=== PATIENT | male | born 1930 | race Caucasian/White ===

== ENCOUNTER 2018-03-23 20:32 | Inpatient (IN) | payer MEDICARE ==
[~2018-03-23] VITALS: Ht 172.7 cm; Wt 92.1 kg
[~2018-03-23 20:32] MED LIST: KEFLEX500 MG PO; LEVOTHYROXINE112 MCG PO; METOPROLOL SUCC50 MG PO; MINOCYCLINE HCL50 MG PO; ULTRAM50 MG PO; WARFARIN SODIUM3 MG PO
[2018-03-23] MEDS ORDERED: MORPHINE SULFATE 2 MG/ML SYR IV STA ×2 (20:38→23:00)
[2018-03-23] MEDS ORDERED: ONDANSETRON HCL INJ 2 MG/ML VIAL IV STA (20:40)
[2018-03-23 21:00] LABS: BASOPHILS # (AUTO) 0.1 (0.0-0.1); BASOPHILS % 0.4 % (0.0-1.0); EOSINOPHILS # (AUTO) 0.1 (0.0-0.4); EOSINOPHILS % 0.3 % (0.0-6.0); HEMATOCRIT 41.5 % (38.2-49.6); HEMOGLOBIN 13.8 g/dL (14.0-18.0); LYMPHOCYTES # (AUTO) 1.5 (1.0-3.2); LYMPHOCYTES % 7.3 % (18.0-39.1); MEAN CORPUSCULAR HEMOGLOBIN 31.2 pg (28-32); MEAN CORPUSCULAR HGB CONC 33.3 g/dL (31-35); MEAN CORPUSCULAR VOLUME 93.9 fL (81-99); MONOCYTES # (AUTO) 1.2 (0.2-0.8); NEUTROPHILS # (AUTO) 17.5 (2.1-6.9); NEUTROPHILS % 84.1 % (38.7-80.0); PLATELET COUNT 182 x10e3/uL (140-360); RED BLOOD COUNT 4.42 x10e6/uL (4.3-5.7); RED CELL DISTRIBUTION WIDTH 15.5 % (11.7-14.4)
[2018-03-23] MEDS ORDERED: DIATRIZOATE MEGL/DIATRIZOA SOD 30 ML BTL PO ONE (21:05)
[2018-03-23 21:13] LABS: INR 1.82; PROTHROMBIN TIME 19.8 seconds (11.9-14.5)
[2018-03-23 21:14] LABS: PARTIAL THROMBOPLASTIN TIME 29.5 seconds (23.8-35.5)
[2018-03-23] MEDS: SODIUM CHLORIDE 0.9% 1000ML 1,000 ML IV SCH (21:20)
[2018-03-23 21:21] LABS: ALBUMIN 3.3 g/dL (3.5-5.0); ALBUMIN/GLOBULIN RATIO 0.8 (0.8-2.0); ANION GAP 14.3 mmol/L (8-16); CALCIUM 9.4 mg/dL (8.4-10.2); CREATININE, SERUM 1.32 mg/dL (0.72-1.25); POTASSIUM 4.3 mmol/L (3.5-5.1)
[2018-03-23 21:27] LABS: CREATINE KINASE MB 1.3 ng/mL (0-5.0)
[2018-03-23 21:39] LABS: CLARITY,URINE CLOUDY (CLEAR); COLOR,URINE YELLOW (YELLOW)
[2018-03-23 21:40] LABS: LEUKOCYTE ESTERASE ,URINE 2+ (NEGATIVE); NITRITE,URINE POSITIVE (NEGATIVE); PROTEIN,URINE DIPSTICK 1+ (NEGATIVE)
[2018-03-23 21:41] LABS: BILIRUBIN,URINE NEGATIVE (NEGATIVE); KETONES,URINE NEGATIVE (NEGATIVE); URINE UROBILINOGEN 0.2 mg/dL (0.2 - 1)
[2018-03-23 21:43] LABS: BACTERIA,URINE MODERATE /HPF; WBC,URINE (MAN) >50 /HPF (0-5)
[2018-03-23 21:44] LABS: EPITHELIAL CELLS,URINE RARE /LPF
[2018-03-23] MEDS ORDERED: SODIUM CHLORIDE 0.9% 1000ML 1,000 ML IV ONE (21:45)
[2018-03-23] MEDS ORDERED: CEFTRIAXONE SOD 1 GM VIAL IV ONE (22:15)
[2018-03-24] VITALS (10 sets, daily range): BP systolic 135–176; BP diastolic 73–99
--- NOTE | 2018-03-24 00:10 | Diagnostic Imaging Report ---
History:Fall Comparison studies:Head CT on 01/10/2017 Technique: Axial images were obtained from the skull base to the vertex. Coronal and sagittal images reconstructed from the axial data. Intravenous contrast: None Findings: Scalp/skull: No abnormalities. Extra-axial spaces: No masses. No fluid collections. Brain sulci: Moderately prominent. Ventricles: Moderate compensatory dilatation. No hydrocephalus. Parenchyma: Scattered hypodensities in the supratentorial white matter are small vessel ischemic changes. An old lacunar insult is centered in the lateral aspect of the right thalamus. No masses, hemorrhage, acute or chronic cortical vascular insults. Sellar/suprasellar region: No abnormalities. Craniocervical junction: Patent foramen magnum. No Chiari one malformation. Incidental findings: Atherosclerotic calcifications in the carotid siphons and left vertebral artery. Artificial lenses in place. Impression: 1. No acute abnormalities. . Chronic findings: 1. Moderate generalized volume loss. 2. Moderate supratentorial white matter small vessel ischemic changes. 3. 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 Signed by: DR Isauro Lang M.D. on 03/24/2018 12:07 AM
--- NOTE | 2018-03-24 00:34 | Diagnostic Imaging Report ---
EXAM: CT ABDOMEN AND PELVIS with IV CONTRAST DATE: 03/23/2018 8:37 PM Time stamp on Exam: 2343 hours INDICATION: Abdominal pain, fall, right flank pain COMPARISON: None TECHNIQUE: The abdomen and pelvis were scanned using a multidetector helical scanner. Coronal and sagittal reformations were obtained. Routine protocol performed. IV Contrast: None Oral Contrast: Gastrografin CTDIvol has been reviewed. It is below the limits set by the Radiation Protocol Committee (RPC). FINDINGS: LOWER THORAX: Mild bibasilar atelectasis. Partially visualized cardiomegaly. LIVER: No masses BILIARY: The gallbladder is unremarkable. No ductal dilation. SPLEEN: No masses PANCREAS: No masses ADRENALS: No nodules KIDNEYS: Edematous appearance of the right kidney in comparison to the left with moderate hydroureteronephrosis, perinephric fat stranding and uroepithelial enhancement. Normal perfusion of the left kidney. No hydroureteronephrosis. Simple cyst of the right kidney measuring 1.8 cm. Simple cortical cyst of the left kidney measuring 1.2 cm. Adjacent subcentimeter hypodensity that is too small to characterize. Diverting ureterostomy with ileoconduit to the right lower quadrant. GI TRACT: No distention, wall thickening or evidence of obstruction. Normal appendix. VESSELS: Advanced atherosclerotic changes of the abdominal aorta and branches. PERITONEUM/RETROPERITONEUM: No free air or fluid LYMPH NODES: No lymphadenopathy REPRODUCTIVE ORGANS: Total prostatectomy. BLADDER: Total cystectomy. SOFT TISSUES: Diverticula in ureterostomy in the right lower pelvis. Large parastomal hernia containing bowel. No evidence of obstruction. BONES: No suspicious bone lesions. Severe degenerative changes of the bilateral hips, right greater than left. IMPRESSION: 1. Total cystoprostatectomy with diverting ureterostomy. Delayed right nephrogram and moderate right hydroureteronephrosis with the level of the obstruction at the ileal conduit junction. No obstruction of the left ureter. Uroepithelial enhancement and right perinephric fat stranding suggest superimposed infection. 2. No evidence of acute injury to the abdomen or pelvis. Signed by: Dr. Patti Posey M.D. on 03/24/2018 12:31 AM
--- NOTE | 2018-03-24 00:35 | Diagnostic Imaging Report ---
EXAM: CHEST SINGLE (PORTABLE), AP 1 view INDICATION: Abdominal pain COMPARISON: None FINDINGS: LINES/TUBES: Left approach single lead cardiac device. LUNGS: Mild bibasilar atelectasis. PLEURA: No effusions or pneumothorax. HEART AND MEDIASTINUM: Mild enlargement of the cardiomediastinal silhouette. BONES AND SOFT TISSUES: No acute findings. IMPRESSION: No acute thoracic abnormality. Signed by: Dr. Patti Posey M.D. on 03/24/2018 12:32 AM
[2018-03-24] MEDS ORDERED: METOPROLOL TARTRATE INJ 1 MG/ML VIAL IV ONE (01:00)
[2018-03-24] MEDS: CEFEPIME HCL 1 GM VIAL IV SCH ×2 (01:19→14:23)
[2018-03-24] MEDS: SODIUM CHLORIDE 0.9% 1000ML 1,000 ML IV SCH ×2 (02:09→16:39)
[2018-03-24] MEDS ORDERED: SODIUM CHLORIDE 0.9% 50ML 50 ML ONE (02:47)
[2018-03-24] MEDS ORDERED: IOPAMIDOL 370 MG/ML 200 ML INFUS..BTL INJ ONE (02:47)
[2018-03-24] MEDS: MORPHINE SULFATE 2 MG/ML SYR IV PRN ×3 (03:00→14:23)
[2018-03-24] MEDS: ONDANSETRON HCL INJ 2 MG/ML VIAL IV PRN ×2 (03:00→06:30)
[2018-03-24] MEDS ORDERED: TRAZODONE HCL50 MG PO (04:42)
[2018-03-24] MEDS ORDERED: WARFARIN SODIUM2 MG PO (04:42)
[2018-03-24] MEDS ORDERED: METOPROLOL TART50 MG PO (05:52)
[2018-03-24] MEDS: LEVOTHYROXINE SODIUM 112 MCG TAB PO SCH (07:53)
[2018-03-24] MEDS ORDERED: METOPROLOL SUCCINATE 50 MG TAB XL PO SCH (09:00)
[2018-03-24] MEDS: TRAMADOL HCL 50 MG TAB PO SCH ×2 (09:16→16:40)
[2018-03-24] MEDS: METOPROLOL TARTRATE 50 MG TAB PO SCH ×2 (09:16→16:40)
[2018-03-24] MEDS ORDERED: PHYTONADIONE 10 MG/ML AMP SC NR (10:00)
--- NOTE | 2018-03-24 11:20 | Consultation ---
DATE OF CONSULTATION: March 24, 2018 UROLOGY CONSULTATION REASON FOR CONSULTATION: Hydronephrosis. HISTORY OF PRESENT ILLNESS: Giovany Orona is an 87-year-old man who was previously evaluated and followed by Dr. Oneil. The patient was diagnosed as having bladder cancer that was invasive, and Dr. Oneil referred the patient to a urologist [place] for performance of a cystectomy. Dr. Mclaughlin performed the patient's radical cystoprostatectomy and has been following him ever since. The patient has been treated by Dr. Mclaughlin for recurrent urinary tract infections. The patient reports not having had a CT. The patient had a fall and reported to the emergency room. He was complaining of abdominal pain and was evaluated and found to have hydronephrosis, and urological consultation was sought. The patient has a history of urinary tract infections and hematuria as well as his bladder cancer. He has not had hematuria since his radical cystectomy. PAST MEDICAL AND SURGICAL HISTORY 1. Status post hernia repair. 2. Status post radical cystoprostatectomy. 3. History of TURBT. 4. Hypertension. 5. Atrial fibrillation. 6. Coronary artery disease. 7. Status post pacemaker/AICD implantation. ALLERGIES: NONE KNOWN. CURRENT MEDICATIONS: Please refer to the MAR. REVIEW OF SYSTEMS: As discussed above in the history of present illness and past medical history, otherwise negative for all systems. FAMILY HISTORY: Noncontributory to the active urological problems. SOCIAL HISTORY: The patient quit smoking in his 30s. 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 Denies smoking, ethanol and drug use. PHYSICAL EXAMINATION GENERAL: Very pleasant, 87-year-old male lying in bed in no apparent distress. VITAL SIGNS: He is currently afebrile, and the vital signs are currently stable. ABDOMEN: Soft, nondistended, nontender without costovertebral angle tenderness. Liver and kidneys are not palpable without hepatosplenomegaly. There is an umbilical hernia in place that is small. GENITOURINARY: The patient has an ileal conduit in the right lower quadrant, seems to be functioning well. The urine output seems to be yellow without any blood. The patient has a normal uncircumcised male phallus with phimosis. I cannot see the meatus. Testes are descended bilaterally and are nontender. For the remaining physical examination systems, please refer to the admission history and physical on the chart. LABORATORY STUDIES: The patient has bilateral renal cysts. He has right-sided hydroureteronephrosis that was listed as moderate with perinephric stranding and uroepithelial enhancement. This CT was done with contrast. There was delayed right nephrogram noted on the CT as well. Urine culture is pending, but it will be a stoma culture. White blood cell count is elevated at 20,810. Hemoglobin is slightly low at 13.8. Platelets are normal at 182,000. The patient's creatinine is elevated at 1.32. Urinalysis is significant for nitrite-positive urine with 6-10 RBCs and greater than 50 WBCs. Urine culture is pending. ASSESSMENT 1. Bladder cancer, status post radical cystoprostatectomy. 2. Ileal conduit. 3. Right hydroureteronephrosis. 4. Phimosis. 5. Urinary tract infection. 6. Pyelonephritis. 7. Hematuria. 8. Umbilical hernia. 9. Renal cysts. 10. Leukocytosis. 11. Chronic renal insufficiency. 12. Anemia. PLAN 1. Defer to hematology and the electrolyte abnormalities to the primary physician. 2. I will have the radiologist place a right percutaneous nephrostomy. 3. I agree with current broad-spectrum antibiotics and will follow the patient's clinical status. Thank you very much for involving us in the care of your patient. We will be happy to follow him along with you, as well as an outpatient. GUI MELGOZA MD Job#: [id number] cc:KATHY IBARRA MD
[2018-03-24] MEDS ORDERED: WARFARIN SOD 2 MG TAB PO SCH (17:00)
[2018-03-24] MEDS: TRAZODONE HCL 50 MG TAB PO SCH (20:06)
[2018-03-25] VITALS (25 sets, daily range): BP systolic 67–170; BP diastolic 51–111
[2018-03-25] MEDS: CEFEPIME HCL 1 GM VIAL IV SCH ×2 (01:11→12:57)
[2018-03-25] MEDS: SODIUM CHLORIDE 0.9% 1000ML 1,000 ML IV SCH ×2 (01:14→13:00)
[2018-03-25] MEDS: MORPHINE SULFATE 2 MG/ML SYR IV PRN ×2 (04:00→08:15)
[2018-03-25 04:45] LABS: BASOPHILS # (AUTO) 0.1 (0.0-0.1); BASOPHILS % 0.4 % (0.0-1.0); EOSINOPHILS # (AUTO) 0.2 (0.0-0.4); EOSINOPHILS % 0.8 % (0.0-6.0); HEMATOCRIT 38.2 % (38.2-49.6); HEMOGLOBIN 12.4 g/dL (14.0-18.0); LYMPHOCYTES # (AUTO) 1.4 (1.0-3.2); LYMPHOCYTES % 6.7 % (18.0-39.1); MEAN CORPUSCULAR HEMOGLOBIN 31.1 pg (28-32); MEAN CORPUSCULAR HGB CONC 32.5 g/dL (31-35); MEAN CORPUSCULAR VOLUME 95.7 fL (81-99); MONOCYTES # (AUTO) 1.2 (0.2-0.8); MONOCYTES % 5.9 % (4.4-11.3); NEUTROPHILS # (AUTO) 17.5 (2.1-6.9); PLATELET COUNT 177 x10e3/uL (140-360); RED BLOOD COUNT 3.99 x10e6/uL (4.3-5.7); RED CELL DISTRIBUTION WIDTH 15.8 % (11.7-14.4)
[2018-03-25 05:09] LABS: ALANINE AMINOTRANSFERASE 16 IU/L (0-55); ALBUMIN/GLOBULIN RATIO 0.9 (0.8-2.0); ALKALINE PHOSPHATASE 64 IU/L (40-150); ANION GAP 13.5 mmol/L (8-16); BLOOD UREA NITROGEN 22 mg/dL (7-26); BUN/CREATININE RATIO 20 (6-25); CARBON DIOXIDE 20 mmol/L (22-29); CHLORIDE 107 mmol/L (98-107); CREATININE, SERUM 1.11 mg/dL (0.72-1.25); EST GLOMERULAR FILTRATION RATE > 60 ML/MIN (60-); GLUCOSE 113 mg/dL (74-118); POTASSIUM 4.5 mmol/L (3.5-5.1); SODIUM 136 mmol/L (136-145)
[2018-03-25 06:09] LABS: INR 1.54; PROTHROMBIN TIME 17.4 seconds (11.9-14.5)
[2018-03-25] MEDS: LEVOTHYROXINE SODIUM 112 MCG TAB PO SCH (07:30)
[2018-03-25] MEDS ORDERED: NITROGLYCERIN 0.4 MG SUBL SL PRN (08:15)
[2018-03-25] MEDS: TRAMADOL HCL 50 MG TAB PO SCH ×2 (09:00→18:01)
[2018-03-25] MEDS ORDERED: HYDRALAZINE HCL 20 MG/ML VIAL IV PRN (09:00)
[2018-03-25] MEDS ORDERED: ASPIRIN 81 MG CHEW TAB PO ONE ×3 (09:00→09:30)
[2018-03-25] MEDS: METOPROLOL TARTRATE 50 MG TAB PO SCH ×2 (09:00→18:02)
[2018-03-25] MEDS ORDERED: LABETALOL HCL 5 MG/ML 20ML VIAL IV PRN (09:15)
[2018-03-25 09:38] LABS: CREATINE KINASE MB 3.2 ng/mL (0-5.0)
[2018-03-25] MEDS ORDERED: MIDAZOLAM HCL 2 MG/2 ML VIAL ONE (13:30)
[2018-03-25] MEDS ORDERED: FENTANYL CITRATE/PF 100MCG/2 ML INJ ONE (13:31)
[2018-03-25] MEDS ORDERED: SODIUM CHLORIDE 0.9% 500ML 500 ML ONE (13:31)
[2018-03-25] MEDS ORDERED: LIDOCAINE HCL 2% LOCAL 20 ML VIAL ONE (13:31)
--- NOTE | 2018-03-25 15:28 | Consultation ---
DATE OF CONSULTATION: March 25, 2018 REASON FOR CONSULTATION: Atrial fibrillation. HISTORY OF PRESENT ILLNESS: Mr. Orona is an 87-year-old gentleman with a past medical history as listed below. Reportedly, he fell on Saturday. Patient states that he was in his recliner and his walker was close by. He stood up to get hold of his walker, slipped and fell down on his back and hurt his head, but did not lose consciousness. Since then, he has been having pain from his abdomen to his chest and back. It waxes and wanes. This morning he had some chest pain, which has subsided now. His pain is mostly in his bladder region and lower abdomen. He is scheduled to undergo nephrostomy. He has a history of atrial fibrillation and has been taking warfarin, which has been held. He has acute pyelonephritis. The patient has a history of invasive bladder cancer, and has undergone radical cystoprostatectomy. REVIEW OF SYSTEMS CONSTITUTIONAL: Has some fatigue and weakness. HEENT: No headache, blurring of vision, seizures, or syncope. CARDIOVASCULAR: Had chest pain. Some dyspnea, orthopnea, and PND. RESPIRATORY: No cough, fever or expectoration. GI: Has abdominal pain. No vomiting or diarrhea. : Had dysuria and frequency. ALLERGIES: NO KNOWN DRUG ALLERGIES. MEDICATIONS: See list. PAST MEDICAL HISTORY: History of hypertension, history of atrial fibrillation, history of permanent pacemaker insertion about 2 years back at [place], history of invasive bladder cancer, history of hypothyroidism. SOCIAL HISTORY: Does not smoke or drink. He quit smoking in his 30s. FAMILY HISTORY: Noncontributory. PAST SURGICAL HISTORY: History of hernia repair, history of right prostatectomy, history of TURBT. PHYSICAL EXAMINATION GENERAL: Moderately built and nourished gentleman. He is awake, alert and not in any obvious distress. VITALS: Heart rate is 80, blood pressure 143/88, respiratory rate 18, temperature 96.8. HEENT: Atraumatic. NECK: No JVD, bruit, thyromegaly, or lymphadenopathy. CARDIOVASCULAR: First and 2nd heart sounds heard. No murmurs, rubs or gallops appreciated. CHEST: Decreased air entry at the bases. No adventitious sounds appreciated. ABDOMEN: Soft. Mild suprapubic tenderness. EXTREMITIES: No edema. LABS: Sodium 136, potassium 4.5, chloride 107, bicarb 20, BUN is 22, creatinine 1.1, glucose 113. Hemoglobin is 12.4, hematocrit 38.2 and platelets 177,000. White count is 20.5. EKG shows atrial fibrillation at 113 beats per minute. Normal axis. Normal intervals. Nonspecific ST-T changes. Troponin 0.021 and 0.118. IMPRESSION 1. Status post fall. 2. Acute pyelonephritis. 3. Chest pain and abdominal pain. 4. History of bladder cancer: Status post radical cystoprostatectomy and ileal conduit. 5. Atrial fibrillation. 6. Hypertension. 7. History of permanent pacemaker insertion. PLAN 1. The patients' heart rate is on the higher side. 2. Will place him on IV metoprolol and p.o. metoprolol. 3. Get echocardiogram to assess LV function and valvular function. 4. The patient is chest pain free. His troponins are normal. His pain is mostly confined to his abdominal region. 5. Continue with antibiotics. 6. The patient is scheduled to undergo nephrostomy. His heart rate is on the higher side. He can go ahead and proceed with a nephrostomy. He may need metoprolol perioperatively. The patient is at moderate risk. He has been explained about the risks and benefits. The patient's warfarin has been held. Further cardiac workup depending on clinical course. As always, I appreciate and thank you very much for the referral. Job#: [id number] JULIA SEPULVEDA
[2018-03-25] MEDS ORDERED: DILTIAZEM HCL IV SOLN 125 MG in SODIUM CHLORIDE 0.9% 100 ML 100 ML IV STA (15:32)
[2018-03-25] MEDS ORDERED: DILTIAZEM HCL 5 MG/ML 5 ML VIAL IV ONE (15:35)
[2018-03-25 15:55] LABS: CREATINE KINASE MB 4.1 ng/mL (0-5.0)
[2018-03-25] MEDS: DILTIAZEM HCL IV SOLN 125 MG in SODIUM CHLORIDE 0.9% 100 ML 100 ML IV SCH (20:00)
[2018-03-25] MEDS: TRAZODONE HCL 50 MG TAB PO SCH (20:38)
[2018-03-25] MEDS: BISACODYL 5 MG TAB EC PO SCH (20:39)
[2018-03-25 23:52] LABS: CREATINE KINASE MB 4.1 ng/mL (0-5.0)
[2018-03-26] VITALS (11 sets, daily range): BP systolic 102–174; BP diastolic 64–121
[2018-03-26] MEDS: CEFEPIME HCL 1 GM VIAL IV SCH (01:02)
[2018-03-26 04:50] LABS: BASOPHILS % 0.3 % (0.0-1.0); EOSINOPHILS # (AUTO) 0.1 (0.0-0.4); EOSINOPHILS % 0.6 % (0.0-6.0); HEMATOCRIT 34.2 % (38.2-49.6); HEMOGLOBIN 10.9 g/dL (14.0-18.0); LYMPHOCYTES # (AUTO) 0.9 (1.0-3.2); LYMPHOCYTES % 5.8 % (18.0-39.1); MEAN CORPUSCULAR HEMOGLOBIN 31.4 pg (28-32); MEAN CORPUSCULAR HGB CONC 31.9 g/dL (31-35); MEAN CORPUSCULAR VOLUME 98.6 fL (81-99); MONOCYTES # (AUTO) 1.2 (0.2-0.8); MONOCYTES % 7.9 % (4.4-11.3); NEUTROPHILS # (AUTO) 13.3 (2.1-6.9); NEUTROPHILS % 84.3 % (38.7-80.0); PLATELET COUNT 140 x10e3/uL (140-360); RED BLOOD COUNT 3.47 x10e6/uL (4.3-5.7); RED CELL DISTRIBUTION WIDTH 15.8 % (11.7-14.4)
[2018-03-26 05:21] LABS: ALANINE AMINOTRANSFERASE 13 IU/L (0-55); ALBUMIN 2.7 g/dL (3.5-5.0); ALBUMIN/GLOBULIN RATIO 0.8 (0.8-2.0); ALKALINE PHOSPHATASE 60 IU/L (40-150); ANION GAP 10.4 mmol/L (8-16); BLOOD UREA NITROGEN 22 mg/dL (7-26); BUN/CREATININE RATIO 21 (6-25); CALCIUM 8.8 mg/dL (8.4-10.2); CARBON DIOXIDE 23 mmol/L (22-29); CHLORIDE 107 mmol/L (98-107); CREATININE, SERUM 1.03 mg/dL (0.72-1.25); EST GLOMERULAR FILTRATION RATE > 60 ML/MIN (60-); GLUCOSE 111 mg/dL (74-118); POTASSIUM 4.4 mmol/L (3.5-5.1); SODIUM 136 mmol/L (136-145)
[2018-03-26] MEDS: BISACODYL 5 MG TAB EC PO SCH ×4 (06:10→23:35)
[2018-03-26] MEDS: LEVOTHYROXINE SODIUM 112 MCG TAB PO SCH (08:30)
[2018-03-26] MEDS: TRAMADOL HCL 50 MG TAB PO SCH ×2 (09:47→17:00)
[2018-03-26] MEDS: METOPROLOL TARTRATE 50 MG TAB PO SCH ×2 (09:48→17:00)
--- NOTE | 2018-03-26 15:10 | Diagnostic Imaging Report ---
Date and Time: 03/25/2018 Procedure: Right percutaneous nephrostomy placement pairing machine operator: Dr. Bermeo Pre-operative diagnosis: Right hydronephrosis, status post cystoprostatectomy and ileal conduit Post-operative diagnosis: Right hydronephrosis Conscious Sedation: Fentanyl 25 mcg intravenous. The patient's heart rate and pulse oximetry were continuously monitored by the interventional radiology nurse. Blood pressure was monitored at 5 minute intervals. Additional Medications: Lidocaine 1% for local anesthesia Fluoroscopy time: 1.2 minutes Dose-area Product: 110 cGycm2. Contrast used: 20 cc Isovue-300 Estimated blood loss: Minimal Specimens: 20 cc purulent urine from the right upper collecting system Implants: 10 Romanian locking loop drainage catheter DISCUSSION: Informed consent for the procedure was obtained from the patient and documented in the medical record after discussion of risks and benefits. The patient was placed in the prone position on the angiographic table. The right flank was prepped and draped in the standard sterile fashion. Preliminary sonographic evaluation confirmed a suitable percutaneous approach to the moderately dilated right renal collecting system. 1% lidocaine was infiltrated into the skin and subcutaneous tissues for local anesthesia. Then under continuous sonographic guidance, a 22-gauge, 15 cm needle was used to access a dilated posterior lower pole calyx. A permanent sonographic image was stored. A small amount of dilute contrast material was injected through the needle after return of cloudy urine, documenting appropriate position within the collecting system. A 0.0 1 8-in. wire was advanced centrally and down the right ureter under fluoroscopic guidance. The needle was removed and a 6 Romanian coaxial sheath was advanced over the wire and positioned in the proximal right ureter. The wire and cannula of the sheath were then removed and a 0.0 3 5-in. Amplatz Super Stiff wire was advanced through the sheath and into the proximal ureter. The sheath was removed and the tract was dilated. Then, a 10 Romanian locking loop nephrostomy catheter was advanced over the wire, which was then removed. The locking loop was positioned within the renal pelvis, confirmed by injection of dilute contrast material. Approximately 20 cc of pus were obtained from the right collecting system. A specimen was submitted for Gram stain, aerobic and anaerobic culture. The catheter was flushed with sterile saline and connected to gravity drainage. The catheter was secured to the skin with monofilament nylon suture and a sterile dressing was applied. The patient tolerated the procedure well without immediate complication. FINDINGS: Right pyonephrosis. IMPRESSION: Successful placement of a right percutaneous nephrostomy drainage catheter (10 Romanian locking loop) under sonographic and fluoroscopic guidance. The catheter should remain to gravity drainage. Recommend sterile saline flush 10 cc every shift until urine clears. The patient should return to interventional radiology for routine catheter exchange in 3 months if the catheter is still needed at that time. Signed by: Dr. Hawk Bermeo M.D. on 03/26/2018 2:08 PM
[2018-03-26] MEDS: CIPROFLOXACIN 400 MG/D5W 200ML 200 ML IV SCH (17:00)
[2018-03-26] MEDS: DILTIAZEM HCL IV SOLN 125 MG in SODIUM CHLORIDE 0.9% 100 ML 100 ML IV SCH (20:00)
[2018-03-26] MEDS: TRAZODONE HCL 50 MG TAB PO SCH (21:30)
[2018-03-27] VITALS (7 sets, daily range): BP systolic 91–192; BP diastolic 54–101
[2018-03-27] MEDS: CIPROFLOXACIN 400 MG/D5W 200ML 200 ML IV SCH ×2 (02:51→15:00)
[2018-03-27] MEDS ORDERED: LIDOCAINE HCL (LTA) 4 ML SOLN ONE (07:21)
[2018-03-27] MEDS ORDERED: ACETAMINOPHEN 1000 MG/100 ML 100 ML IV ONE (07:21)
[2018-03-27] MEDS: METOPROLOL TARTRATE 50 MG TAB PO SCH ×2 (08:30→17:00)
[2018-03-27] MEDS: LEVOTHYROXINE SODIUM 112 MCG TAB PO SCH (08:30)
[2018-03-27] MEDS: TRAMADOL HCL 50 MG TAB PO SCH ×2 (08:30→17:00)
[2018-03-27] MEDS: BISACODYL 5 MG TAB EC PO SCH ×4 (08:30→23:56)
[2018-03-27] MEDS: METOPROLOL TARTRATE INJ 1 MG/ML VIAL IV PRN ×2 (09:00→20:57)
[2018-03-27] MEDS: BALSAM PERU/CASTOR OIL 60 GM OINT...G. TP SCH ×2 (10:30→17:00)
[2018-03-27] MEDS: TRAZODONE HCL 50 MG TAB PO SCH (20:57)
[2018-03-28] VITALS (8 sets, daily range): BP systolic 132–190; BP diastolic 75–97
[2018-03-28] MEDS: CIPROFLOXACIN 400 MG/D5W 200ML 200 ML IV SCH ×2 (03:00→16:00)
[2018-03-28 04:41] LABS: BASOPHILS # (AUTO) 0.1 (0.0-0.1); BASOPHILS % 0.5 % (0.0-1.0); EOSINOPHILS # (AUTO) 0.2 (0.0-0.4); EOSINOPHILS % 1.3 % (0.0-6.0); HEMATOCRIT 36.3 % (38.2-49.6); LYMPHOCYTES # (AUTO) 1.2 (1.0-3.2); LYMPHOCYTES % 7.7 % (18.0-39.1); MEAN CORPUSCULAR HEMOGLOBIN 31.4 pg (28-32); MEAN CORPUSCULAR HGB CONC 33.1 g/dL (31-35); MONOCYTES % 6.6 % (4.4-11.3); NEUTROPHILS # (AUTO) 12.4 (2.1-6.9); NEUTROPHILS % 82.4 % (38.7-80.0); PLATELET COUNT 155 x10e3/uL (140-360); RED BLOOD COUNT 3.82 x10e6/uL (4.3-5.7); RED CELL DISTRIBUTION WIDTH 15.6 % (11.7-14.4)
[2018-03-28 04:58] LABS: BLOOD UREA NITROGEN 25 mg/dL (7-26); BUN/CREATININE RATIO 25 (6-25); CALCIUM 9.1 mg/dL (8.4-10.2); CARBON DIOXIDE 23 mmol/L (22-29); CHLORIDE 102 mmol/L (98-107); EST GLOMERULAR FILTRATION RATE > 60 ML/MIN (60-); GLUCOSE 143 mg/dL (74-118); SODIUM 134 mmol/L (136-145)
[2018-03-28] MEDS: BISACODYL 5 MG TAB EC PO SCH ×4 (06:00→20:13)
[2018-03-28] MEDS: TRAMADOL HCL 50 MG TAB PO SCH ×2 (08:12→17:19)
[2018-03-28] MEDS: METOPROLOL TARTRATE 50 MG TAB PO SCH ×2 (08:12→17:20)
[2018-03-28] MEDS: LEVOTHYROXINE SODIUM 112 MCG TAB PO SCH (08:12)
[2018-03-28] MEDS: BALSAM PERU/CASTOR OIL 60 GM OINT...G. TP SCH ×2 (08:30→17:19)
[2018-03-28] MEDS: TRAZODONE HCL 50 MG TAB PO SCH (20:11)
[2018-03-28] MEDS: METOPROLOL TARTRATE INJ 1 MG/ML VIAL IV PRN (20:11)
[2018-03-29] VITALS: BP 155/79
[2018-03-29] MEDS: CIPROFLOXACIN 400 MG/D5W 200ML 200 ML IV SCH (03:30)
[2018-03-29 04:00] VITALS: BP 183/106
[2018-03-29] MEDS: BISACODYL 5 MG TAB EC PO SCH (04:37)
[2018-03-29 07:25] VITALS: BP 189/81
[2018-03-29 07:36] VITALS: BP 136/63
[2018-03-29] MEDS: BALSAM PERU/CASTOR OIL 60 GM OINT...G. TP SCH (08:49)
[2018-03-29] MEDS: METOPROLOL TARTRATE 50 MG TAB PO SCH (08:49)
[2018-03-29] MEDS: TRAMADOL HCL 50 MG TAB PO SCH (08:49)
[2018-03-29] MEDS: LEVOTHYROXINE SODIUM 112 MCG TAB PO SCH (08:49)
[2018-03-29 11:19] VITALS: BP 174/80
[2018-03-29 11:22] VITALS: BP 164/84
== END 2018-03-29 11:27 | disposition home or self-care (01) | DRG 872 ==
LOC: ER 20:32 → MED/SURG2 03-24 00:48 → ICU 03-25 16:46 → MED/SURG3 03-26 11:46
PROVIDERS: ADMIT Internal Medicine; ATTEND Internal Medicine
PROC: 0T9030Z Drainage of Right Kidney with Drainage Device, Percutaneous Approach (ICD-10-PCS; principal; 2018-03-26)
DX: A41.9 Sepsis, unspecified organism (principal); N13.6 Pyonephrosis; N18.3 Chronic kidney disease, stage 3 (moderate); S23.3XXA Sprain of ligaments of thoracic spine, initial encounter; W01.0XXA Fall on same level from slipping, tripping and stumbling without subsequent striking against object, initial encounter; Y93.01 Activity, walking, marching and hiking; Y92.019 Unspecified place in single-family (private) house as the place of occurrence of the external cause; I25.10 Atherosclerotic heart disease of native coronary artery without angina pectoris; I12.9 Hypertensive chronic kidney disease with stage 1 through stage 4 chronic kidney disease, or unspecified chronic kidney disease; Z95.810 Presence of automatic (implantable) cardiac defibrillator; Z85.51 Personal history of malignant neoplasm of bladder; Z96.0 Presence of urogenital implants; N47.1 Phimosis; R31.9 Hematuria, unspecified; K42.9 Umbilical hernia without obstruction or gangrene; N28.1 Cyst of kidney, acquired; D64.9 Anemia, unspecified; D72.829 Elevated white blood cell count, unspecified
CPT/HCPCS: 36415; 50432; 70450; 71045; 74177; 74425; 74470; 76942; 80048; 80053; 81001; 82550; 82553; 83605; 83735; 84443; 84484; 85025; 85610; 85730; 87086; 87186; 93005; 93306; 97139; 99284; J0692; J0696; J2001; J2250; J2270; J2405; J3430; J7030; J7040; Q9967

== ENCOUNTER 2018-04-18 12:22 | Inpatient (IN) | payer MEDICARE ==
[~2018-04-18] VITALS: Ht 170.2 cm; Wt 84.8 kg
[~2018-04-18 12:22] MED LIST changes: +METOPROLOL TART50 MG PO; +TRAZODONE HCL50 MG PO; +WARFARIN SODIUM2 MG PO
[2018-04-18 13:33] LABS: BASOPHILS # (AUTO) 0.1 (0.0-0.1); BASOPHILS % 0.4 % (0.0-1.0); EOSINOPHILS # (AUTO) 0.2 (0.0-0.4); EOSINOPHILS % 1.5 % (0.0-6.0); HEMATOCRIT 41.3 % (38.2-49.6); HEMOGLOBIN 13.6 g/dL (14.0-18.0); LYMPHOCYTES # (AUTO) 1.1 (1.0-3.2); MEAN CORPUSCULAR HEMOGLOBIN 31.8 pg (28-32); MEAN CORPUSCULAR HGB CONC 32.9 g/dL (31-35); MEAN CORPUSCULAR VOLUME 96.5 fL (81-99); MONOCYTES % 6.5 % (4.4-11.3); NEUTROPHILS # (AUTO) 13.2 (2.1-6.9); NEUTROPHILS % 83.4 % (38.7-80.0); PLATELET COUNT 141 x10e3/uL (140-360); RED BLOOD COUNT 4.28 x10e6/uL (4.3-5.7); RED CELL DISTRIBUTION WIDTH 15.7 % (11.7-14.4)
[2018-04-18 15:00] LABS: ANION GAP 14.4 mmol/L (8-16); CALCIUM 9.1 mg/dL (8.4-10.2); CREATININE, SERUM 1.21 mg/dL (0.72-1.25); POTASSIUM 4.4 mmol/L (3.5-5.1)
[2018-04-18 15:22] LABS: BILIRUBIN,URINE NEGATIVE (NEGATIVE); CLARITY,URINE SL CLOUDY (CLEAR); COLOR,URINE YELLOW (YELLOW); KETONES,URINE NEGATIVE (NEGATIVE); LEUKOCYTE ESTERASE ,URINE 1+ (NEGATIVE); NITRITE,URINE POSITIVE (NEGATIVE); PROTEIN,URINE DIPSTICK TRACE (NEGATIVE); URINE UROBILINOGEN 0.2 mg/dL (0.2 - 1)
[2018-04-18 15:38] LABS: BACTERIA,URINE MANY /HPF; WBC,URINE (MAN) 21-50 /HPF (0-5)
[2018-04-18] MEDS ORDERED: MEROPENEM 1GM 100 ML IV STA (16:08)
[2018-04-18] MEDS ORDERED: MORPHINE SULFATE 2 MG/ML SYR IV PRN (16:45)
[2018-04-18] MEDS ORDERED: ONDANSETRON HCL INJ 2 MG/ML VIAL IV PRN (16:45)
[2018-04-18] MEDS ORDERED: MORPHINE SULFATE INJ 4 MG/ML INJ IV PRN (17:00)
[2018-04-18 17:22] LABS: INR 1.34; PARTIAL THROMBOPLASTIN TIME 25.4 seconds (23.8-35.5); PROTHROMBIN TIME 15.6 seconds (11.9-14.5)
[2018-04-18] MEDS: SODIUM CHLORIDE 0.9% 1000ML 1,000 ML IV SCH (17:54)
[2018-04-18 20:00] VITALS: BP 189/95
[2018-04-18] MEDS: METOPROLOL TARTRATE 50 MG TAB PO SCH (20:59)
[2018-04-18] MEDS: MEROPENEM 500 MG VIAL IV SCH (21:00)
[2018-04-18] MEDS: TRAZODONE HCL 50 MG TAB PO SCH (21:00)
[2018-04-18] MEDS ORDERED: MIDAZOLAM HCL 2 MG/2 ML VIAL ONE (21:54)
[2018-04-18] MEDS ORDERED: SODIUM CHLORIDE 0.9% 1000ML 1,000 ML ONE ×2 (21:54→22:04)
[2018-04-18] MEDS ORDERED: FENTANYL CITRATE/PF 100MCG/2 ML INJ ONE (21:54)
[2018-04-18] MEDS ORDERED: MEROPENEM 500MG 500 MG in SODIUM CHLORIDE 0.9% 50ML 50 ML IV SCH (22:00)
[2018-04-18] MEDS ORDERED: LIDOCAINE HCL 2% LOCAL 20 ML VIAL ONE (22:04)
[2018-04-18] MEDS ORDERED: IOPAMIDOL 370 MG/ML 200 ML INFUS..BTL INJ ONE (22:04)
[2018-04-18] MEDS ORDERED: LEVOFLOXACIN 500MG/D5W 100ML 100 ML IV ONE (22:45)
[2018-04-19] VITALS (9 sets, daily range): BP systolic 122–160; BP diastolic 66–93
[2018-04-19] MEDS: SODIUM CHLORIDE 0.9% 1000ML 1,000 ML IV SCH ×3 (00:44→17:49)
[2018-04-19] MEDS: TRAMADOL HCL 50 MG TAB PO SCH ×3 (03:19→17:51)
[2018-04-19 05:14] LABS: BASOPHILS # (AUTO) 0.1 (0.0-0.1); BASOPHILS % 0.3 % (0.0-1.0); EOSINOPHILS # (AUTO) 0.1 (0.0-0.4); EOSINOPHILS % 0.4 % (0.0-6.0); HEMATOCRIT 38.8 % (38.2-49.6); HEMOGLOBIN 12.7 g/dL (14.0-18.0); LYMPHOCYTES # (AUTO) 0.8 (1.0-3.2); LYMPHOCYTES % 4.6 % (18.0-39.1); MEAN CORPUSCULAR HEMOGLOBIN 31.4 pg (28-32); MEAN CORPUSCULAR HGB CONC 32.7 g/dL (31-35); MONOCYTES # (AUTO) 1.4 (0.2-0.8); MONOCYTES % 7.5 % (4.4-11.3); NEUTROPHILS # (AUTO) 15.5 (2.1-6.9); NEUTROPHILS % 86.3 % (38.7-80.0); PLATELET COUNT 141 x10e3/uL (140-360); RED BLOOD COUNT 4.04 x10e6/uL (4.3-5.7); RED CELL DISTRIBUTION WIDTH 15.6 % (11.7-14.4)
[2018-04-19 05:21] LABS: INR 1.49; PROTHROMBIN TIME 16.9 seconds (11.9-14.5)
[2018-04-19 05:33] LABS: ANION GAP 12.8 mmol/L (8-16); BLOOD UREA NITROGEN 29 mg/dL (7-26); BUN/CREATININE RATIO 29 (6-25); CALCIUM 8.6 mg/dL (8.4-10.2); CARBON DIOXIDE 22 mmol/L (22-29); CHLORIDE 104 mmol/L (98-107); CREATININE, SERUM 1.01 mg/dL (0.72-1.25); EST GLOMERULAR FILTRATION RATE > 60 ML/MIN (60-); GLUCOSE 133 mg/dL (74-118); POTASSIUM 3.8 mmol/L (3.5-5.1); SODIUM 135 mmol/L (136-145)
[2018-04-19] MEDS: LEVOTHYROXINE SODIUM 112 MCG TAB PO SCH (06:38)
[2018-04-19] MEDS: MEROPENEM 500 MG VIAL IV SCH ×3 (06:39→21:43)
[2018-04-19] MEDS: METOPROLOL TARTRATE 50 MG TAB PO SCH ×2 (08:02→17:51)
[2018-04-19] MEDS: BALSAM PERU/CASTOR OIL 60 GM OINT...G. TP SCH ×2 (12:20→21:43)
[2018-04-19] MEDS ORDERED: WARFARIN SOD 2 MG TAB PO SCH (17:00)
--- NOTE | 2018-04-19 17:17 | Consultation ---
DATE OF CONSULTATION: April 19, 2018 INFECTIOUS DISEASE CONSULTATION REASON FOR CONSULTATION: Concerned about UTI. HISTORY OF PRESENT ILLNESS: This is a patient who is an 88-year-old white male who has history of nephrostomy. Apparently he was going to see Dr. Camacho's office when he fell outside and he could not stand up. They had to call help to get him in a chair. Apparently while they were trying to get him in the chair, they pulled out the nephrostomy tube and the patient was transferred here to replace it. The patient is complaining of some pain, no fever or chills. This patient has history of bladder cancer, status post colectomy, status post ileal conduit with surgery and nephrostomy. PAST MEDICAL HISTORY: Hypertension, atrial fibrillation, hypothyroidism. ALLERGIES: NKA. SOCIAL HISTORY: There is no smoking, drug abuse, alcohol abuse. FAMILY HISTORY: Otherwise is unremarkable. REVIEW OF SYSTEMS: At the present time, HEENT: Negative. PULMONARY: Negative. CARDIAC: Negative. : Negative. SKIN: There is no other rash. His laboratory data reviewed. His urine culture is still pending. His white count on admission was 15.8, went up to 17.9, hemoglobin 12. His sodium 135, potassium 3.8, creatinine 1.10. MEDICATION LIST: He is currently on meropenem and Coumadin. PHYSICAL EXAMINATION: GENERAL: He is currently alert, oriented, does not seem to be in acute distress. VITALS: Stable, currently afebrile. HEENT: He does not appear icteric. Normocephalic. NECK: Supple. No JVD. No lymphadenopathy, no thyromegaly. CHEST: Clear bilaterally. HEART: S1 and S2. No S3, no S4, no murmur. ABDOMEN: Soft. Bowel sounds present. Nephrosis tube shows bloody fluid. IMPRESSION: 1. Leukocytosis. Concerned about leaking off of the nephrostomy, maybe early prostatitis, especially where there is some pain around the area. Agree with meropenem for the time-being. Recheck CBC, recheck chem panel. 2. History of cancer as above. 3. Debility. Will consider PT/OT. Will follow with you. SALOMÓN MACK MD Job#: [id number] EV
[2018-04-19 18:23] LABS: BILIRUBIN,URINE NEGATIVE (NEGATIVE); CLARITY,URINE CLOUDY (CLEAR); COLOR,URINE YELLOW (YELLOW); KETONES,URINE NEGATIVE (NEGATIVE); LEUKOCYTE ESTERASE ,URINE 2+ (NEGATIVE); NITRITE,URINE NEGATIVE (NEGATIVE); PROTEIN,URINE DIPSTICK 2+ (NEGATIVE); URINE UROBILINOGEN 0.2 mg/dL (0.2 - 1)
[2018-04-19 18:47] LABS: RBC,URINE 21-50 /HPF (0-5); WBC,URINE (MAN) >50 /HPF (0-5)
[2018-04-19 18:50] LABS: BACTERIA,URINE MANY /HPF
[2018-04-19 18:53] LABS: EPITHELIAL CELLS,URINE FEW /LPF
[2018-04-19] MEDS: TRAZODONE HCL 50 MG TAB PO SCH (21:43)
[2018-04-20] VITALS (7 sets, daily range): BP systolic 123–182; BP diastolic 74–107
[2018-04-20] MEDS: SODIUM CHLORIDE 0.9% 1000ML 1,000 ML IV SCH ×3 (02:15→16:44)
[2018-04-20] MEDS: LEVOTHYROXINE SODIUM 112 MCG TAB PO SCH (05:47)
[2018-04-20] MEDS: MEROPENEM 500 MG VIAL IV SCH ×3 (05:47→20:59)
[2018-04-20 05:54] LABS: BASOPHILS % 0.2 % (0.0-1.0); EOSINOPHILS # (AUTO) 0.1 (0.0-0.4); EOSINOPHILS % 0.9 % (0.0-6.0); HEMATOCRIT 34.7 % (38.2-49.6); HEMOGLOBIN 11.4 g/dL (14.0-18.0); LYMPHOCYTES # (AUTO) 0.8 (1.0-3.2); MEAN CORPUSCULAR HEMOGLOBIN 32.2 pg (28-32); MEAN CORPUSCULAR HGB CONC 32.9 g/dL (31-35); MONOCYTES # (AUTO) 0.8 (0.2-0.8); MONOCYTES % 6.2 % (4.4-11.3); NEUTROPHILS # (AUTO) 11.2 (2.1-6.9); NEUTROPHILS % 85.8 % (38.7-80.0); PLATELET COUNT 110 x10e3/uL (140-360); RED BLOOD COUNT 3.54 x10e6/uL (4.3-5.7); RED CELL DISTRIBUTION WIDTH 15.6 % (11.7-14.4)
[2018-04-20 06:06] LABS: INR 1.42; PROTHROMBIN TIME 16.3 seconds (11.9-14.5)
[2018-04-20 06:17] LABS: ANION GAP 11.1 mmol/L (8-16); BLOOD UREA NITROGEN 23 mg/dL (7-26); BUN/CREATININE RATIO 26 (6-25); CALCIUM 8.5 mg/dL (8.4-10.2); CARBON DIOXIDE 23 mmol/L (22-29); CHLORIDE 108 mmol/L (98-107); CREATININE, SERUM 0.87 mg/dL (0.72-1.25); EST GLOMERULAR FILTRATION RATE > 60 ML/MIN (60-); GLUCOSE 107 mg/dL (74-118); POTASSIUM 4.1 mmol/L (3.5-5.1); SODIUM 138 mmol/L (136-145)
[2018-04-20] MEDS: TRAMADOL HCL 50 MG TAB PO SCH ×2 (08:50→17:48)
[2018-04-20] MEDS: BALSAM PERU/CASTOR OIL 60 GM OINT...G. TP SCH ×2 (08:50→20:59)
[2018-04-20] MEDS: METOPROLOL TARTRATE 50 MG TAB PO SCH ×2 (08:50→17:48)
[2018-04-20] MEDS ORDERED: WARFARIN SOD 2 MG TAB PO SCH (17:00)
[2018-04-20] MEDS: TRAZODONE HCL 50 MG TAB PO SCH (20:59)
[2018-04-21] VITALS (11 sets, daily range): BP systolic 140–186; BP diastolic 76–117
[2018-04-21] MEDS: SODIUM CHLORIDE 0.9% 1000ML 1,000 ML IV SCH ×3 (00:09→16:46)
[2018-04-21 04:43] LABS: INR 1.29; PROTHROMBIN TIME 15.1 seconds (11.9-14.5)
[2018-04-21] MEDS: LEVOTHYROXINE SODIUM 112 MCG TAB PO SCH (05:58)
[2018-04-21] MEDS: MEROPENEM 500 MG VIAL IV SCH ×3 (05:58→21:23)
[2018-04-21] MEDS: BALSAM PERU/CASTOR OIL 60 GM OINT...G. TP SCH ×2 (09:11→21:23)
[2018-04-21] MEDS: METOPROLOL TARTRATE 50 MG TAB PO SCH ×2 (09:11→16:45)
[2018-04-21] MEDS: TRAMADOL HCL 50 MG TAB PO SCH ×2 (09:11→16:45)
--- NOTE | 2018-04-21 14:14 | Diagnostic Imaging Report ---
Procedure: Right percutaneous nephrostomy placement with fluoroscopic guidance; attempted right percutaneous nephrostomy rescue. tractor operator: Dr. Deborah Page Pre-operative diagnosis: Right hydronephrosis, status post cystoprostatectomy and ileal conduit Post-operative diagnosis: Right hydronephrosis status post right PCN placement Conscious Sedation: Please see nursing administration records for details of Fentanyl and Versed conscious sedation administered. The patient's heart rate and pulse oximetry were continuously monitored by the interventional radiology nurse. Blood pressure was monitored at 5 minute intervals. Additional Medications: Lidocaine 1% for local anesthesia Fluoroscopy time: 1.6 minutes Dose-area Product: 146.1 cGycm2. Estimated blood loss: Minimal Specimens: None. Implants: 8 Fr Larson King nephrostomy catheter TECHNIQUE/FINDINGS: Informed consent for the procedure was obtained from the patient and documented in the medical record after discussion of risks and benefits. The patient was placed in the prone position on the angiographic table. The right flank was prepped and draped in the standard sterile fashion. Initial examination demonstrated that the there was a small hole in the skin at the prior nephrostomy tube site. We attempted to place a Kumpe catheter through the hole gently and inject contrast with fluoroscopic guidance. A small tract was seen, however it terminated in the subcutaneous tissues and did not extend to the kidney. We were not able to navigate the Kumpe and an .035'' glidewire deeper into the tract. The catheter and wire were removed. Subsequently, preliminary sonographic evaluation confirmed a suitable percutaneous approach to the moderately dilated right renal collecting system as well as the presence of the prior tract visible by ultrasound. 1% lidocaine was infiltrated into the skin and subcutaneous tissues for local anesthesia. Then with fluoroscopic guidance, an 18-gauge, 15 cm Chiba needle was used to access a dilated posterior mid pole calyx. A small amount of dilute contrast material was injected through the needle after return of cloudy urine, documenting appropriate position within the collecting system. An .035 inch Amplatz wire was placed to secure access. The tract was serially dilated. Subsequently an 8 Fr Larson King nephrostomy catheter was advanced over the wire, which was then removed. The pigtail was formed. Contrast injection with fluoroscopy confirmed positioning. The catheter was flushed with sterile saline and connected to gravity drainage. The catheter was secured to the skin with monofilament nylon suture and a sterile dressing was applied. The patient tolerated the procedure well without immediate complication. IMPRESSION: Unable to rescue the prior right nephrostomy tube tract. Subsequent fluoroscopically guided placement of right sided percutaneous nephrostomy catheter (8 Fr DM). The patient should return to interventional radiology for routine catheter exchange in 3 months if the catheter is still needed at that time. The catheter should remain to gravity drainage. Recommend sterile saline flush 10 cc every shift until urine clears. Signed by: Dr. Deborah Page MD on 04/21/2018 2:11 PM
[2018-04-21] MEDS: TRAZODONE HCL 50 MG TAB PO SCH (21:23)
[2018-04-22] VITALS (7 sets, daily range): BP systolic 166–183; BP diastolic 78–95
[2018-04-22 05:22] LABS: INR 1.27; PROTHROMBIN TIME 14.9 seconds (11.9-14.5)
[2018-04-22] MEDS: MEROPENEM 500 MG VIAL IV SCH (05:27)
[2018-04-22] MEDS: LEVOTHYROXINE SODIUM 112 MCG TAB PO SCH (05:27)
[2018-04-22] MEDS: HYDRALAZINE HCL 20 MG/ML VIAL IV PRN (05:34)
[2018-04-22] MEDS: TRAMADOL HCL 50 MG TAB PO SCH ×2 (09:05→16:26)
[2018-04-22] MEDS: BALSAM PERU/CASTOR OIL 60 GM OINT...G. TP SCH ×2 (09:05→23:06)
[2018-04-22] MEDS: METOPROLOL TARTRATE 50 MG TAB PO SCH ×2 (09:05→16:27)
[2018-04-22] MEDS ORDERED: LIDOCAINE HCL 2% LOCAL 20 ML VIAL ONE (12:35)
[2018-04-22] MEDS ORDERED: HEPARIN SOD/SOD CHLORIDE 0 ML ONE (12:35)
[2018-04-22] MEDS ORDERED: SODIUM CHLORIDE 0.9% 1000ML 1,000 ML ONE (12:35)
[2018-04-22] MEDS ORDERED: MIDAZOLAM HCL 2 MG/2 ML VIAL ONE (12:35)
[2018-04-22] MEDS ORDERED: FENTANYL CITRATE/PF 100MCG/2 ML INJ ONE (12:35)
[2018-04-22] MEDS ORDERED: SODIUM CHLORIDE 0.9% 500ML 500 ML ONE (12:39)
[2018-04-22] MEDS: SODIUM CHLORIDE 0.9% 1000ML 1,000 ML IV SCH (14:55)
[2018-04-22] MEDS: AMPICILLIN SOD 1 GM/NS 50ML 50 ML IV SCH ×2 (14:55→22:01)
[2018-04-22] MEDS: TRAZODONE HCL 50 MG TAB PO SCH (21:00)
[2018-04-23] VITALS (8 sets, daily range): BP systolic 121–197; BP diastolic 65–99
[2018-04-23] MEDS: LEVOTHYROXINE SODIUM 112 MCG TAB PO SCH (05:24)
[2018-04-23] MEDS: AMPICILLIN SOD 1 GM/NS 50ML 50 ML IV SCH ×3 (05:24→21:59)
[2018-04-23 06:17] LABS: BASOPHILS # (AUTO) 0.1 (0.0-0.1); BASOPHILS % 0.5 % (0.0-1.0); EOSINOPHILS # (AUTO) 0.2 (0.0-0.4); EOSINOPHILS % 1.5 % (0.0-6.0); HEMATOCRIT 35.3 % (38.2-49.6); HEMOGLOBIN 11.9 g/dL (14.0-18.0); LYMPHOCYTES # (AUTO) 0.7 (1.0-3.2); LYMPHOCYTES % 5.1 % (18.0-39.1); MEAN CORPUSCULAR HGB CONC 33.7 g/dL (31-35); MEAN CORPUSCULAR VOLUME 94.9 fL (81-99); MONOCYTES # (AUTO) 0.8 (0.2-0.8); MONOCYTES % 6.1 % (4.4-11.3); NEUTROPHILS # (AUTO) 11.1 (2.1-6.9); NEUTROPHILS % 85.6 % (38.7-80.0); PLATELET COUNT 135 x10e3/uL (140-360); RED BLOOD COUNT 3.72 x10e6/uL (4.3-5.7); RED CELL DISTRIBUTION WIDTH 15.5 % (11.7-14.4)
[2018-04-23 06:30] LABS: INR 1.28
[2018-04-23 06:37] LABS: ALANINE AMINOTRANSFERASE 14 IU/L (0-55); ALBUMIN 2.7 g/dL (3.5-5.0); ALKALINE PHOSPHATASE 60 IU/L (40-150); ANION GAP 13.9 mmol/L (8-16); BLOOD UREA NITROGEN 19 mg/dL (7-26); BUN/CREATININE RATIO 23 (6-25); CALCIUM 8.5 mg/dL (8.4-10.2); CARBON DIOXIDE 23 mmol/L (22-29); CHLORIDE 107 mmol/L (98-107); CREATININE, SERUM 0.84 mg/dL (0.72-1.25); EST GLOMERULAR FILTRATION RATE > 60 ML/MIN (60-); GLUCOSE 117 mg/dL (74-118); POTASSIUM 3.9 mmol/L (3.5-5.1); SODIUM 140 mmol/L (136-145)
[2018-04-23] MEDS: METOPROLOL TARTRATE 50 MG TAB PO SCH ×2 (08:42→16:50)
[2018-04-23] MEDS: TRAMADOL HCL 50 MG TAB PO SCH ×2 (08:42→17:05)
[2018-04-23] MEDS: BALSAM PERU/CASTOR OIL 60 GM OINT...G. TP SCH ×2 (09:02→21:58)
[2018-04-23] MEDS: SODIUM CHLORIDE 0.9% 1000ML 1,000 ML IV SCH (14:30)
--- NOTE | 2018-04-23 14:41 | Diagnostic Imaging Report ---
Date and Time: 04/22/2018 Procedure: Right antegrade nephrostogram, balloon dilatation of distal right ureteral stricture, retrograde right nephroureteral drainage catheter placement, right percutaneous nephrostomy removal tightening machine operator: Dr. 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 The patient's heart rate and pulse oximetry were continuously monitored by the interventional radiology nurse. Blood pressure was monitored at 5 minute intervals. Additional Medications: Lidocaine 1% for local anesthesia. Fluoroscopy time: 8.5 minutes Dose-area Product: 26346.6 cGycm2. Contrast used: 30 cc Isovue-300 Estimated blood loss: Minimal Specimens: Percutaneous nephrostomy, discarded Implants: 10.2 Algerian, 45 cm locking loop drainage catheter spanning the right lower quadrant urostomy and terminating within the right renal pelvis DISCUSSION: Informed consent for the procedure was obtained from the patient and documented in the medical record after discussion of risks and benefits. The patient was placed in the left lateral decubitus position on the angiographic table. The right flank and existing percutaneous nephrostomy catheter, as well as the right lower quadrant urostomy were prepped and draped in the standard sterile fashion. 1% lidocaine was infiltrated into the skin and subcutaneous tissues along the right percutaneous nephrostomy for local anesthesia. Initially, antegrade nephrostogram was performed through the percutaneous nephrostomy catheter with multiple fluoroscopic images stored. The nephrostomy catheter was cut and a 0.0 3 5-in. Amplatz wire was advanced through the nephrostomy catheter ankle old within the renal pelvis. The catheter was removed and a 6 Algerian sheath was advanced over the wire and positioned within the renal pelvis. The obturator of the sheath was removed. A 0.0 3 5-in. Glidewire was advanced through the sheath alongside the Amplatz wire, and advanced across the distal ureter and ureteral-ileal conduit anastomosis. The Amplatz wire was removed and a 5 Algerian angled catheter was advanced over the Glidewire and positioned within the ileal conduit. Dilute contrast material was injected through the catheter outlining the conduit and pathway to the urostomy. The Glidewire was reintroduced through the catheter and advanced through the ileal conduit and out the urostomy, external to the patient's right lower quadrant abdominal wall. The catheter was advanced over the wire and out the urostomy. The Glidewire was then removed and a 0.0 3 5-in. Amplatz Super Stiff wire was advanced through the Kumpe catheter and externalized at the urostomy. The catheter was removed over the wire. A 5 mm x 40 mm angioplasty balloon was then advanced over the Amplatz wire. Overlapping balloon dilatations of the distal ureter and ureteral-ileal anastomosis were then performed with multiple fluoroscopic images stored. The balloon was deflated and removed over the wire. The angled catheter was then advanced over the wire and externalized out the urostomy. The wire was then removed and reintroduced through the distal aspect of the angled catheter external to the urostomy, terminating outside the proximal margin of the catheter at the right flank. The catheter was removed over the wire. A 10.2 Algerian 45 cm locking loop drainage catheter was advanced over the wire in a retrograde fashion from the urostomy. The catheter tip was positioned at the ureteropelvic junction. The wire was then slowly retracted through the catheter and coiled within the renal pelvis. The catheter was further advanced over the wire and coiled within the renal pelvis. The wire was removed. The locking loop of the catheter was then formed and secured. Injection of dilute contrast material confirmed appropriate positioning of the locking loop within the renal pelvis. The catheter hub protrudes external to the urostomy by approximately 7-8 cm. The catheter was then flushed with sterile saline. The 6 Algerian sheath was then removed from the right flank. A final fluoroscopic image was obtained. The urostomy bag was replaced over the catheter hub and stoma. The patient tolerated the procedure well without immediate complication. FINDINGS: Intermediate segment (approximately 5 cm) severe stricture of the distal [place] right ureter and uretero-ileal anastomosis Contrast injection after ureteroplasty described above shows slight improvement in stricture, with evidence of passage of contrast into the ileal conduit. Otherwise widely patent ileal conduit terminating in a right lower quadrant urostomy. IMPRESSION: Successful right antegrade nephrostogram, balloon angioplasty of the distal right ureteral and anastomotic stricture, followed by conversion of a percutaneous nephrostomy to a retrograde nephrostomy drainage catheter, with the locking loop secured within the renal pelvis and the catheter hub protruding from the urostomy as described above. Signed by: Dr. Hawk Bermeo M.D. on 04/23/2018 2:37 PM
[2018-04-23] MEDS: HYDRALAZINE HCL 20 MG/ML VIAL IV PRN (16:48)
[2018-04-23] MEDS: TRAZODONE HCL 50 MG TAB PO SCH (21:58)
[2018-04-24] VITALS (9 sets, daily range): BP systolic 121–190; BP diastolic 66–100
[2018-04-24 06:15] LABS: INR 1.28
[2018-04-24] MEDS: AMPICILLIN SOD 1 GM/NS 50ML 50 ML IV SCH ×2 (06:16→14:30)
[2018-04-24] MEDS: LEVOTHYROXINE SODIUM 112 MCG TAB PO SCH (06:16)
[2018-04-24] MEDS: TRAMADOL HCL 50 MG TAB PO SCH ×2 (08:03→17:15)
[2018-04-24] MEDS: METOPROLOL TARTRATE 50 MG TAB PO SCH ×2 (08:03→17:15)
[2018-04-24] MEDS: SODIUM CHLORIDE 0.9% 1000ML 1,000 ML IV SCH ×2 (11:06→21:47)
[2018-04-24] MEDS: BALSAM PERU/CASTOR OIL 60 GM OINT...G. TP SCH ×2 (11:07→21:46)
[2018-04-24] MEDS ORDERED: LIDOCAINE HCL 2% LOCAL 20 ML VIAL ONE (11:30)
[2018-04-24] MEDS ORDERED: SODIUM CHLORIDE 0.9% 500ML 500 ML ONE (11:31)
[2018-04-24] MEDS ORDERED: IOPAMIDOL 300MG/ML 50ML INFUS..BTL IV ONE (11:31)
[2018-04-24] MEDS ORDERED: FENTANYL CITRATE/PF 100MCG/2 ML INJ ONE (11:56)
[2018-04-24] MEDS ORDERED: MIDAZOLAM HCL 2 MG/2 ML VIAL ONE (11:56)
[2018-04-24] MEDS: HYDRALAZINE HCL 20 MG/ML VIAL IV PRN (13:10)
[2018-04-24] MEDS ORDERED: CLONIDINE HCL 0.1 MG TAB PO PRN (21:00)
[2018-04-24] MEDS: AMOXICILLIN 250 MG CAP PO SCH (21:46)
[2018-04-24] MEDS: TRAZODONE HCL 50 MG TAB PO SCH (22:12)
[2018-04-25] VITALS: BP 121/66
[2018-04-25 04:00] VITALS: BP 152/96
[2018-04-25] MEDS: AMOXICILLIN 250 MG CAP PO SCH (06:02)
[2018-04-25] MEDS: LEVOTHYROXINE SODIUM 112 MCG TAB PO SCH (06:02)
[2018-04-25 06:08] LABS: INR 1.28
[2018-04-25 07:25] VITALS: BP 169/77
[2018-04-25 07:42] VITALS: BP 169/77
[2018-04-25] MEDS: BALSAM PERU/CASTOR OIL 60 GM OINT...G. TP SCH (09:35)
[2018-04-25] MEDS: METOPROLOL TARTRATE 50 MG TAB PO SCH (09:35)
[2018-04-25] MEDS: TRAMADOL HCL 50 MG TAB PO SCH (09:35)
[2018-04-25] MEDS ORDERED: AMOXICILLIN250 MG PO (11:25)
[2018-04-25 11:30] VITALS: BP 182/86
== END 2018-04-25 11:43 | disposition home or self-care (01) | DRG 659 ==
LOC: ER 12:22 → ERHOLD 17:42 → MED/SURG3 19:00 → OBSVTOIN 04-21 10:49
PROVIDERS: ADMIT Internal Medicine; ATTEND Internal Medicine
PROC: 0T133JD Bypass Right Kidney Pelvis to Cutaneous with Synthetic Substitute, Percutaneous Approach (ICD-10-PCS; principal; 2018-04-21)
PROC: BT111ZZ Fluoroscopy of Right Kidney using Low Osmolar Contrast (ICD-10-PCS; 2018-04-21)
PROC: 0T763ZZ Dilation of Right Ureter, Percutaneous Approach (ICD-10-PCS; 2018-04-22)
PROC: BT111ZZ Fluoroscopy of Right Kidney using Low Osmolar Contrast (ICD-10-PCS; 2018-04-22)
PROC: 0TP5X0Z Removal of Drainage Device from Kidney, External Approach (ICD-10-PCS; 2018-04-22)
PROC: 0T9630Z Drainage of Right Ureter with Drainage Device, Percutaneous Approach (ICD-10-PCS; 2018-04-22)
DX: T83.512A Infection and inflammatory reaction due to nephrostomy catheter, initial encounter (principal); A41.51 Sepsis due to Escherichia coli [E. coli]; A40.8 Other streptococcal sepsis; N39.0 Urinary tract infection, site not specified; N12 Tubulo-interstitial nephritis, not specified as acute or chronic; N13.6 Pyonephrosis; E87.1 Hypo-osmolality and hyponatremia; L89.621 Pressure ulcer of left heel, stage 1; L89.611 Pressure ulcer of right heel, stage 1; I48.91 Unspecified atrial fibrillation; I25.10 Atherosclerotic heart disease of native coronary artery without angina pectoris; I10 Essential (primary) hypertension; Z85.51 Personal history of malignant neoplasm of bladder; E03.9 Hypothyroidism, unspecified; R53.81 Other malaise; D64.9 Anemia, unspecified; R31.9 Hematuria, unspecified; F03.90 Unspecified dementia, unspecified severity, without behavioral disturbance, psychotic disturbance, mood disturbance, and anxiety; Z96.0 Presence of urogenital implants
CPT/HCPCS: 36415; 50432; 50435; 50693; 74425; 74470; 76937; 80048; 80053; 81001; 83735; 85025; 85610; 85730; 87086; 87186; 93005; 96361; 97139; 99284; C1766; G0378; J0290; J0360; J1956; J2001; J2185; J2250; J2270; J2405; J7030; J7040; Q9967

== ENCOUNTER 2018-05-13 19:48 | Inpatient (IN) | payer MEDICARE ==
[~2018-05-13] VITALS: Ht 170.2 cm; Wt 86.0 kg
[~2018-05-13 19:48] MED LIST changes: +AMOXICILLIN250 MG PO
[2018-05-13] MEDS ORDERED: SODIUM CHLORIDE 0.9% 500ML 500 ML IV ONE (20:15)
[2018-05-13 21:08] LABS: BASOPHILS # (AUTO) 0.1 (0.0-0.1); BASOPHILS % 0.5 % (0.0-1.0); EOSINOPHILS # (AUTO) 0.2 (0.0-0.4); EOSINOPHILS % 0.8 % (0.0-6.0); HEMATOCRIT 43.7 % (38.2-49.6); HEMOGLOBIN 14.2 g/dL (14.0-18.0); LYMPHOCYTES # (AUTO) 1.1 (1.0-3.2); LYMPHOCYTES % 5.9 % (18.0-39.1); MEAN CORPUSCULAR HEMOGLOBIN 32.3 pg (28-32); MEAN CORPUSCULAR HGB CONC 32.5 g/dL (31-35); MEAN CORPUSCULAR VOLUME 99.5 fL (81-99); MONOCYTES # (AUTO) 1.2 (0.2-0.8); MONOCYTES % 6.6 % (4.4-11.3); NEUTROPHILS % 84.6 % (38.7-80.0); PLATELET COUNT 135 x10e3/uL (140-360); RED BLOOD COUNT 4.39 x10e6/uL (4.3-5.7); RED CELL DISTRIBUTION WIDTH 15.4 % (11.7-14.4)
[2018-05-13 21:10] LABS: BILIRUBIN,URINE NEGATIVE (NEGATIVE); CLARITY,URINE CLOUDY (CLEAR); COLOR,URINE YELLOW (YELLOW); KETONES,URINE NEGATIVE (NEGATIVE); LEUKOCYTE ESTERASE ,URINE 2+ (NEGATIVE); NITRITE,URINE NEGATIVE (NEGATIVE); PROTEIN,URINE DIPSTICK TRACE (NEGATIVE); URINE UROBILINOGEN 0.2 mg/dL (0.2 - 1)
[2018-05-13 21:11] LABS: AMORPHOUS SEDIMENT,URINE MANY (FEW); BACTERIA,URINE MODERATE /HPF
[2018-05-13 21:14] LABS: CLARITY,URINE CLOUDY (CLEAR); COLOR,URINE YELLOW (YELLOW); LEUKOCYTE ESTERASE ,URINE 2+ (NEGATIVE)
[2018-05-13 21:15] LABS: BILIRUBIN,URINE NEGATIVE (NEGATIVE); KETONES,URINE NEGATIVE (NEGATIVE); NITRITE,URINE POSITIVE (NEGATIVE); PROTEIN,URINE DIPSTICK 1+ (NEGATIVE); URINE UROBILINOGEN 0.2 mg/dL (0.2 - 1)
[2018-05-13 21:17] LABS: AMORPHOUS SEDIMENT,URINE MODERATE (FEW); BACTERIA,URINE MODERATE /HPF; RBC,URINE 0-5 /HPF (0-5); WBC,URINE (MAN) 0-5 /HPF (0-5); YEAST,URINE MODERATE
[2018-05-13 21:19] LABS: INR 1.41; PROTHROMBIN TIME 16.2 seconds (11.9-14.5)
[2018-05-13 21:20] LABS: PARTIAL THROMBOPLASTIN TIME 29.2 seconds (23.8-35.5)
[2018-05-13 21:27] LABS: ALBUMIN 3.3 g/dL (3.5-5.0); ALBUMIN/GLOBULIN RATIO 0.9 (0.8-2.0); ANION GAP 16.4 mmol/L (8-16); CALCIUM 9.6 mg/dL (8.4-10.2); CREATININE, SERUM 1.48 mg/dL (0.72-1.25); MAGNESIUM 1.7 MG/DL (1.3-2.1); POTASSIUM 4.4 mmol/L (3.5-5.1)
[2018-05-13 21:33] LABS: CREATINE KINASE MB 1.6 ng/mL (0-5.0)
--- NOTE | 2018-05-13 22:40 | Diagnostic Imaging Report ---
EXAM: CT ABDOMEN AND PELVIS without IV CONTRAST INDICATION: Kidney breaks not draining, right side COMPARISON: Nephrostomy tube placement fluoroscopic images April 24, [address] of the abdomen and pelvis March 23, 2018 TECHNIQUE: The abdomen and pelvis were scanned using a multidetector helical scanner. Coronal and sagittal reformations were obtained. Dose modulation, iterative reconstruction, and/or weight based adjustment of the mA/kV was utilized to reduce the radiation dose to as low as reasonably achievable. Renal stone protocol performed. IV Contrast: None Oral Contrast: None CTDIvol has been reviewed. It is below the limits set by the Radiation Protocol Committee (RPC). FINDINGS: LOWER THORAX: Bibasilar atelectasis. LIVER: No masses BILIARY: Normal gallbladder. No ductal dilation. SPLEEN: No masses PANCREAS: No masses ADRENALS: No nodules RIGHT KIDNEY: Interval placement of right percutaneous nephrostomy tube which coils in an inferior pole calyx. Minimal residual hydronephrosis and hydroureter. Diverting ureterostomy with ileal conduit to the right lower quadrant. Stable simple renal cysts. LEFT KIDNEY: No hydronephrosis or hydroureter. GI TRACT: No wall thickening or obstruction. 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 PERITONEUM/RETROPERITONEUM: No free air or fluid LYMPH NODES: No lymphadenopathy REPRODUCTIVE ORGANS: Surgical changes of prostatectomy BLADDER: Surgical changes of cystectomy SOFT TISSUES: Right lower quadrant urostomy with associated parastomal bowel-containing hernia. No bowel obstruction. Tiny fat-containing umbilical hernia. BONES: No suspicious bone lesions. IMPRESSION: Minimal residual hydroureteronephrosis status post placement of right percutaneous nephrostomy tube. Surgical changes of cystoprostatectomy with right lower quadrant diverting ureterostomy. Signed by: Dr. Patti Posey M.D. on 05/13/2018 10:03 PM
[2018-05-13] MEDS ORDERED: VANCOMYCIN 1GM/NS 250 ML 250 ML IV ONE (23:00)
[2018-05-13] MEDS ORDERED: VANCOMYCIN 1GM/NS 250 ML 250 ML ONE (23:29)
[2018-05-13] MEDS ORDERED: MEROPENEM 1 GM VIAL ONE (23:29)
[2018-05-13] MEDS: FAMOTIDINE 20 MG/2 ML VIAL IV SCH (23:30)
[2018-05-13] MEDS ORDERED: ONDANSETRON HCL INJ 2 MG/ML VIAL IV PRN (23:30)
[2018-05-13] MEDS ORDERED: SODIUM CHLORIDE 0.45% 100 ML 100 ML IV ONE (23:33)
[2018-05-13] MEDS: MEROPENEM 1GRAM 1 GM in SODIUM CHLORIDE 0.9% 100 ML 100 ML IV SCH (23:41)
[2018-05-14] VITALS (9 sets, daily range): BP systolic 145–174; BP diastolic 74–105
[2018-05-14] MEDS: MEROPENEM 1GRAM 1 GM in SODIUM CHLORIDE 0.9% 100 ML 100 ML IV SCH ×2 (00:20→11:29)
[2018-05-14] MEDS: SODIUM CHLORIDE 0.9% 1000ML 1,000 ML IV SCH ×3 (01:34→22:14)
--- NOTE | 2018-05-14 01:46 | Diagnostic Imaging Report ---
KAYLYN MEMBR[facility] [id number] EXAM: Chest x-ray, AP 1 view INDICATION: Kidney bags not draining COMPARISON: March 23, 2018 FINDINGS: LINES/TUBES: Left approach single lead cardiac device. LUNGS: No consolidations or edema. Mild bibasilar atelectasis. PLEURA: No effusions or pneumothorax. HEART AND MEDIASTINUM: Normal for technique. BONES AND SOFT TISSUES: No acute findings. IMPRESSION: No acute thoracic abnormality. Due to PACS disruption, a preliminary report was provided by Dr. Posey May 14, 2018 at 0132 hours. Signed by: Dr. Patti Posey M.D. on 05/14/2018 1:41 AM
[2018-05-14] MEDS ORDERED: TRAMADOL HCL 50 MG TAB PO PRN (05:45)
[2018-05-14] MEDS ORDERED: METOPROLOL TARTRATE 50 MG TAB PO ONE (05:45)
[2018-05-14 05:54] LABS: BASOPHILS # (AUTO) 0.1 (0.0-0.1); BASOPHILS % 0.4 % (0.0-1.0); EOSINOPHILS # (AUTO) 0.1 (0.0-0.4); EOSINOPHILS % 0.8 % (0.0-6.0); HEMATOCRIT 38.4 % (38.2-49.6); HEMOGLOBIN 12.5 g/dL (14.0-18.0); LYMPHOCYTES # (AUTO) 0.9 (1.0-3.2); LYMPHOCYTES % 5.7 % (18.0-39.1); MEAN CORPUSCULAR HEMOGLOBIN 32.1 pg (28-32); MEAN CORPUSCULAR HGB CONC 32.6 g/dL (31-35); MEAN CORPUSCULAR VOLUME 98.5 fL (81-99); MONOCYTES # (AUTO) 1.1 (0.2-0.8); MONOCYTES % 7.3 % (4.4-11.3); NEUTROPHILS # (AUTO) 12.9 (2.1-6.9); PLATELET COUNT 120 x10e3/uL (140-360); RED CELL DISTRIBUTION WIDTH 15.2 % (11.7-14.4)
[2018-05-14 06:17] LABS: ALANINE AMINOTRANSFERASE 14 IU/L (0-55); ALBUMIN 2.8 g/dL (3.5-5.0); ALBUMIN/GLOBULIN RATIO 0.9 (0.8-2.0); ALKALINE PHOSPHATASE 63 IU/L (40-150); ANION GAP 12.1 mmol/L (8-16); BLOOD UREA NITROGEN 28 mg/dL (7-26); BUN/CREATININE RATIO 25 (6-25); CARBON DIOXIDE 24 mmol/L (22-29); CHLORIDE 106 mmol/L (98-107); CHOL/HDL RATIO 4.3 (3.9-4.7); CHOLESTEROL 169 MD/DL (0-199); CREATINE KINASE 14 IU/L (30-200); CREATININE, SERUM 1.11 mg/dL (0.72-1.25); EST GLOMERULAR FILTRATION RATE > 60 ML/MIN (60-); GLUCOSE 128 mg/dL (74-118); HDL CHOLESTEROL 39 MG/DL (40-60); LDL CHOLESTEROL 117 MG/DL (60-130); POTASSIUM 4.1 mmol/L (3.5-5.1); SODIUM 138 mmol/L (136-145); TRIGLYCERIDES 66 MG/DL (0-149)
[2018-05-14] MEDS: LEVOTHYROXINE SODIUM 112 MCG TAB PO SCH (06:48)
[2018-05-14] MEDS ORDERED: MEROPENEM 1 GM VIAL ONE (08:10)
[2018-05-14] MEDS ORDERED: WARFARIN SOD 2 MG TAB PO SCH (09:00)
[2018-05-14] MEDS: FAMOTIDINE 20 MG/2 ML VIAL IV SCH ×2 (09:56→22:14)
[2018-05-14] MEDS: BALSAM PERU/CASTOR OIL 60 GM OINT...G. TP SCH (09:56)
[2018-05-14 14:44] LABS: CREATINE KINASE MB 1.7 ng/mL (0-5.0)
[2018-05-14] MEDS: METOPROLOL TARTRATE 50 MG TAB PO SCH (22:14)
[2018-05-14] MEDS: TRAZODONE HCL 50 MG TAB PO SCH (22:14)
[2018-05-15] VITALS (9 sets, daily range): BP systolic 139–197; BP diastolic 68–93
[2018-05-15 05:57] LABS: BASOPHILS # (AUTO) 0.1 (0.0-0.1); BASOPHILS % 0.7 % (0.0-1.0); EOSINOPHILS # (AUTO) 0.2 (0.0-0.4); EOSINOPHILS % 1.1 % (0.0-6.0); HEMATOCRIT 37.8 % (38.2-49.6); HEMOGLOBIN 12.2 g/dL (14.0-18.0); LYMPHOCYTES # (AUTO) 0.9 (1.0-3.2); MEAN CORPUSCULAR HEMOGLOBIN 31.9 pg (28-32); MEAN CORPUSCULAR HGB CONC 32.3 g/dL (31-35); MONOCYTES # (AUTO) 1.1 (0.2-0.8); MONOCYTES % 6.9 % (4.4-11.3); NEUTROPHILS # (AUTO) 12.7 (2.1-6.9); PLATELET COUNT 118 x10e3/uL (140-360); RED BLOOD COUNT 3.82 x10e6/uL (4.3-5.7); RED CELL DISTRIBUTION WIDTH 15.3 % (11.7-14.4)
[2018-05-15 06:11] LABS: ANION GAP 12.5 mmol/L (8-16); BLOOD UREA NITROGEN 19 mg/dL (7-26); BUN/CREATININE RATIO 20 (6-25); CARBON DIOXIDE 23 mmol/L (22-29); CHLORIDE 109 mmol/L (98-107); CREATININE, SERUM 0.94 mg/dL (0.72-1.25); EST GLOMERULAR FILTRATION RATE > 60 ML/MIN (60-); GLUCOSE 134 mg/dL (74-118); POTASSIUM 4.5 mmol/L (3.5-5.1); SODIUM 140 mmol/L (136-145)
[2018-05-15] MEDS: LEVOTHYROXINE SODIUM 112 MCG TAB PO SCH (06:24)
[2018-05-15] MEDS: SODIUM CHLORIDE 0.9% 1000ML 1,000 ML IV SCH ×2 (06:32→16:08)
[2018-05-15] MEDS: MEROPENEM 1GRAM 1 GM in SODIUM CHLORIDE 0.9% 100 ML 100 ML IV SCH ×2 (08:14→22:49)
[2018-05-15] MEDS: FAMOTIDINE 20 MG/2 ML VIAL IV SCH ×2 (08:14→22:48)
[2018-05-15] MEDS: BALSAM PERU/CASTOR OIL 60 GM OINT...G. TP SCH (08:14)
[2018-05-15] MEDS: METOPROLOL TARTRATE 50 MG TAB PO SCH ×2 (08:14→21:05)
[2018-05-15] MEDS ORDERED: LIDOCAINE HCL 2% LOCAL 20 ML VIAL ONE (10:27)
[2018-05-15] MEDS ORDERED: SODIUM CHLORIDE 0.9% 500ML 500 ML ONE ×2 (10:28→12:04)
[2018-05-15] MEDS ORDERED: FENTANYL CITRATE/PF 100MCG/2 ML INJ ONE (12:05)
[2018-05-15] MEDS ORDERED: MIDAZOLAM HCL 2 MG/2 ML VIAL ONE (12:05)
[2018-05-15] MEDS ORDERED: FLUMAZENIL 0.5MG/ 5ML VIAL ONE (12:51)
[2018-05-15] MEDS: CLONIDINE HCL 0.1 MG TAB PO PRN (15:40)
[2018-05-15] MEDS: TRAZODONE HCL 50 MG TAB PO SCH (21:05)
[2018-05-15] MEDS ORDERED: MEROPENEM 1 GM VIAL ONE (21:10)
[2018-05-16] VITALS (7 sets, daily range): BP systolic 108–193; BP diastolic 57–86
[2018-05-16] MEDS: SODIUM CHLORIDE 0.9% 1000ML 1,000 ML IV SCH ×2 (01:00→16:30)
[2018-05-16] MEDS: LEVOTHYROXINE SODIUM 112 MCG TAB PO SCH (05:46)
[2018-05-16] MEDS: METOPROLOL TARTRATE 50 MG TAB PO SCH ×2 (09:00→21:29)
[2018-05-16] MEDS: BALSAM PERU/CASTOR OIL 60 GM OINT...G. TP SCH (09:00)
[2018-05-16] MEDS: FAMOTIDINE 20 MG/2 ML VIAL IV SCH ×2 (09:00→21:28)
[2018-05-16] MEDS: MEROPENEM 1GRAM 1 GM in SODIUM CHLORIDE 0.9% 100 ML 100 ML IV SCH ×2 (09:00→21:28)
[2018-05-16] MEDS ORDERED: BISACODYL 5 MG TAB EC PO ONE (13:15)
[2018-05-16] MEDS ORDERED: MEROPENEM 1 GM VIAL ONE (20:52)
[2018-05-16] MEDS: TRAZODONE HCL 50 MG TAB PO SCH (21:28)
[2018-05-17] VITALS (7 sets, daily range): BP systolic 151–189; BP diastolic 68–98
[2018-05-17] MEDS: SODIUM CHLORIDE 0.9% 1000ML 1,000 ML IV SCH ×3 (04:00→23:35)
[2018-05-17] MEDS: CLONIDINE HCL 0.1 MG TAB PO PRN (04:50)
[2018-05-17] MEDS: LEVOTHYROXINE SODIUM 112 MCG TAB PO SCH (06:20)
[2018-05-17] MEDS ORDERED: MEROPENEM 1 GM VIAL ONE (07:34)
[2018-05-17] MEDS: MEROPENEM 1GRAM 1 GM in SODIUM CHLORIDE 0.9% 100 ML 100 ML IV SCH (08:53)
[2018-05-17] MEDS: METOPROLOL TARTRATE 50 MG TAB PO SCH ×2 (08:53→21:28)
[2018-05-17] MEDS: FAMOTIDINE 20 MG/2 ML VIAL IV SCH ×2 (08:53→21:27)
[2018-05-17] MEDS: BALSAM PERU/CASTOR OIL 60 GM OINT...G. TP SCH (08:54)
[2018-05-17] MEDS: CEFTRIAXONE SOD 1 GM VIAL IV SCH (17:19)
--- NOTE | 2018-05-17 17:30 | Progress Note ---
DATE: INFECTIOUS DISEASE PROGRESS NOTE SUBJECTIVE: Mr. Orona is lying in bed comfortably. Has no complaints. He is weak, however. PHYSICAL EXAMINATION GENERAL: He is currently alert, oriented, weak, does not seem to be in acute distress. VITAL SIGNS: Stable. Currently afebrile. HEENT: He does not appear icteric. NECK: Supple. CHEST: Clear. HEART: S1 and S2. No S3 or S4, no murmur. ABDOMEN: Soft. IMPRESSION: Bacteriuria with Escherichia coli and yeast. Clinically seems to be stable. Will discontinue meropenem. Will change him to Rocephin and Diflucan. Debility will need PT/OT. Can switch to oral antibiotic. Continue with PT/OT. Will follow. Job#: [id number] EV
[2018-05-17] MEDS: TRAZODONE HCL 50 MG TAB PO SCH (21:27)
[2018-05-18] VITALS: BP 196/98
[2018-05-18] MEDS: CLONIDINE HCL 0.1 MG TAB PO PRN ×2 (00:59→12:16)
[2018-05-18 04:00] VITALS: BP 195/98
[2018-05-18] MEDS: LEVOTHYROXINE SODIUM 112 MCG TAB PO SCH (06:21)
[2018-05-18 08:00] VITALS: BP 147/112
[2018-05-18] MEDS: FLUCONAZOLE 100 MG TAB PO SCH (08:37)
[2018-05-18] MEDS: METOPROLOL TARTRATE 50 MG TAB PO SCH ×2 (08:38→21:25)
[2018-05-18] MEDS: AMLODIPINE BESYLATE 5 MG TAB PO SCH (08:38)
[2018-05-18] MEDS: BALSAM PERU/CASTOR OIL 60 GM OINT...G. TP SCH (08:38)
[2018-05-18] MEDS: FAMOTIDINE 20 MG/2 ML VIAL IV SCH ×2 (09:00→21:24)
[2018-05-18] MEDS: SODIUM CHLORIDE 0.9% 1000ML 1,000 ML IV SCH ×2 (11:51→16:31)
[2018-05-18 12:00] VITALS: BP 177/100
--- NOTE | 2018-05-18 14:06 | Progress Note ---
DATE: Mr. Orona is doing well. There is no new complaints. Comfortable. REVIEW OF SYSTEMS: Unremarkable. PHYSICAL EXAMINATION GENERAL: He is currently alert and oriented. Does not seem in acute distress. VITAL SIGNS: Stable. Afebrile. HEENT: He is not icteric. NECK: Supple. CHEST: Clear. HEART: S1 and S2. No murmur. ABDOMEN: Soft. Bowel sounds present. EXTREMITIES: No edema. SKIN: No rashes. LABS: His white count last time was 15.12. His sodium is 140, potassium 4.5 and creatinine 0.94. IMPRESSION: Bacteruria with urinary tract infection. Continue with fluconazole. Continue with Rocephin. Continue with therapy. Will follow. Job#: [id number] JULIA
[2018-05-18 16:00] VITALS: BP 145/86
--- NOTE | 2018-05-18 16:46 | Consultation ---
DATE OF CONSULTATION: INFECTIOUS DISEASE CONSULTATION REASON FOR CONSULTATION: UTI. HISTORY OF PRESENT ILLNESS: Thank you so much for asking me to see this patient. This patient, who is an 88-year-old, comes in with problem with is catheter. The patient had the radical cystectomy. The patient had PCN exchange, nephrostomy, is have a urethral stricture. The patient comes into the hospital because of having problem with the catheter. Patient was seen by Urology. He had an episode of chills and leukocytosis, was started on IV antibiotic. Infectious Disease was consulted. The patient is currently lying in bed comfortably, his at the bedside. Patient was seen on May 16. This was dictated later because I could not find the original consult I dictated. Patient has no other complaints at the present time. There is no fever, no chills. PHYSICAL EXAMINATION GENERAL: He is currently alert, oriented, does not seem to be in acute distress. VITAL SIGNS: Stable. Currently afebrile. HEENT: He is normocephalic, does not appear icteric. NECK: Supple. No JVD, no lymphadenopathy, no thyromegaly. CHEST: Clear bilaterally. HEART: S1 and S2. No S3 or S4, no murmur. ABDOMEN: Soft. Bowel sounds present. No tenderness. No hepatosplenomegaly. He did have right nephrostomy tube. IMPRESSION: Chills, leukocytosis in a patient who is having a problem with the nephrostomy tube status post exchange. I agree with blood cultures, urine culture. Will put him on meropenem. I agree with supportive care. Will follow with you. Recheck CBC, recheck chem panel. Further recommendations to follow depending on the cultures. Job#: [id number] EV
[2018-05-18] MEDS: CEFTRIAXONE SOD 1 GM VIAL IV SCH (17:04)
[2018-05-18 20:00] VITALS: BP 179/77
[2018-05-18] MEDS: TRAZODONE HCL 50 MG TAB PO SCH (21:25)
[2018-05-19] VITALS (9 sets, daily range): BP systolic 149–169; BP diastolic 68–97
[2018-05-19] MEDS: LEVOTHYROXINE SODIUM 112 MCG TAB PO SCH (06:09)
[2018-05-19] MEDS: METOPROLOL TARTRATE 50 MG TAB PO SCH ×2 (09:28→21:00)
[2018-05-19] MEDS: FAMOTIDINE 20 MG/2 ML VIAL IV SCH ×2 (09:28→22:00)
[2018-05-19] MEDS: SODIUM CHLORIDE 0.9% 1000ML 1,000 ML IV SCH (09:28)
[2018-05-19] MEDS: AMLODIPINE BESYLATE 5 MG TAB PO SCH (09:28)
[2018-05-19] MEDS: BALSAM PERU/CASTOR OIL 60 GM OINT...G. TP SCH (09:28)
[2018-05-19] MEDS: FLUCONAZOLE 100 MG TAB PO SCH (09:28)
[2018-05-19] MEDS: CEFTRIAXONE SOD 1 GM VIAL IV SCH (16:06)
[2018-05-19] MEDS: TRAZODONE HCL 50 MG TAB PO SCH (22:00)
[2018-05-20] VITALS: BP 174/89
[2018-05-20 04:20] VITALS: BP 185/108
[2018-05-20] MEDS: LEVOTHYROXINE SODIUM 112 MCG TAB PO SCH (05:06)
[2018-05-20] MEDS: CLONIDINE HCL 0.1 MG TAB PO PRN (05:10)
[2018-05-20 07:30] VITALS: BP 151/82
[2018-05-20 07:36] VITALS: BP 151/82
[2018-05-20] MEDS: BALSAM PERU/CASTOR OIL 60 GM OINT...G. TP SCH (09:41)
[2018-05-20] MEDS: METOPROLOL TARTRATE 50 MG TAB PO SCH (09:41)
[2018-05-20] MEDS: AMLODIPINE BESYLATE 5 MG TAB PO SCH (09:41)
[2018-05-20] MEDS: FAMOTIDINE 20 MG/2 ML VIAL IV SCH (09:41)
[2018-05-20] MEDS: FLUCONAZOLE 100 MG TAB PO SCH (09:41)
[2018-05-20 11:42] VITALS: BP 145/84
--- NOTE | 2018-05-20 11:44 | Diagnostic Imaging Report ---
Exam: Right percutaneous nephrostomy catheter injection, ureteral angioplasty and nephroureteral stent placement 05/15/2018. Indication: Hydronephrosis; status post bladder and prostate removal with an ileal conduit. Patient has an indwelling nephrostomy catheter. He was recently admitted with urosepsis. Medication: Patient received a total of 2 mg of Versed and 50 mcg of Fentanyl during the procedure. He was continuously monitored during and following the procedure. Description: The previously placed nephrostomy catheter was injected with contrast material. Urine is noted to be purulent. Contrast outlines the renal pelvis and proximal ureter. There is complete obstruction of the mid to distal ureter. Local anesthesia with 1% Xylocaine was administered. The ureteral obstruction was able to be traversed with a combination of several hydrophilic guidewires and a 5 Faroese Kumpe catheter. The Kumpe catheter was then placed into the ileal loop. Contrast was injected. A 0.035 " Amplatz superstiff wire was then placed into the ileal conduit through the Kumpe catheter. A 5 mm x 100 mm angioplasty balloon was then placed over the stiff wire. Angioplasty was accomplished with 2 separate dilatations to 14 betty. Vascular sheath was then placed over the wire after removal of the balloon catheter. Contrast was injected showing very poor result of the angioplasty. An 8.5 Faroese 22 cm long nephroureteral stent was then placed over the wire. Patient tolerated the procedure well. Fluoroscopy time: 7.5 minutes Dose area product: 4682.8 cGycm2 Impression: 1. Grossly purulent urine from the right nephrostomy catheter. 2. Mid-distal ureteral obstruction. 3. Ureteroplasty accomplished with a 5 mm balloon. 4. 8.5 Faroese nephroureteral stent placed and opened to external drainage. Signed by: Dr. Harris An DO on 05/15/2018 2:53 PM
[2018-05-20] MEDS: SODIUM CHLORIDE 0.9% 1000ML 1,000 ML IV SCH (13:00)
[2018-05-20 16:09] VITALS: BP 109/66
== END 2018-05-20 17:35 | DRG 698 ==
LOC: ER 19:48 → ERHOLD 05-14 00:32 → MED/SURG3 05-14 01:16
PROVIDERS: ADMIT Internal Medicine; ATTEND Internal Medicine
PROC: 0TP5X0Z Removal of Drainage Device from Kidney, External Approach (ICD-10-PCS; principal; 2018-05-15)
PROC: 0T9030Z Drainage of Right Kidney with Drainage Device, Percutaneous Approach (ICD-10-PCS; 2018-05-15)
PROC: BT161ZZ Fluoroscopy of Right Ureter using Low Osmolar Contrast (ICD-10-PCS; 2018-05-15)
PROC: 0T764DZ Dilation of Right Ureter with Intraluminal Device, Percutaneous Endoscopic Approach (ICD-10-PCS; 2018-05-15)
DX: T83.512A Infection and inflammatory reaction due to nephrostomy catheter, initial encounter (principal); A41.9 Sepsis, unspecified organism; R65.20 Severe sepsis without septic shock; N17.9 Acute kidney failure, unspecified; N13.4 Hydroureter; B37.49 Other urogenital candidiasis; N99.522 Malfunction of incontinent external stoma of urinary tract; I12.9 Hypertensive chronic kidney disease with stage 1 through stage 4 chronic kidney disease, or unspecified chronic kidney disease; E11.22 Type 2 diabetes mellitus with diabetic chronic kidney disease; N18.3 Chronic kidney disease, stage 3 (moderate); Z79.4 Long term (current) use of insulin; I48.2 Chronic atrial fibrillation; Z79.01 Long term (current) use of anticoagulants; Z87.440 Personal history of urinary (tract) infections; D64.9 Anemia, unspecified; B96.20 Unspecified Escherichia coli [E. coli] as the cause of diseases classified elsewhere; B95.2 Enterococcus as the cause of diseases classified elsewhere; Z96.0 Presence of urogenital implants; Z85.51 Personal history of malignant neoplasm of bladder; E03.9 Hypothyroidism, unspecified
CPT/HCPCS: 36415; 50435; 50693; 71045; 74176; 74425; 74470; 77001; 80048; 80053; 80061; 81001; 82550; 82553; 82948; 83605; 83735; 84484; 85025; 85610; 85730; 87086; 87186; 93005; 93971; 96361; 97139; 99284; C1725; C1766; J0696; J2001; J2185; J2250; J3370; J7030; J7040

== ENCOUNTER 2018-10-07 09:00 | Inpatient (IN) | payer MEDICARE ==
[~2018-10-07] VITALS: Ht 170.2 cm; Wt 94.2 kg
[2018-10-07 11:03] LABS: BASOPHILS # (AUTO) 0.1 (0.0-0.1); BASOPHILS % 0.5 % (0.0-1.0); EOSINOPHILS # (AUTO) 0.3 (0.0-0.4); HEMATOCRIT 44.7 % (38.2-49.6); HEMOGLOBIN 14.3 g/dL (14.0-18.0); LYMPHOCYTES # (AUTO) 1.5 (1.0-3.2); LYMPHOCYTES % 8.8 % (18.0-39.1); MEAN CORPUSCULAR HEMOGLOBIN 31.2 pg (28-32); MEAN CORPUSCULAR VOLUME 97.4 fL (81-99); NEUTROPHILS # (AUTO) 13.8 (2.1-6.9); NEUTROPHILS % 80.9 % (38.7-80.0); PLATELET COUNT 198 x10e3/uL (140-360); RED BLOOD COUNT 4.59 x10e6/uL (4.3-5.7); RED CELL DISTRIBUTION WIDTH 14.4 % (11.7-14.4)
[2018-10-07 11:12] LABS: INR 1.07; PARTIAL THROMBOPLASTIN TIME 26.4 seconds (23.8-35.5); PROTHROMBIN TIME 14.9 seconds (11.9-14.5)
[2018-10-07 11:19] LABS: CALCIUM 9.1 mg/dL (8.4-10.2); CREATININE, SERUM 1.34 mg/dL (0.72-1.25)
[2018-10-07] MEDS ORDERED: MEROPENEM 1GRAM 1 GM in SODIUM CHLORIDE 0.9% 100 ML 100 ML IV STA (12:05)
--- NOTE | 2018-10-07 13:18 | NUR ---
undressed nephrostomy tube site, tubing is dislocated and coiled on exterior skin with urine leaking onto skin. cleaned site, notified ER MD and after ER MD observed site, redressed with 4x4's and tape. unable to collect urine sample at this time to due dislodged/malfunctioning nephrostomy tube.
--- NOTE | 2018-10-07 14:43 | NUR ---
entered room and began discussing with patient Dr. Maciel's request to replaced urostomy bag with new one to collect a urine sample. patient declined to have urostomy bag replaced. advised patient that Dr. Maciel was the MD ordering the nursing staff to change it and the reason but patient maintained that he knew Dr. maciel was ordering it but was still declining to have urostomy bag and wafer replaced. notified er MD of patient's stance. urine collected from current urostomy bag and sent to lab.
[2018-10-07] MEDS ORDERED: ONDANSETRON HCL INJ 2MG/ML 2ML 2 MG/ML VIAL IV PRN (14:45)
[2018-10-07] MEDS: SODIUM CHLORIDE 0.9% 1000ML 1,000 ML IV SCH ×2 (15:07→20:29)
[2018-10-07 15:24] LABS: CLARITY,URINE HAZY (CLEAR); COLOR,URINE YELLOW (YELLOW); LEUKOCYTE ESTERASE ,URINE 2+ (NEGATIVE); NITRITE,URINE POSITIVE (NEGATIVE); PROTEIN,URINE DIPSTICK 1+ (NEGATIVE)
[2018-10-07 15:25] LABS: BILIRUBIN,URINE NEGATIVE (NEGATIVE); KETONES,URINE NEGATIVE (NEGATIVE); URINE UROBILINOGEN 0.2 mg/dL (0.2 - 1)
[2018-10-07 15:31] LABS: WBC,URINE (MAN) >50 /HPF (0-5)
[2018-10-07 15:32] LABS: AMORPHOUS SEDIMENT,URINE FEW (FEW); BACTERIA,URINE MANY /HPF; EPITHELIAL CELLS,URINE MODERATE /LPF
--- NOTE | 2018-10-07 16:05 | Diagnostic Imaging Report ---
ADDENDUM #1 ADDENDUM: After notification by Urology team, note is made that the right percutaneous nephroureteral catheter has partially retracted compared to the prior study on 05/15/18. The proximal pigtail is external to the skin, while the distal tip continues to be in the ileal conduit. Plan for subsequent IR guided fluoroscopic exchange. Signed by: Dr. Deborah Page MD on 10/08/2018 6:53 PM ORIGINAL REPORT EXAM: CT ABDOMEN AND PELVIS without IV CONTRAST INDICATION: Rule out hydronephrosis right kidney. COMPARISON: CT Abdomen/Pelvis 05/13/18. TECHNIQUE: The abdomen and pelvis were scanned using a multidetector helical scanner. Coronal and sagittal reformations were obtained. Dose modulation, iterative reconstruction, and/or weight based adjustment of the mA/kV was utilized to reduce the radiation dose to as low as reasonably achievable. Renal stone protocol performed. RADIATION DOSE: Total DLP: 820.3 mGy*cm CTDIvol has been reviewed. It is below the limits set by the Radiation Protocol Committee (RPC). FINDINGS: LOWER THORAX: Extensive coronary atherosclerosis. Partially seen pacemaker leads. Mitral annular and aortic valve calcifications. Trace right pleural effusion. Patchy opacities in the lower lobes, likely atelectasis. LIVER: No evidence of mass lesion or biliary ductal dilatation. The gallbladder appears unremarkable. Unchanged hepatic morphology. SPLEEN: No evidence of splenomegaly. Calcified splenic granuloma. PANCREAS: No masses ADRENALS: No nodules RIGHT KIDNEY: Right-sided percutaneous nephroureteral catheter is noted. No evidence of residual hydronephrosis or hydroureter. Stable bilateral simple renal cysts. The left kidney is otherwise unremarkable. GI TRACT: No wall thickening or obstruction. Mild fatty infiltration within the [place] of small bowel loops within a right-sided ventral hernia, which could represent sequela of prior inflammatory changes. VESSELS: Extensive atherosclerotic changes of the abdominal aorta and branch vessels. Ectatic infrarenal abdominal aorta just proximal to the bifurcation measuring up to 2.7 cm. PERITONEUM/RETROPERITONEUM: No free air or fluid LYMPH NODES: No lymphadenopathy PELVIS: Status post prostatectomy. Status post cystectomy with ileal conduit and diverting ureterostomy. SOFT TISSUES: Right lower quadrant urostomy with associated parastomal bowel-containing hernia without bowel obstruction. Tiny fat-containing umbilical hernia. BONES: No acute osseous abnormality or suspicious lytic or blastic lesions. IMPRESSION: Right percutaneous nephroureteral catheter in place without evidence of hydronephrosis. Unchanged surgical findings status post cystoprostatectomy with right lower quadrant diverting ureterostomy. Signed by: Dr. Deborah Page MD on 10/07/2018 4:01 PM
--- NOTE | 2018-10-07 17:03 | NUR ---
Patient arrived from ER via stretcher. He is awake and alert was transferred to bed with moderate assistance. is at the bedside. Right urostomy bag intact and right nephrostomy tube with gauze over insertion site. Patient instructed to call for assistance as needed and verbalized understanding. Call austin within reach
[2018-10-07 17:15] VITALS: BP 176/98
[2018-10-07 17:20] VITALS: BP 176/98
[2018-10-07 20:00] VITALS: BP 160/70
[2018-10-07] MEDS: MEROPENEM 1GM 100 ML IV SCH (20:29)
--- NOTE | 2018-10-07 22:20 | NUR ---
Patient unable to safely ambulate to restroom with assistance. Bedside commode used. Patient states trouble passing stools. Will notify attending...
--- NOTE | 2018-10-07 23:59 | NUR ---
Patient noted to have stage 2 pressure ulcer to right gluteus.. rinsed with NS, air dried, and sacral Allevyn applied. Changed to moderate PUP with air mattress and heel protectors in place.
[2018-10-08] VITALS (7 sets, daily range): BP systolic 134–217; BP diastolic 70–96
[2018-10-08] MEDS: SODIUM CHLORIDE 0.9% 1000ML 1,000 ML IV SCH ×3 (02:44→21:40)
[2018-10-08 05:35] LABS: BASOPHILS # (AUTO) 0.1 (0.0-0.1); BASOPHILS % 0.5 % (0.0-1.0); EOSINOPHILS # (AUTO) 0.3 (0.0-0.4); EOSINOPHILS % 2.5 % (0.0-6.0); HEMATOCRIT 37.5 % (38.2-49.6); HEMOGLOBIN 12.2 g/dL (14.0-18.0); LYMPHOCYTES % 8.2 % (18.0-39.1); MEAN CORPUSCULAR HEMOGLOBIN 31.6 pg (28-32); MEAN CORPUSCULAR HGB CONC 32.5 g/dL (31-35); MEAN CORPUSCULAR VOLUME 97.2 fL (81-99); MONOCYTES % 7.7 % (4.4-11.3); NEUTROPHILS # (AUTO) 10.1 (2.1-6.9); NEUTROPHILS % 79.8 % (38.7-80.0); PLATELET COUNT 154 x10e3/uL (140-360); RED BLOOD COUNT 3.86 x10e6/uL (4.3-5.7); RED CELL DISTRIBUTION WIDTH 14.2 % (11.7-14.4)
[2018-10-08 06:01] LABS: ANION GAP 12.1 mmol/L (8-16); CALCIUM 8.1 mg/dL (8.4-10.2); CREATININE, SERUM 1.21 mg/dL (0.72-1.25); POTASSIUM 4.1 mmol/L (3.5-5.1)
--- NOTE | 2018-10-08 07:05 | NUR ---
rounded with hourly shift nurse, patient aware of change. Patient resting in bed with call austin in reach, and bed in lowest position.
[2018-10-08] MEDS: MEROPENEM 1GM 100 ML IV SCH ×2 (08:48→21:40)
[2018-10-08] MEDS: METOPROLOL TARTRATE 50 MG TAB PO SCH ×2 (08:48→17:00)
[2018-10-08] MEDS ORDERED: LEVOTHYROXINE SODIUM 112 MCG TAB PO SCH (09:00)
[2018-10-08] MEDS ORDERED: WARFARIN SOD 2 MG TAB PO SCH (09:00)
--- NOTE | 2018-10-08 09:27 | NUR ---
SOCIAL WORK INITIAL ASSESSMENT Demolitionist to bedside to discuss plan of care with patient/family. CM/SW role and care transitions discussed. Anticipated discharge plan discussed along with duration of care. CM/SW discussed patients right to make decisions in care. CM/SW work hours given. Patient lives: IN OWN HOUSE WITH AND SON Admit/Transfer: VIA ED FROM HOME POA/Emergency contact: SATYA [phone] Current/Previous Home Health: NONE PCP/Follow-up Care: STACEY Current/Previous DME: HAS NURIA Other Services: NONE Employment Status: DISABLED Areas of Concerns: NONE Referral Needs: NONE Education Needs: NONE IMM/HOLLEY given and signed (if applicable): HOLLEY Goal for discharge: RETURN HOME INDEPENDENTLY CM/SW left business card at the bedside with contact information. Name and number was also written on the patients whiteboard. Patient verbalized understanding of discussion. CM will follow-up with ongoing discharge and transition of care needs.
--- NOTE | 2018-10-08 15:29 | NUR ---
WC Screening - Pressure Ulcer Prevention - Documented Stage II PU - BS 17 - Alternating Air Mattress in Place - Moderate PUP Protocol in place. - Patient transferring [place] [facility] [place] at time of visit - Spouse at bedside states patient has had recurrent open sores to his buttocks from transfers to commode. - Sacro-gluteal area present & removed for inspection. Noted 100% epithelialization. - No open/ draining wounds noted to sacrogluteal area. - Noted Left Elbow Skin tear (1x1x<0.1 cm)- appears to be dry and stable. RECOMMENDATION: 1. Continue Moderate PUP Protocol 2. Left Elbow- Skin Tear - Apply single layer Xeroform gauze and Cover with 4x4 gauze Every Other Day. 3. Right Gluteal - Healed Stage II P.U. - Continue Allevyn Foam Sacrum Dressing Daily. Addendum: 10/08/18 at 1538 by Adalid Hull RN Amended: Links added.
[2018-10-08] MEDS: WARFARIN SOD 2 MG TAB PO SCH (17:00)
[2018-10-08] MEDS: HYDRALAZINE HCL 20 MG/ML VIAL IV PRN (17:45)
--- NOTE | 2018-10-08 18:30 | NUR ---
patient leaving floor for procedure on stretcher, alert and oriented.
[2018-10-08] MEDS ORDERED: MIDAZOLAM HCL 2 MG/2 ML VIAL ONE (18:49)
[2018-10-08] MEDS ORDERED: LIDOCAINE HCL 1% LOCAL INJ 20 ML VIAL ONE (18:50)
[2018-10-08] MEDS ORDERED: FENTANYL CITRATE/PF 100MCG/2 ML INJ ONE (18:50)
[2018-10-08] MEDS ORDERED: IOPAMIDOL 300MG/ML 50ML INFUS..BTL IV ONE (18:50)
[2018-10-08] MEDS ORDERED: SODIUM CHLORIDE 0.9% 500ML 500 ML ONE (18:51)
--- NOTE | 2018-10-08 19:00 | NUR ---
report given to awake overnight monitor nurse, patient remain in procedure
[2018-10-08] MEDS: TRAZODONE HCL 50 MG TAB PO SCH (21:40)
[2018-10-09] VITALS (8 sets, daily range): BP systolic 120–173; BP diastolic 67–88
[2018-10-09] MEDS: HYDRALAZINE HCL 20 MG/ML VIAL IV PRN (04:40)
[2018-10-09] MEDS: LEVOTHYROXINE SODIUM 112 MCG TAB PO SCH (05:05)
[2018-10-09] MEDS: TRAMADOL HCL 50 MG TAB PO PRN (05:05)
--- NOTE | 2018-10-09 05:18 | NUR ---
The Patients BP was 173/88 with HR of 112. 10mg of PRN Hydralazine IV were administered. A few minutes later the patient complained of chest pain 8/10 described it as pressure on his chest. Senior Quantity Surveyor had him laying flat to get labs. I gave the patient his Ultram 50mg, and elevated the HOB at 0505. 0515, I re-took his blood pressure and it was 135/94 with HR of 107 and sO2 of 98% at room air. I advice the patient to use the call light to call me if symptoms get worse or do not improve.
[2018-10-09 05:29] LABS: BASOPHILS # (AUTO) 0.1 (0.0-0.1); BASOPHILS % 0.4 % (0.0-1.0); EOSINOPHILS # (AUTO) 0.3 (0.0-0.4); EOSINOPHILS % 2.2 % (0.0-6.0); HEMATOCRIT 40.7 % (38.2-49.6); HEMOGLOBIN 13.3 g/dL (14.0-18.0); LYMPHOCYTES # (AUTO) 1.5 (1.0-3.2); LYMPHOCYTES % 10.9 % (18.0-39.1); MEAN CORPUSCULAR HEMOGLOBIN 31.4 pg (28-32); MEAN CORPUSCULAR HGB CONC 32.7 g/dL (31-35); MEAN CORPUSCULAR VOLUME 96.2 fL (81-99); MONOCYTES % 7.7 % (4.4-11.3); NEUTROPHILS # (AUTO) 10.4 (2.1-6.9); NEUTROPHILS % 77.6 % (38.7-80.0); PLATELET COUNT 166 x10e3/uL (140-360); RED BLOOD COUNT 4.23 x10e6/uL (4.3-5.7); RED CELL DISTRIBUTION WIDTH 14.4 % (11.7-14.4)
--- NOTE | 2018-10-09 05:33 | NUR ---
The patient called again at 0528 stating he still continuous to feel pressure on his chest and it's starting to worry. I called Respiratory at 0330 and requested a STAT ECG.
[2018-10-09 05:51] LABS: BLOOD UREA NITROGEN 15 mg/dL (7-26); BUN/CREATININE RATIO 15 (6-25); CALCIUM 8.7 mg/dL (8.4-10.2); CARBON DIOXIDE 22 mmol/L (22-29); CHLORIDE 108 mmol/L (98-107); CREATININE, SERUM 1.02 mg/dL (0.72-1.25); EST GLOMERULAR FILTRATION RATE > 60 ML/MIN (60-); GLUCOSE 98 mg/dL (74-118); SODIUM 140 mmol/L (136-145)
--- NOTE | 2018-10-09 05:52 | NUR ---
Teja Guevara was notified that the patient had a STAT ECG do to unresolved chest pain after administering hydralazine 10mg IV and Ultram 50mg PO. The ECG revealed that the patient had Atrial fibrillation with rapid ventricular response and ST and T wave abnormality. HE order cardiac biomarkers x3 , tele monitoring, metoprolol 25mg x1. and also a consult with DR Long as soon as possible.
[2018-10-09] MEDS ORDERED: ASPIRIN 81 MG CHEW TAB PO ONE (06:00)
[2018-10-09] MEDS ORDERED: METOPROLOL TARTRATE 25 MG TAB PO ONE (06:00)
--- NOTE | 2018-10-09 06:02 | NUR ---
spoke to dr martinez in regards to new consult. stated would be in to see pt. primary nurse made aware.
[2018-10-09] MEDS ORDERED: NITROGLYCERIN 0.4 MG SUBL SL ONE (06:15)
--- NOTE | 2018-10-09 06:40 | NUR ---
rounded with overnight houseperson nurse, patient resting in bed. call austin within reach and bed in lowest position
[2018-10-09] MEDS: SODIUM CHLORIDE 0.9% 1000ML 1,000 ML IV SCH ×3 (06:50→23:00)
--- NOTE | 2018-10-09 06:58 | Progress Note ---
DATE: Patient is here for a nephrostomy tube and also for a urinary tract infection. Patient this morning at 4 o'clock had some chest pain described as 8/10 radiating to the back. The patient did get diaphoretic. Cardiac enzymes have been ordered. Aspirin has been given. The patient also has pain and now started on O2 protocol. The patient has a history of IN and history of pacemaker. Currently, chest pain is continuous. No nausea, vomiting or diarrhea. Positive for some diaphoresis. No other symptoms noted by the patient. The patient's blood pressure was in the high range, and was given IV hydralazine and also started on metoprolol 25 mg. EKG shows AFib with RVR. Cardiology consult has been done. PHYSICAL EXAMINATION VITAL SIGNS: Temperature is 96.5, pulse of 107, respirations of 20, blood pressure is 173/88, and was given hydralazine. Currently, it is 135/94. Pulse oximetry 99% on room air. HEENT: Normocephalic and atraumatic. Pupils reactive to light and accommodation. CV: Irregularly irregular. Tachycardic. ABDOMEN: Nontender and nondistended. EXTREMITIES: No clubbing. No cyanosis. Positive for trace edema. LABORATORY VALUES: Today, white count is 13,000, hemoglobin of 13.3, hematocrit of 40.7, and platelet count is 166,000. Chemistry: Troponins are pending. Otherwise, sodium of 140, potassium of 4, BUN of 15, creatinine of 1.02. Coags are normal at 1.7 INR. MICROBIOLOGY: No growth on blood cultures. Urine cultures show enterococcus. Identification to follow and susceptibilities to follow. IMAGING STUDIES: None today. ASSESSMENT 1. The patient with a urinary tract infection: Status post nephrostomy, growth of enterococcus. 2. History of coronary artery disease. 3. Atrial fibrillation with rapid ventricular response, new onset. 4. Hypothyroidism. 5. History of pacemaker. PLAN 1. Give the patient oxygen, aspirin, metoprolol for his atrial fibrillation. Continue with anticoagulation with warfarin. INRs to be done daily. The patient will get cardiac enzymes done today. 2. Nephrostomy with urinary tract infection. Continue the patient on meropenem. Sensitivity pending. 3. Hypothyroidism. Will go ahead and check his TSH. 4. Hypertension. Continue with CV medications. Further recommendations per clinical course. Will wait for troponins to be back. Continue with oxygen and aspirin therapy. If needed, nitroglycerin will be added. Job#: [id number] RI
[2018-10-09 07:03] LABS: CREATINE KINASE MB 3.6 ng/mL (0-5.0)
[2018-10-09] MEDS: METOPROLOL TARTRATE 50 MG TAB PO SCH ×2 (09:35→17:15)
[2018-10-09] MEDS: MEROPENEM 1GM 100 ML IV SCH ×2 (09:35→20:13)
--- NOTE | 2018-10-09 10:36 | NUR ---
EDUCATED ABOUT IMM, SIGNED, FILED IN CHART, WITH COPY LEFT WITH FAMILY AT BEDSIDE.
--- NOTE | 2018-10-09 13:53 | Consultation ---
DATE OF CONSULTATION: October 09, 2018 CARDIOLOGY CONSULTATION REASON FOR CONSULTATION: Chest pain. CHIEF COMPLAINT: Chest pain. HISTORY OF PRESENT ILLNESS: Patient is an 88-year-old man, history of PR in 2008 status post pacemaker placement, denies any previous history of coronary angiography, stents or bypass surgery. He was here for a nephrostomy tube exchange, which was performed by Interventional radiology yesterday. At night he complained about pressure in his chest that lasted several hours, associated with diaphoresis and shortness of breath. He reports having had this pressure sensation previously, but it does not happen too frequently, he says maybe once a month. Although patient is 88 years old, he lives at home with his and he is able to do his ADLs, walks with a walker and has a reasonable quality of life. Denies any obvious bleeding issues. REVIEW OF SYSTEMS: As above, otherwise negative. PAST MEDICAL HISTORY 1. Status post pacemaker placement. 2. Myocardial infarction in 2008 per patient. 3. Hypertension. 4. Hyperlipidemia. SOCIAL HISTORY: Patient does not smoke, drink or abuse drugs. FAMILY HISTORY: Noncontributory. OUTPATIENT MEDICATIONS: Reviewed. VITAL SIGNS: Temperature 98.3, pulse 88, respiratory rate 21, blood pressure 135/70, satting 97% on room air. LABORATORY DATA: Reviewed. Notable for elevated white blood cell count of 13.5 which is improved from 17 previously. Creatinine is normal at 1.0. Urinalysis is positive for a UTI with the urine culture showing enterococcus. IMAGING DATA: Reviewed. CT of abdomen and pelvis shows a right percutaneous nephroureteral catheter in place without evidence of hydronephrosis, unchanged surgical findings status post cystoprostatectomy of right lower quadrant with diverting urostomy. ECG reviewed, shows episode of atrial fibrillation with RVR. ASSESSMENT 1. Atrial fibrillation with rapid ventricular response. 2. Chest pain. 3. History of coronary artery disease status post myocardial infarction in 2008. 4. History of pacemaker placement. PLAN: Will interrogate the pacemaker to evaluate burden of AFib at home, currently rate-controlled on metoprolol 50 mg b.i.d. Will up-titrate as necessary. Resume warfarin and acceptable from Interventional Radiology standpoint. Cardiac enzymes negative x1 so far. Please complete a second set. Thank you for this consult. Will continue to follow. Job#: [id number] EV
--- NOTE | 2018-10-09 14:41 | NUR ---
reported gram positive rods in blood to Dr. Lezama, per MD patient is on Merrem and will remain on it until further notice.
[2018-10-09] MEDS: WARFARIN SOD 2 MG TAB PO SCH (17:15)
--- NOTE | 2018-10-09 19:00 | NUR ---
rounded with pre fabricator nurse, patient aware of change. Patient in no distress and call [place] within reach.
--- NOTE | 2018-10-09 19:05 | NUR ---
REPORT RECEIVED FROM OFF GOING NURSE, PT RESTING IN BED ALERT AND ORIENTED, NO DISTRESS NOTED, DENIES NEEDS, IV INFUSING PER ORDER, TELEMETRY NOTED, BED LOCKED AND LOW, CALL LIGHT IN REACH, INSTRUCTED TO CALL WITH NEEDS
[2018-10-09] MEDS: TRAZODONE HCL 50 MG TAB PO SCH (20:13)
--- NOTE | 2018-10-09 21:12 | NUR ---
PT ALERT AND ORIENTED, TRANSFERRED IN BED TO ROOM 285, REPORT GIVEN TO ON COMING NURSE, PT STATES THAT HE WILL INFORM OF ROOM CHANGE, UROSTOMY IN PLACE AND PATENT, NEPHROSTOMY IN PLACE AND PATENT, DENIES NEEDS, CALL LIGHT IN REACH, IN NEW ROOM , INSTRUCTED TO CALL WITH NEEDS
--- NOTE | 2018-10-09 21:15 | NUR ---
patient recieved to room 285 via bed from obs. vss. no c/o pain noted. ivf continue to infuse without to right ac. patient instructed to call for assistance when needed.
[2018-10-10] VITALS (9 sets, daily range): BP systolic 119–195; BP diastolic 60–99
--- NOTE | 2018-10-10 01:10 | NUR ---
iv to right ac leaking. iv d/c'd and clean, dry dressing applied to site. new iv #22 placrd to the left wrist x 1 stick.
[2018-10-10] MEDS: LEVOTHYROXINE SODIUM 112 MCG TAB PO SCH (05:12)
--- NOTE | 2018-10-10 07:22 | Progress Note ---
DATE: Patient is here for a nephrostomy tube, status post nephrostomy insertion, history of bladder cancer. The patient has the urostomy tube draining well. Nephrostomy is draining well. The patient did complain of chest pain. Troponins have been trended to be negative. The patient has a history of atrial fibrillation and also coronary artery disease. Doing well at this time. No complaints. OBJECTIVE VITAL SIGNS: Temperature is 97.6, pulse of 94, respirations of 20, blood pressure is 161/90. HEENT: Normocephalic and atraumatic. Pupils are reactive to light and accommodation. CV: S1 and S2 are regular. ABDOMEN: Nontender and nondistended. Urostomy and nephrostomy tube in place. EXTREMITIES: No clubbing. No cyanosis. Positive for edema especially in the right upper extremity. LABORATORY VALUES: Today's white count is 13,000. Chemistry: CK, CK-MB and troponins have been trended to be negative. GFR is about 60%. MICROBIOLOGY: Cultures show Enterococcus faecalis sensitive to ampicillin and vancomycin. Sensitive to penicillin too. The patient currently is on Merrem at this time. Will change the patient to Levaquin 500 mg daily and discontinue the Merrem at this time. Continue monitoring the patient. The patient needs anticoagulation for AFib. Will continue warfarin. Continue monitoring the PT and INR on a daily basis. For his other comorbidities including hypothyroidism and hypertension, continue on CV and thyroid medications. Further recommendations per clinical course. Will continue monitoring the patient along with the consultants. Job#: [id number] JULIA
[2018-10-10] MEDS: TRAMADOL HCL 50 MG TAB PO PRN (07:40)
--- NOTE | 2018-10-10 07:40 | NUR ---
PATIENT IN BED RESTING WITH HEAD OF BED ELEVATED, NO RESPIRATORY DISTRESS OBSERVED. C/O GENERALIZED PAIN, PAIN MEDICATION ADMINISTERED ORDERED. RIGHT UROSTOMY AND NEPHROSTOMY IN PLACE. REDNESS TO BOTH GREAT TOES. BED IN LOWER POSITION, CALL LIGHT AT REACH. FAMILY AT BED SIDE. WILL CLOSELY MONITOR.
--- NOTE | 2018-10-10 07:44 | Diagnostic Imaging Report ---
Exam: Right ureteral angioplasty, nephroureteral stent exchange with fluoroscopic guidance Indication: Hydronephrosis; status post bladder and prostate removal with an ileal conduit. Patient has an indwelling PCNU catheter which has partially retracted with the proximal pigtail outside the skin. He was admitted with pyelonephritis. Medication: IV Fentanyl and Versed per nursing administration records. He was continuously monitored during and following the procedure. RADIATION DOSE: Fluoroscopy time: 3.4 minutes Dose area product: 791.5 cGycm2 TECHNIQUE/FINDINGS: The previously placed right percutaneous nephroureteral stent was noted to be partially retracted. Local anesthesia with 1% Xylocaine was administered. An .035'' Amplatz wire was inserted into the catheter and advanced into the ileal conduit. The existing catheter was removed. Subsequently, a 8 Fr x 20 cm vascular sheath was placed into the renal pelvis. Fluoroscopic contrast injection demonstrating mid and distal ureteral obstruction. A 5 mm x 100 mm angioplasty balloon was placed over the stiff wire. Angioplasty was performed. The catheter was removed and repeat contrast injection demonstrated patency of the ureter in the mid portion but persistent obstructed distal portion. The sheath was removed. Subsequently, an 8.5 [place] 22 cm long nephroureteral stent was then placed over the wire and the wire was removed. Contrast injection demonstrated satisfactory position. The catheter was secured with Ethilon sutures and sterile bandage was placed. Patient tolerated the procedure well. Impression: Mid-distal ureteral obstruction. Ureteroplasty accomplished with a 5 mm balloon with improved patency in the mid portion but persistent obstruction in the distal portion. Partially retracted existing nephroureteral stent. Successful fluoroscopic guided exchange of 8.5 [place] nephroureteral stent. Signed by: Dr. Deborah Page MD on 10/10/2018 7:40 AM
[2018-10-10] MEDS: METOPROLOL TARTRATE 50 MG TAB PO SCH ×2 (09:05→17:43)
[2018-10-10] MEDS: MEROPENEM 1GM 100 ML IV SCH ×2 (09:05→21:59)
[2018-10-10] MEDS: SODIUM CHLORIDE 0.9% 1000ML 1,000 ML IV SCH (10:39)
--- NOTE | 2018-10-10 11:07 | NUR ---
PATIENT REFUSED TO BE TURNED STATING "IF I TURN, MY UROSTOMY WILL BE DISPLACED". PATIENT'S AT BED SIDE. BED IN LOWER POSITION, CALL LIGHT AT REACH.
--- NOTE | 2018-10-10 15:29 | NUR ---
PATIENT AMBULATED IN ROOM WITH PHYSICAL THERAPY. SITTING ON RECLINING CHAIR AT THIS TIME. CALL LIGHT AT REACH, AT BED SIDE.
--- NOTE | 2018-10-10 16:15 | Progress Note ---
DATE: October 10, 2018 CARDIOLOGY PROGRESS NOTE SUBJECTIVE: No major events overnight. Feels better today. No more chest pain. OBJECTIVE VITALS: Temperature 96.1, pulse 87, respiratory rate 18, blood pressure 128/83, satting 95% on room air. GENERAL: Elderly man in no acute distress. CARDIOVASCULAR: Irregular rate and rhythm. No murmurs, rubs or gallops. LUNGS: Clear to auscultation. ABDOMEN: Soft, nontender and nondistended. NEURO AND PSYCH: Alert and oriented to person, place and time. Normal affect. INPATIENT MEDICATIONS: Reviewed. LABORATORY DATA: Reviewed. Troponins negative. IMAGING DATA: Reviewed. TELEMETRY DATA: Reviewed. Had some AFib with RVR episodes, much improved after rate controlled atrial fibrillation after receiving his metoprolol. ASSESSMENT AND PLAN 1. Atrial fibrillation with rapid ventricular response. 2. Chest pain. 3. History of coronary disease: Status post myocardial infarction in 2007. 4. History of pacemaker placement. PLAN: AFib is rate controlled with home metoprolol dose of 50 mg b.i.d. Resume warfarin. Follow PT and INR. Cardiac enzymes negative. Chest pain has not recurred. I recommend controlling blood pressure and heart rate. Will improve any episodes of chest pain. Thank you for this consult. Will continue to follow. Job#: [id number] JULIA
[2018-10-10] MEDS ORDERED: PENICILLIN V P500 MG PO (16:31)
[2018-10-10 16:33] LABS: INR 1.13; PROTHROMBIN TIME 15.5 seconds (11.9-14.5)
--- NOTE | 2018-10-10 17:00 | NUR ---
PATIENT HAD A DISCHARGE ORDER. AFTER PREPARING DISCHARGE PAPERS, PATIENT AND REFUSED THE DISCHARGE STATING THAT PATIENT IS STILL SWELLING TO LOWER EXTREMITIES. MD NOTIFIED, ORDER RECEIVED TO CANCEL THE DISCHARGE ORDER. CALL PLACED TO [employer]AW [employer]AT MACHINE OPERATOR FOR DIURETIC ORDER, MESSAGE LEFT. AWAITING CALL BACK.
[2018-10-10] MEDS: WARFARIN SOD 2 MG TAB PO SCH (17:42)
--- NOTE | 2018-10-10 18:54 | NUR ---
CALL BACK RECEIVED FROM DR MARI, NOTIFIED OF PATIENT SWELLING, NEW ORDERS RECEIVED.
[2018-10-10] MEDS ORDERED: FUROSEMIDE INJ 10 MG/ML 4 ML VIAL IV ONE (19:15)
--- NOTE | 2018-10-10 19:55 | NUR ---
PATIENT ALERT, ORIENTED TO SELF AND BIRTHDAY, SOME CONFUSION NOTED WHILE SPEAKING WITH THE PATIENT. UROSTOMY AND NEPHROSTOMY INTACT, DRAINING CLEAR YELLOW COLOR URINE. 2+ PITTING EDEMA TO THE LEGS, GENERALIZED EDEMA TO THE RIGHT ARM. WITH GENERALIZED BRUISES TO THE ARMS. PATIENT DENIES PAIN, BED ALARM ON, CALL LIGHT WITHIN EASY REACH.
--- NOTE | 2018-10-10 21:51 | NUR ---
PATIENT RESTING COMFORTABLY IN BED WITHOUT DISTRESS, HE DENIES PAIN. BLOOD PRESSURE REASSESSED WITH READING OF 119/60, HEART RATE 113.
[2018-10-10] MEDS: TRAZODONE HCL 50 MG TAB PO SCH (21:59)
[2018-10-11] VITALS (8 sets, daily range): BP systolic 100–170; BP diastolic 53–88
--- NOTE | 2018-10-11 00:32 | NUR ---
ASSISTED PATIENT TO REPOSITION IN BED, HE DENIES PAIN. CLEAR YELLOW COLOR URINE EMPTY FROM NEPHROSTOMY, LOTS OF SEDIMENTS OBSERVED IN THE URINE.
--- NOTE | 2018-10-11 04:14 | NUR ---
PATIENT IS ASLEEP, HE'S EASY TO AROUSE. NO RESPIRATORY DISTRESS OBSERVED, HE DENIES PAIN. UROSTOMY EMPTIED, BED ALARM ON AND CALL LIGHT WITHIN EASY REACH.
[2018-10-11 05:38] LABS: BASOPHILS # (AUTO) 0.1 (0.0-0.1); BASOPHILS % 0.5 % (0.0-1.0); EOSINOPHILS # (AUTO) 0.5 (0.0-0.4); EOSINOPHILS % 4.3 % (0.0-6.0); HEMATOCRIT 37.5 % (38.2-49.6); HEMOGLOBIN 12.4 g/dL (14.0-18.0); LYMPHOCYTES % 9.3 % (18.0-39.1); MEAN CORPUSCULAR HEMOGLOBIN 31.5 pg (28-32); MEAN CORPUSCULAR HGB CONC 33.1 g/dL (31-35); MEAN CORPUSCULAR VOLUME 95.2 fL (81-99); MONOCYTES # (AUTO) 0.9 (0.2-0.8); MONOCYTES % 7.9 % (4.4-11.3); NEUTROPHILS # (AUTO) 8.5 (2.1-6.9); NEUTROPHILS % 76.8 % (38.7-80.0); PLATELET COUNT 144 x10e3/uL (140-360); RED BLOOD COUNT 3.94 x10e6/uL (4.3-5.7); RED CELL DISTRIBUTION WIDTH 14.4 % (11.7-14.4)
[2018-10-11 06:01] LABS: ANION GAP 12.7 mmol/L (8-16); BLOOD UREA NITROGEN 16 mg/dL (7-26); BUN/CREATININE RATIO 14 (6-25); CALCIUM 8.5 mg/dL (8.4-10.2); CARBON DIOXIDE 24 mmol/L (22-29); CHLORIDE 107 mmol/L (98-107); CREATININE, SERUM 1.13 mg/dL (0.72-1.25); EST GLOMERULAR FILTRATION RATE > 60 ML/MIN (60-); GLUCOSE 94 mg/dL (74-118); POTASSIUM 3.7 mmol/L (3.5-5.1); SODIUM 140 mmol/L (136-145)
[2018-10-11] MEDS: LEVOTHYROXINE SODIUM 112 MCG TAB PO SCH (06:21)
--- NOTE | 2018-10-11 07:15 | NUR ---
PATIENT IN BED RESTING WITH NO RESPIRATORY DISTRESS. DRESSING INTACT TO RIGHT NEPHROSTOMY AND UROSTOMY SITE, BOTH DRAINING CLEAR YELLOW URINE. BED IN LOWER POSITION, CALL LIGHT AT REACH.
--- NOTE | 2018-10-11 08:39 | Progress Note ---
DATE : SUBJECTIVE: This patient is an 88-year-old gentleman status post nephrostomy tube placement by IR. Patient also has an urostomy. Yesterday, the patient was swollen quite a bit, discharge was held in lieu of that. Today, patient is doing better. Swelling is down. OBJECTIVE VITAL SIGNS: Temperature is 98.3 afebrile from the last 48 hours, pulse of 94, blood pressure is 170/86, pulse oximetry is 98%. HEENT: Normocephalic, atraumatic. Pupils react to light and accommodation. CVS: Irregularly irregular. ABDOMEN: Nontender. Urostomy and nephrostomy in place. EXTREMITIES: No clubbing. Positive for edema in the lower extremities. LABS: Sodium is 140, potassium is 3.7, chloride of 107, BUN of 16, creatinine of 1.13, better than when he came in. Patient's hematology; white count is 11,000, hemoglobin of 12.4, hematocrit of 37.5. MICROBIOLOGY: Patient has grown Enterococcus, which is sensitive to Levaquin. ASSESSMENT 1. Status post nephrostomy placement. 2. Urinary tract infection. 3. Chest pain. 4. Atrial fibrillation with rapid ventricular response, now rate controlled. 5. History of pacemaker placement. 6. History of urinary tract infection. PLAN: Continue with antibiotic. The patient is on 50 mg of metoprolol twice a day. Warfarin has been resumed for his AFib. Patient can be discharged on Levaquin at this point of time. Patient's blood pressure is high, we will add Lasix to his regimen on a daily basis. Further recommendations per clinical course. We will continue monitoring the patient along with the consultants. Job#: [id number] MARLEEN
[2018-10-11] MEDS: POTASSIUM CHLORIDE 20 MEQ TAB CR PO SCH (09:17)
[2018-10-11] MEDS: MEROPENEM 1GM 100 ML IV SCH ×2 (09:17→21:22)
[2018-10-11] MEDS: LISINOPRIL 10 MG TAB PO SCH (09:18)
[2018-10-11] MEDS: FUROSEMIDE 20 MG TAB PO SCH (09:18)
[2018-10-11] MEDS: METOPROLOL TARTRATE 50 MG TAB PO SCH ×2 (09:18→17:00)
--- NOTE | 2018-10-11 11:39 | NUR ---
PATIENT AMBULATING IN ROOM WITH PHYSICAL THERAPY, NO RESPIRATORY DISTRESS OBSERVED. WILL CONTINUE TO MONITOR.
--- NOTE | 2018-10-11 16:28 | NUR ---
PATIENT ASSISTED TO THE BED SIDE COMMODE AND BACK TO BED. BED IN LOWER POSITION, CALL LIGHT AT REACH.
--- NOTE | 2018-10-11 16:38 | Progress Note ---
DATE: CARDIOLOGY PROGRESS NOTE SUBJECTIVE: Patient is sleeping well, denies any cardiac symptoms. OBJECTIVE VITAL SIGNS: Temperature is 96, heart rate is 94, respirations are 20, and blood pressure is 135/83. GENERAL: This is a well-appearing elderly man, in no apparent stress. CARDIOVASCULAR: Regular rhythm. Normal rate. No murmurs. ABDOMEN: Soft and nontender. EXTREMITIES: No edema. LUNGS: Clear to auscultation. CARDIOVASCULAR MEDICATIONS: Reviewed. LABORATORY DATA: Reviewed. TELEMETRY MONITORING: Showed atrial fibrillation. IMPRESSION 1. Paroxysmal atrial fibrillation. 2. Chest pain. 3. History coronary artery disease. 4. Pacemaker placement. RECOMMENDATIONS: Patient is rate control with current dose of metoprolol. Continue warfarin for therapeutic INR. He is currently asymptomatic. Lasix has been started by primary team. We will continue to monitor urinary outputs. Increase lisinopril if needed for better blood pressure control. Job#: [id number] DELMA
[2018-10-11] MEDS: WARFARIN SOD 2 MG TAB PO SCH (17:12)
--- NOTE | 2018-10-11 20:02 | NUR ---
ASSISTED PATIENT WITH ADLS, NO RESPIRATORY DISTRESS OBSERVED AND HE DENIES PAIN. WARM PRUNE JUICE GIVEN REQUESTED BY THE PATIENT, HE'S REPOSITION IN BED FOR COMFORT. LEGS ELEVATED ON PILLOW DUE TO NON PITTING EDEMA TO THE LEGS. BED ALARM ON, CALL LIGHT WITHIN EASY REACH.
[2018-10-11] MEDS: TRAZODONE HCL 50 MG TAB PO SCH (21:22)
[2018-10-12] VITALS (7 sets, daily range): BP systolic 114–148; BP diastolic 56–76
--- NOTE | 2018-10-12 00:08 | NUR ---
PATIENT REPOSITION ON HIS SIDE FOR COMFORT, HE DENIES PAIN. UROSTOMY AND NEPHROSTOMY INTACT. BED ALARM ON, CALL LIGHT WITHIN EASY REACH.
--- NOTE | 2018-10-12 04:19 | NUR ---
WALKING ROUNDS MADE, PATIENT OBSERVED SOUNDLY ASLEEP WITHOUT RESPIRATORY DISTRESS. BED ALARM ON, CALL LIGHT WITHIN EASY REACH, NO SIGN OF PAIN OBSERVED.
[2018-10-12 05:12] LABS: BASOPHILS # (AUTO) 0.1 (0.0-0.1); BASOPHILS % 0.6 % (0.0-1.0); EOSINOPHILS # (AUTO) 0.5 (0.0-0.4); EOSINOPHILS % 4.2 % (0.0-6.0); HEMATOCRIT 32.6 % (38.2-49.6); HEMOGLOBIN 11.9 g/dL (14.0-18.0); LYMPHOCYTES # (AUTO) 1.2 (1.0-3.2); LYMPHOCYTES % 10.1 % (18.0-39.1); MEAN CORPUSCULAR HEMOGLOBIN 33.5 pg (28-32); MEAN CORPUSCULAR HGB CONC 36.5 g/dL (31-35); MEAN CORPUSCULAR VOLUME 91.8 fL (81-99); MONOCYTES # (AUTO) 1.1 (0.2-0.8); MONOCYTES % 9.4 % (4.4-11.3); NEUTROPHILS # (AUTO) 8.6 (2.1-6.9); NEUTROPHILS % 74.6 % (38.7-80.0); PLATELET COUNT 150 x10e3/uL (140-360); RED BLOOD COUNT 3.55 x10e6/uL (4.3-5.7); RED CELL DISTRIBUTION WIDTH 14.6 % (11.7-14.4)
[2018-10-12 05:23] LABS: INR 1.2; PROTHROMBIN TIME 16.3 seconds (11.9-14.5)
[2018-10-12 05:29] LABS: ANION GAP 13.6 mmol/L (8-16); BLOOD UREA NITROGEN 18 mg/dL (7-26); BUN/CREATININE RATIO 16 (6-25); CALCIUM 8.3 mg/dL (8.4-10.2); CARBON DIOXIDE 26 mmol/L (22-29); CHLORIDE 105 mmol/L (98-107); CREATININE, SERUM 1.11 mg/dL (0.72-1.25); EST GLOMERULAR FILTRATION RATE > 60 ML/MIN (60-); GLUCOSE 99 mg/dL (74-118); POTASSIUM 3.6 mmol/L (3.5-5.1); SODIUM 141 mmol/L (136-145)
[2018-10-12] MEDS: LEVOTHYROXINE SODIUM 112 MCG TAB PO SCH (05:55)
--- NOTE | 2018-10-12 07:05 | NUR ---
PATIENT IN BED RESTING WITH EYES CLOSED, NO RESPIRATORY DISTRESS OBSERVED. NEPHROSTOMY AND UROSTOMY TUBES DRAINING CLEAR YELLOW URINE. BED IN LOWER POSITION, CALL LIGHT AT REACH.
--- NOTE | 2018-10-12 07:25 | NUR ---
DR BAUTISTA ON THE UNIT, NOTIFIED OF PATIENT'S CHANGE OF CONDITION, NEW ORDER RECEIVED. V/S 97.3-487-95-138/70 AND 96% ON RA.
[2018-10-12] MEDS ORDERED: BISACODYL 5 MG TAB EC PO PRN (08:00)
--- NOTE | 2018-10-12 08:15 | NUR ---
CALLED IN THE ROOM BY PATIENT'S STATING: " I WAS FEEDING HIM AND HE IS NOT RESPONDING NOW". UPON ARRIVAL, PATIENT SITTING UP IN BED WITH BREAKFAST TRAY IN FRONT OF HIM. PATIENT APPEARS TO BE ASLEEP, CALL BY HIS NAME, BUT DID NOT RESPOND. MOUTH APPEARED EMPTIED. STERNUM RUB PERFORMED, STILL NOT RESPONDING. RAPID RESPONSE CALLED, BLOOD SUGAR CHECKED WITH THE READING OF 90. V/S 97.4-072-20-126/76 AND 97% ON RA. AFTER FEW MINUTES PATIENT STATED RESPONDING. STAT EKG DONE, PATIENT RUNNING A FIB. PATIENT BECAME VERBALLY RESPONSIVE. REPOSITIONED IN BED WITH HEAD OF BED ELEVATED, CALL LIGHT AT REACH, AT BED SIDE. WILL CLOSELY MONITOR.
[2018-10-12] MEDS: VANCOMYCIN 1GM/NS 250 ML 250 ML IV SCH ×2 (08:36→21:20)
[2018-10-12] MEDS: POTASSIUM CHLORIDE 20 MEQ TAB CR PO SCH (08:37)
[2018-10-12] MEDS: LISINOPRIL 10 MG TAB PO SCH (08:37)
[2018-10-12] MEDS: FUROSEMIDE 20 MG TAB PO SCH (08:37)
[2018-10-12] MEDS: METOPROLOL TARTRATE 50 MG TAB PO SCH ×2 (08:37→17:19)
--- NOTE | 2018-10-12 08:45 | NUR ---
ALL MORNING MEDICATIONS GIVEN ORDERED, PATIENT SWALLOWED WITHOUT ANY DIFFICULTY. SITTING UP IN BED TALKING TO FAMILY MEMBERS VISITING, NO COMPLAIN VOICED. WILL CLOSELY MONITOR.
[2018-10-12 09:38] LABS: CREATINE KINASE MB 1.5 ng/mL (0-5.0)
[2018-10-12] MEDS ORDERED: CEFTRIAXONE SOD 1 GM VIAL IV SCH (10:00)
--- NOTE | 2018-10-12 11:00 | NUR ---
PATIENT IV LEAKING, REMOVED WITH TIP INTACT. NEW IV 20 GAUGE INSERTED TO RIGHT FOREARM. PATIENT TOLERATED PROCEDURE WELL. IV ANTIBIOTIC INFUSING ORDERED. DENIED PAIN AT THIS TIME. IN BED TALKING TO FAMILY, CALL LIGHT AT REACH.
[2018-10-12] MEDS: CEFTRIAXONE SOD 1 GM/NS 50 ML 50 ML IV SCH ×2 (11:10→23:28)
--- NOTE | 2018-10-12 15:11 | NUR ---
PATIENT NOTED WITH BLISTER TO RIGHT LOWER BACK, MD NOTIFIED, NEW ORDER RECEIVED. PATIENT STILL REFUSED TO BE TURNED. AT BED SIDE, CALL LIGHT AT REACH.
[2018-10-12] MEDS: WARFARIN SOD 2 MG TAB PO SCH (17:19)
[2018-10-12] MEDS: MUPIROCIN 2% OINT 22 GM TUBE TOP SCH (17:19)
--- NOTE | 2018-10-12 17:50 | Progress Note ---
DATE: CARDIOLOGY PROGRESS NOTE SUBJECTIVE: Patient lying comfortably in bed. No apparent distress. No chest pain or shortness of breath. Evidently, patient had a syncopal or unresponsive event this morning. Electrocardiogram taken showed atrial fibrillation with a heart rate of 111. Currently, the patient is asymptomatic. OBJECTIVE VITAL SIGNS: Currently, temperature is 97.5, heart rate is 80, respirations are 18, blood pressure is 114/56, oxygen saturation is 95% on room air. GENERAL: He is an elderly man, lying in bed, no apparent distress. CARDIOVASCULAR: Irregular rhythm. Normal rate. No murmurs. ABDOMEN: Soft, nontender. EXTREMITIES: No edema. LUNGS: Diminished breath sounds at bilateral bases. CARDIOVASCULAR MEDICATIONS: Reviewed. LABORATORY DATA: Reviewed. Hemoglobin 11.9. Troponins negative. TELEMETRY: Monitoring revealed atrial fibrillation. Twelve-lead electrocardiogram showed atrial fibrillation with rapid ventricular response with a heart rate of 111. IMPRESSION 1. Paroxysmal atrial fibrillation. 2. Chest pain. 3. History of coronary artery disease. 4. Pacemaker placement. 5. Possible syncopal episode. RECOMMENDATIONS: Patient is currently rate controlled with metoprolol. Continue warfarin for therapeutic INR. He is currently asymptomatic. Unclear etiology for unresponsive event earlier. There is no evidence of acute coronary syndrome. A 12-lead electrocardiogram showed atrial fibrillation with mildly elevated heart rates. Continue Lasix for mild diuresis. If needed for better blood pressure control, can increase his lisinopril. Job#: [id number] TAE
--- NOTE | 2018-10-12 19:54 | NUR ---
RECEIVED PT SITTING ON THE BEDSIDE COMMODE . PT HAD BM HELPED THE PT . NO ACUTE DISTRESS NOTED. PT HAS UROSTOMY AN NEPHROSTOMY TUBE DRAINING CLEAR URINE DENIES PAIN CALL LIGHT WITH IN REACH .CONTINUE TO MONITOR
[2018-10-12] MEDS: TRAZODONE HCL 50 MG TAB PO SCH (21:20)
[2018-10-13] VITALS (8 sets, daily range): BP systolic 139–159; BP diastolic 65–79
--- NOTE | 2018-10-13 01:01 | Progress Note ---
DATE: SUBJECTIVE: Patient is admitted for nephrostomy tube, history of urostomy, history of altered mental status, history of pyelonephritis, history of atrial fibrillation, and renal insufficiency. Patient currently is asymptomatic. Edema is down. Patient is sleepy, but arousable. OBJECTIVE VITAL SIGNS: Temperature is 95.7, respirations of 18, blood pressure is 148/68, pulse oximetry 94% on room air. HEENT: Normocephalic, atraumatic. Pupils are reactive to light and accommodation. CVS: S1, S2 normal. Irregular rhythm. ABDOMEN: Nontender, nondistended. Positive for urostomy and nephrostomy. EXTREMITIES: No clubbing, no cyanosis. Positive for edema. MICROBIOLOGY VALUES: Blood culture from October 07, 2018 grew out some gram-positive rods resembling diphtheroids. We will await for susceptibility and urine culture from October 07, 2018 grew out Enterococcus faecalis sensitive to Levaquin. LABORATORY VALUES: Today's white count is still remaining elevated at 11.3 with left shift. Chemistries: Sodium 141, potassium of 3.6, BUN of 18, creatinine of 1.11. Coags: Today's PT was 16.3, INR is 1.20. ASSESSMENT 1. An 88-year-old gentleman status post nephrostomy tube. 2. Urostomy. 3. Possible sepsis, awaiting blood cultures. 4. Urinary tract infection. Continue with antibiotics. 5. History of coronary artery disease. Continue with anticoagulation. 6. Paroxysmal atrial fibrillation. Continue with anticoagulation and we have increased his warfarin to 3 mg. We will continue monitoring it. 7. Pacemaker placement. Continue monitoring patient. DISPOSITION: We will await blood cultures at this time. Further recommendations per clinical course. We will continue to monitor the patient along with consultants. Job#: [id number] PUN
[2018-10-13] MEDS ORDERED: SODIUM CHLORIDE 0.9% 250ML 250 ML ONE (05:07)
[2018-10-13] MEDS: LEVOTHYROXINE SODIUM 112 MCG TAB PO SCH (05:36)
[2018-10-13 05:37] LABS: INR 1.31; PROTHROMBIN TIME 17.4 seconds (11.9-14.5)
--- NOTE | 2018-10-13 06:11 | NUR ---
PT RESTING AND DENIES PAIN .CALL LIGHT WITH IN REACH .CONTINUE TO MONITOR
--- NOTE | 2018-10-13 07:02 | NUR ---
report given to the oncoming nurse
--- NOTE | 2018-10-13 07:30 | NUR ---
RECD PT IN BED RESTING ,NO S/S DISCOMFORT,SUPRA PUBIC CATH IN PLACE CLOUDY URINE,NEPROSTOMY TUBE IN PLACE
[2018-10-13] MEDS: POTASSIUM CHLORIDE 20 MEQ TAB CR PO SCH (08:30)
[2018-10-13] MEDS: LISINOPRIL 10 MG TAB PO SCH (08:30)
[2018-10-13] MEDS: METOPROLOL TARTRATE 50 MG TAB PO SCH ×2 (08:30→17:00)
[2018-10-13] MEDS: FUROSEMIDE 20 MG TAB PO SCH (08:30)
[2018-10-13] MEDS: VANCOMYCIN 1GM/NS 250 ML 250 ML IV SCH (09:00)
[2018-10-13] MEDS: MUPIROCIN 2% OINT 22 GM TUBE TOP SCH ×2 (09:00→17:00)
[2018-10-13] MEDS: CEFTRIAXONE SOD 1 GM/NS 50 ML 50 ML IV SCH ×2 (10:00→22:04)
--- NOTE | 2018-10-13 12:30 | NUR ---
IV PAINFUL TO TOUCH ,DCD .RESTARTED TO LT HAND 20 GAUGE.
--- NOTE | 2018-10-13 15:43 | Progress Note ---
DATE: October 13, 2018 CARDIOLOGY PROGRESS NOTE SUBJECTIVE: Patient denies chest pain or shortness of breath. OBJECTIVE VITALS: Temperature 97.6 degrees, pulse 87, respiratory rate 20, blood pressure 140/68, oxygen saturation 93% on room air. GENERAL: Elderly man in no acute distress. Awake and alert. LUNGS: Clear to auscultation bilaterally. No wheezes or crackles. CARDIOVASCULAR: Normal rate. Irregularly irregular. No murmur. Normal S1 and S2. ABDOMEN: Soft and nontender. EXTREMITIES: One plus pitting edema. CARDIAC MEDICATIONS 1. Furosemide 40 mg p.o. daily. 2. Lisinopril 10 mg p.o. daily. 3. Metoprolol tartrate 50 mg p.o. b.i.d. 4. Levothyroxine 112 mcg p.o. daily. 5. Warfarin 3 mg p.o. daily. LABS: INR 1.3. Telemetry is atrial fibrillation. IMPRESSION 1. Paroxysmal atrial fibrillation. 2. Chest pain. 3. History of coronary artery disease. 4. Pacemaker placement. 5. Possible syncopal episode. RECOMMENDATIONS: Patient is rate controlled. Continue metoprolol. Monitor the patient closely on telemetry. INR is subtherapeutic. Continue warfarin. Continue current cardiac medications otherwise. The patient's blood pressure is slightly elevated. However, the patient was reported to have a syncopal event yesterday. Check orthostatic vitals. No change in blood pressure. No change in antihypertensive therapy for now. Thank you for this consult. We will continue to follow. Job#: [id number] LA
--- NOTE | 2018-10-13 16:33 | NUR ---
Nutrition Screen Note RD Recommendation for Physician: -Continue cardiac diet as ordered Plan of Care: RD following, monitoring for tolerance and adequacy Nutrition reason for involvement: LOS Primary Diagnose(s): 1. Paroxysmal atrial fibrillation. 2. Chest pain. PMH: CAD, SC, HTN, HLD Ht: 67in Wt: 203.38lb BMI: 31.9kg/m2 IBW: 148lb RD Assessment: (10/13/18) Chart reviewed. Labs and meds reviewed. 88yo M, who is admitted for UTI and chest pain. Currently on IV abx, lasix, Coumadin, and K dur. Wound care noted healed stage II P.U. on right gluteal. 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 Pt denied chewing/swallowing problems and nausea/vomiting. RN recorded 75-100% meal intake. LBM 10/12. Will cont to monitor. Please consult as needed. Current Diet: cardiac diet Malnutrition Evaluation (10/13/18) The patient does not meet criteria for a specified degree of malnutrition at this time. Will re-evaluate at follow-up as appropriate. Diet Education Needs Assessment: Diet education not indicated. Nutrition Care Level: low Signed: Andreea Hernandez, MS, RD, LD
[2018-10-13] MEDS: WARFARIN SOD 3 MG TAB PO SCH (17:00)
--- NOTE | 2018-10-13 17:37 | NUR ---
urostomy bag leaking ,changed,.denies pain.no distress ntoed.
--- NOTE | 2018-10-13 19:27 | NUR ---
RECEIVED PT IN BED AOX3 .DENIES PAIN .NEPHROSTOMY AND UROSTOMY INTACT .CALL LIGHT WITH IN REACH .CONTINUE TO MONITOR
[2018-10-13] MEDS: TRAZODONE HCL 50 MG TAB PO SCH (21:49)
[2018-10-14] VITALS (8 sets, daily range): BP systolic 117–188; BP diastolic 63–85
[2018-10-14] MEDS: LEVOTHYROXINE SODIUM 112 MCG TAB PO SCH (06:07)
--- NOTE | 2018-10-14 06:19 | NUR ---
ANUM FRIAS IS 22.2.NOTIFIED DR IBARRA AND HOLD 2100 DOSE AND START AT 900 AM .PT RESTING .CALL CARRIZALES WITH IN REACH CONTINUE TO MONITOR
--- NOTE | 2018-10-14 07:06 | NUR ---
REPORT GIVEN TO THE ONCOMING NURSE
--- NOTE | 2018-10-14 07:30 | NUR ---
PT IN BED SLEEPING,NO S/S DISCOMFORT
--- NOTE | 2018-10-14 08:15 | NUR ---
UROSTOMY LEAKING ,CHANGED ,BACTRIBAN OINT. APPLIED TO SURROUNDING AREA
[2018-10-14] MEDS: VANCOMYCIN 1GM/NS 250 ML 250 ML IV SCH ×2 (08:30→21:00)
[2018-10-14] MEDS: LISINOPRIL 10 MG TAB PO SCH (09:00)
[2018-10-14] MEDS: POTASSIUM CHLORIDE 20 MEQ TAB CR PO SCH (09:00)
[2018-10-14] MEDS: METOPROLOL TARTRATE 50 MG TAB PO SCH ×2 (09:00→17:52)
[2018-10-14] MEDS: FUROSEMIDE 20 MG TAB PO SCH (09:00)
[2018-10-14] MEDS: MUPIROCIN 2% OINT 22 GM TUBE TOP SCH ×2 (09:00→17:00)
[2018-10-14] MEDS: CEFTRIAXONE SOD 1 GM/NS 50 ML 50 ML IV SCH ×2 (10:00→22:08)
--- NOTE | 2018-10-14 10:34 | NUR ---
UROSTOMY LEAKING AGAIN, CHANGED
--- NOTE | 2018-10-14 10:44 | Progress Note ---
DATE: October 14, 2018 CARDIOLOGY PROGRESS NOTE SUBJECTIVE: Patient denies chest pain or shortness of breath. OBJECTIVE VITALS: Temperature 97 degrees, pulse 72, respiratory rate 18, blood pressure 180/85, oxygen saturation 94%. GENERAL: Awake elderly man in no acute distress. LUNGS: Clear to auscultation bilaterally. No wheezes or crackles. CARDIOVASCULAR: Normal rate. Irregularly irregular. No murmur. Normal S1 and S2. ABDOMEN: Soft and nontender. EXTREMITIES: One plus pitting edema. CARDIAC MEDICATIONS 1. Levothyroxine 112 mcg p.o. daily. 2. Warfarin 3 mg p.o. daily. 3. Metoprolol tartrate 50 mg p.o. b.i.d. 4. Furosemide 40 mg p.o. daily. 5. Lisinopril 10 mg p.o. daily. LABS: None today. Telemetry is atrial fibrillation. IMPRESSION 1. Paroxysmal atrial fibrillation. 2. Chest pain. 3. History of coronary artery disease. 4. Pacemaker placement. 5. Possible syncopal episode. RECOMMENDATIONS: Rate is controlled. Continue metoprolol. Monitor the patient closely on telemetry. Continue current cardiac medications. The patient's blood pressure remains quite labile. No change to antihypertensive therapy at this time. Thank you for this consultation. We will continue to follow. Job#: [id number] JULIA
--- NOTE | 2018-10-14 14:45 | NUR ---
Educated on IMM. Pt verbalized understanding and signed. Original placed on chart, and copy placed in pt folder
[2018-10-14] MEDS: WARFARIN SOD 3 MG TAB PO SCH (17:00)
--- NOTE | 2018-10-14 17:00 | NUR ---
urostomy changed,bactriban oin applied
--- NOTE | 2018-10-14 17:53 | NUR ---
pt resting no distress ntoed.
--- NOTE | 2018-10-14 19:30 | NUR ---
RECEIVED PT IN BED AOX3 .NO ACUTE DISTRESS NOTED .UROSTOMY AND NEPHROSTOMY BAG INTACT. AND DRAINING FLUID .PT DENIES PAIN .CALL LIGHT WITH IN REACH .CONTINUE TO MONITOR
[2018-10-14] MEDS: TRAZODONE HCL 50 MG TAB PO SCH (22:08)
[2018-10-15] VITALS: BP 136/63
[2018-10-15 00:50] VITALS: BP 136/63
[2018-10-15 04:00] VITALS: BP 131/62
[2018-10-15] MEDS: LEVOTHYROXINE SODIUM 112 MCG TAB PO SCH (05:56)
[2018-10-15 06:02] LABS: INR 1.74; PROTHROMBIN TIME 21.7 seconds (11.9-14.5)
--- NOTE | 2018-10-15 07:00 | NUR ---
SHIFT REPORT RECEIVED FROM NIGHT RN. PT DENIES NEEDS AT THIS TIME.
--- NOTE | 2018-10-15 07:21 | NUR ---
REPORT GIVEN TO THE ON COMING NURSE
[2018-10-15 07:27] VITALS: BP 129/63
[2018-10-15 08:00] VITALS: BP 129/63
[2018-10-15] MEDS: VANCOMYCIN 1GM/NS 250 ML 250 ML IV SCH (09:34)
[2018-10-15] MEDS: POTASSIUM CHLORIDE 20 MEQ TAB CR PO SCH (09:35)
[2018-10-15] MEDS: METOPROLOL TARTRATE 50 MG TAB PO SCH (09:35)
[2018-10-15] MEDS: FUROSEMIDE 20 MG TAB PO SCH (09:35)
[2018-10-15] MEDS: MUPIROCIN 2% OINT 22 GM TUBE TOP SCH (09:36)
[2018-10-15] MEDS: LISINOPRIL 10 MG TAB PO SCH (09:36)
[2018-10-15] MEDS: CEFTRIAXONE SOD 1 GM/NS 50 ML 50 ML IV SCH (10:15)
[2018-10-15 11:04] VITALS: BP 112/55
--- NOTE | 2018-10-15 12:39 | Progress Note ---
DATE: October 15, 2018 CARDIOLOGY PROGRESS NOTE SUBJECTIVE: Patient denies chest pain or shortness of breath. OBJECTIVE VITAL SIGNS: Temperature 97.9 degrees, pulse 70, respiratory rate 18, blood pressure 129/63, oxygen saturation 96% on room air. GENERAL: Elderly man in no acute distress, awake and alert. LUNGS: Clear to auscultation bilaterally. No wheezes or crackles. CARDIOVASCULAR: Normal rate, irregularly irregular rhythm. No murmur. Normal S1 and S2. ABDOMEN: Soft, nontender. EXTREMITIES: 1+ pitting edema. CARDIAC MEDICATIONS 1. Lisinopril 10 mg p.o. daily. 2. Furosemide 40 mg p.o. daily. 3. Metoprolol tartrate 50 mg p.o. b.i.d. 4. Levothyroxine 112 mcg p.o. daily. 5. Warfarin 3 mg p.o. daily. LABS: INR 1.74. TELEMETRY: Atrial fibrillation, rate controlled. IMPRESSION 1. Paroxysmal atrial fibrillation. 2. Chest pain. 3. History of coronary artery disease. 4. Pacemaker placement. 5. Possible syncopal episode. RECOMMENDATIONS: Patient's heart rate is controlled. Continue metoprolol. Monitor patient closely on telemetry. Continue current cardiac medications. Patient's INR is rising. Continue warfarin therapy. He will need INR check one week after discharge. Please have patient follow up with us in the office in two weeks. Thank you for this consult. We will continue to follow. Job#: [id number]
--- NOTE | 2018-10-20 15:36 | Consultation ---
DATE OF CONSULTATION: REASON FOR CONSULTATION: UTI and sepsis, and recommendations for antibiotic. Mr. Adair is an 88-year-old white male who was admitted on October 09, 2018, to [facility]. Doing an audit or billing renal as we do not have a consult. I am redoing the consult again. This is an 88-year-old gentleman who has a history of myocardial infarction, coronary artery disease, status post pacemaker placement. The patient was admitted for nephrostomy exchange, which was done by interventional radiology on October 08, 2018. At night, he was found to have fever and feeling chest pain. Brought to the emergency room where he was admitted. The patient has a history of coronary artery disease, hypertension, hyperlipidemia. PAST SURGICAL HISTORY: As above. ALLERGIES: NKA. SOCIAL HISTORY: There is no smoking, drug abuse or alcohol abuse. FAMILY HISTORY: Otherwise unremarkable. The patient was admitted. HOME MEDICATIONS: Furosemide, lisinopril, metoprolol, levothyroxine, and Coumadin. REVIEW OF SYSTEMS: The patient when I saw him he was laying in bed comfortable. He was a little bit weak. He does not seem to be in acute distress. The patient is laying in bed comfortably. There is no new complaints. The urostomy tube was draining. The nephrostomy tube was doing well. The patient's urine culture showing enterococcus. Infectious disease was asked to see the patient to make recommendations. The patient was started on Levaquin. The patient has no fever. No chills. Review of systems otherwise unremarkable. Also noted, the patient did have gram-positive rods in the blood on October 07, 2018. LABORATORY DATA: White count was 11.05, hemoglobin 12.4. His sodium was 141, potassium 3.6, creatinine 1.1. REVIEW OF SYSTEMS HEENT: Negative. PULMONARY: Negative. CARDIAC: Negative. : Negative. SKIN: Unremarkable. The patient has been on Rocephin. He has been on meropenem. He has been on vancomycin. IMPRESSION 1. Urinary tract infection with enterococcus: Can change to amoxicillin. 2. Gram-positive bacilli bacteremia contamination: Can discontinue antibiotic. Plan on 10 days of amoxicillin. Follow up as an outpatient. Discussed with the patient. Discussed with the . Job#: [id number]
== END 2018-10-15 12:12 | disposition home or self-care (01) | DRG 698 ==
LOC: ER 09:00 → ERHOLD 14:57 → IMCU 17:05 → OBSVTOIN 10-08 11:28 → MED/SURG3 10-09 21:15
PROVIDERS: ADMIT Internal Medicine; ATTEND Internal Medicine
PROC: 0T25X0Z Change Drainage Device in Kidney, External Approach (ICD-10-PCS; principal; 2018-10-08)
DX: N99.521 Infection of incontinent external stoma of urinary tract (principal); A41.9 Sepsis, unspecified organism; N39.0 Urinary tract infection, site not specified; I48.0 Paroxysmal atrial fibrillation; I25.10 Atherosclerotic heart disease of native coronary artery without angina pectoris; Z79.01 Long term (current) use of anticoagulants; Z95.0 Presence of cardiac pacemaker; I25.2 Old myocardial infarction; E03.9 Hypothyroidism, unspecified; I10 Essential (primary) hypertension; Z82.49 Family history of ischemic heart disease and other diseases of the circulatory system; N99.522 Malfunction of incontinent external stoma of urinary tract; B95.2 Enterococcus as the cause of diseases classified elsewhere; B96.89 Other specified bacterial agents as the cause of diseases classified elsewhere; Z85.51 Personal history of malignant neoplasm of bladder; R55 Syncope and collapse; R07.9 Chest pain, unspecified
CPT/HCPCS: 36415; 50387; 50430; 74176; 74470; 80048; 80202; 81001; 82550; 82553; 82948; 84484; 85025; 85610; 85730; 87040; 87071; 87086; 87186; 87205; 93005; 96361; 96367; 97139; 99284; C1725; C1766; C1769; C1894; G0378; J0360; J0696; J1940; J2001; J2185; J2250; J3370; J7030; J7040; J7050

== ENCOUNTER 2018-10-31 12:44 | Emergency (ER) | payer MEDICARE ==
[~2018-10-31] VITALS: Ht 170.2 cm; Wt 93.9 kg
[~2018-10-31 12:44] MED LIST changes: +PENICILLIN V P500 MG PO
--- NOTE | 2018-10-31 12:50 | NUR ---
Dr. Cortes at bedside. Pt soiled with feces, ladi-care provided, noted excoriation to ladi-area. Flexi-seal placed per MD order. Pt noted to begin to vomit. Pt turned to Rt side, oral suctioning performed with richard per MD. Pt exhibiting poor inspiratory effort. MD requesting to intubate at this time. RT to bedside.
[2018-10-31] MEDS ORDERED: SODIUM CHLORIDE 0.9% 1000ML 1,000 ML ONE ×2 (13:10→13:48)
[2018-10-31] MEDS ORDERED: SODIUM CHLORIDE 0.9% 1000ML 1,000 ML IV STA ×3 (13:10)
[2018-10-31] MEDS ORDERED: ACETAMINOPHEN 1000 MG/100 ML IV ONE (13:18)
[2018-10-31] MEDS ORDERED: ETOMIDATE 2 MG/ML 10 ML INJ IV STA (13:23)
[2018-10-31] MEDS ORDERED: AMIODARONE HCL INJ 150MG/3ML IV ONE ×2 (13:30→19:45)
--- NOTE | 2018-10-31 13:30 | NUR ---
Pt noted to have wide complex tachycardia, palpable pulse. Verbal order for Amiodarone 300mg IVP x1 per ER MD. Meds administered as ordered.
[2018-10-31] MEDS ORDERED: VECURONIUM BROMIDE FOR INJ 20 MG VIAL IV ONE ×2 (13:34)
[2018-10-31] MEDS ORDERED: MEROPENEM 1GM 100 ML IV ONE ×2 (13:35)
[2018-10-31] MEDS ORDERED: SUCCINYLCHOLINE 200 MG/10 ML SYR IV ONE (14:00)
[2018-10-31] MEDS ORDERED: MIDAZOLAM HCL 2 MG/2 ML VIAL IV ONE (14:00)
[2018-10-31] MEDS ORDERED: FENTANYL CITRATE INJ 2,000 MCG in SODIUM CHLORIDE 0.9% 250ML 210 ML IV PRN (14:00)
[2018-10-31] MEDS ORDERED: ROCURONIUM BROMIDE 10 MG/ML 5ML VIAL IV ONE ×2 (14:00→17:45)
[2018-10-31] MEDS ORDERED: MIDAZOLAM HCL 25 MG in SODIUM CHLORIDE 0.9% 50ML 45 ML IV PRN (14:00)
[2018-10-31] MEDS ORDERED: DILTIAZEM HCL 5 MG/ML 5 ML VIAL IV ONE (14:05)
[2018-10-31] MEDS ORDERED: DILTIAZEM HCL IV 5MG/ML 25 ML VIAL ONE (14:09)
[2018-10-31] MEDS ORDERED: DILTIAZEM HCL VIAL 5 ML ONE (14:09)
[2018-10-31] MEDS ORDERED: DILTIAZEM HCL 125 ML IV SCH (14:10)
[2018-10-31] MEDS ORDERED: FLUCONAZOLE 200 MG/100 ML 100 ML IV STA (14:11)
[2018-10-31] MEDS ORDERED: PANTOPRAZOLE 40 MG 10ML VIAL IV STA (14:11)
[2018-10-31 14:24] LABS: BASOPHILS # (AUTO) 0.1 (0.0-0.1); BASOPHILS % 0.2 % (0.0-1.0); EOSINOPHILS # (AUTO) 0.2 (0.0-0.4); EOSINOPHILS % 1.1 % (0.0-6.0); HEMATOCRIT 42.8 % (38.2-49.6); HEMOGLOBIN 13.7 g/dL (14.0-18.0); LYMPHOCYTES # (AUTO) 1.5 (1.0-3.2); LYMPHOCYTES % 7.2 % (18.0-39.1); MEAN CORPUSCULAR HEMOGLOBIN 30.9 pg (28-32); MEAN CORPUSCULAR VOLUME 96.6 fL (81-99); MONOCYTES # (AUTO) 1.3 (0.2-0.8); MONOCYTES % 6.3 % (4.4-11.3); NEUTROPHILS # (AUTO) 17.4 (2.1-6.9); NEUTROPHILS % 83.2 % (38.7-80.0); PLATELET COUNT 207 x10e3/uL (140-360); RED BLOOD COUNT 4.43 x10e6/uL (4.3-5.7); RED CELL DISTRIBUTION WIDTH 14.6 % (11.7-14.4)
[2018-10-31] MEDS ORDERED: VANCOMYCIN HCL 1.5 GM in SODIUM CHLORIDE 0.9% 250ML 300 ML IV ONE (14:30)
[2018-10-31 14:46] LABS: INR 1.58; PARTIAL THROMBOPLASTIN TIME 24.1 seconds (23.8-35.5); PROTHROMBIN TIME 20.2 seconds (11.9-14.5)
[2018-10-31 14:50] LABS: ALBUMIN 3.3 g/dL (3.5-5.0); ALBUMIN/GLOBULIN RATIO 0.9 (0.8-2.0); ANION GAP 25.6 mmol/L (8-16); CALCIUM 8.7 mg/dL (8.4-10.2); CREATININE, SERUM 1.67 mg/dL (0.72-1.25); POTASSIUM 4.6 mmol/L (3.5-5.1)
[2018-10-31 15:19] LABS: MAGNESIUM 1.6 MG/DL (1.3-2.1); PHOSPHORUS 4.9 MG/DL (2.3-4.7)
--- NOTE | 2018-10-31 15:21 | Diagnostic Imaging Report ---
Examination: Single AP view of the chest. COMPARISON: None. INDICATION: Intubation DISCUSSION: Lines/tubes: Endotracheal tube 3 cm above the ayden. Enteric tube with the distal tip not visualized. Left IJ catheter with tip overlying the high right atrium. Lungs: Motion artifact. No consolidation. Pleura: No pleural effusion or pneumothorax. Heart and mediastinum: The heart and the mediastinum are unremarkable. Bones and soft tissues: No acute bony abnormalities. IMPRESSION: Satisfactory endotracheal tube and enteric tube. Signed by: Dr. Leander Duran M.D. on 10/31/2018 3:17 PM
--- NOTE | 2018-10-31 15:30 | NUR ---
DR BRITT HERE FOR H&P
[2018-10-31 15:40] LABS: THYROID STIMULATING HORMONE 4.216 uIU/mL (0.350-4.940)
[2018-10-31 15:50] LABS: OCCULT BLOOD STOOL POSITIVE (NEGATIVE)
[2018-10-31 15:53] VITALS: BP 89/62
[2018-10-31 16:03] LABS: ABG HCO3 17 mmol/L (23-28); ABG PCO2 44 mmHg (41-51); ABG PO2 320 mmHg (80-105)
[2018-10-31 16:04] LABS: CLARITY,URINE CLOUDY (CLEAR); COLOR,URINE YELLOW (YELLOW)
[2018-10-31 16:10] LABS: LEUKOCYTE ESTERASE ,URINE TRACE (NEGATIVE); NITRITE,URINE POSITIVE (NEGATIVE); PROTEIN,URINE DIPSTICK 2+ (NEGATIVE)
[2018-10-31 16:11] LABS: BACTERIA,URINE MANY /HPF; BILIRUBIN,URINE NEGATIVE (NEGATIVE); KETONES,URINE NEGATIVE (NEGATIVE); URINE UROBILINOGEN 0.2 mg/dL (0.2 - 1); WBC,URINE (MAN) 21-50 /HPF (0-5)
[2018-10-31] MEDS ORDERED: AMIODARONE HCL INJ 150MG/3ML ONE ×2 (16:26→18:55)
[2018-10-31] MEDS ORDERED: SUCCINYLCHOLINE CHLORIDE 20 MG/ML 10ML VIAL ONE (16:30)
[2018-10-31] MEDS ORDERED: MIDAZOLAM HCL 2 MG/2 ML VIAL ONE (16:30)
[2018-10-31] MEDS ORDERED: WATER STERILE 10 ML VIAL ONE (16:30)
[2018-10-31] MEDS ORDERED: ETOMIDATE 2 MG/ML 10 ML INJ IV ONE (16:30)
[2018-10-31] MEDS ORDERED: VECURONIUM BROMIDE FOR INJ 20 MG VIAL ONE (16:30)
[2018-10-31] MEDS ORDERED: PANTOPRAZOLE 40 MG 10ML VIAL IV NR (17:45)
[2018-10-31 17:49] LABS: BASOPHILS % 0.2 % (0.0-1.0); EOSINOPHILS % 0.3 % (0.0-6.0); HEMATOCRIT 42.4 % (38.2-49.6); HEMOGLOBIN 14.2 g/dL (14.0-18.0); LYMPHOCYTES # (AUTO) 0.3 (1.0-3.2); LYMPHOCYTES % 2.7 % (18.0-39.1); MEAN CORPUSCULAR HEMOGLOBIN 31.1 pg (28-32); MEAN CORPUSCULAR HGB CONC 33.5 g/dL (31-35); MONOCYTES # (AUTO) 0.5 (0.2-0.8); MONOCYTES % 3.9 % (4.4-11.3); NEUTROPHILS # (AUTO) 11.7 (2.1-6.9); NEUTROPHILS % 91.2 % (38.7-80.0); PLATELET COUNT 167 x10e3/uL (140-360); RED BLOOD COUNT 4.56 x10e6/uL (4.3-5.7); RED CELL DISTRIBUTION WIDTH 14.6 % (11.7-14.4)
[2018-10-31 17:56] LABS: ABG PH 7.27 (7.31-7.41)
[2018-10-31 17:57] LABS: ABG HCO3 18 mmol/L (23-28); ABG PCO2 39 mmHg (41-51); ABG PO2 333 mmHg (80-105)
[2018-10-31 18:00] LABS: ANION GAP 16.2 mmol/L (8-16); CREATININE, SERUM 1.3 mg/dL (0.72-1.25); POTASSIUM 3.2 mmol/L (3.5-5.1)
[2018-10-31] MEDS ORDERED: AMIODARONE HCL 150MG 200 ML ONE (18:55)
[2018-10-31] MEDS ORDERED: AMIODARONE 900MG 500 ML IV ONE (18:56)
[2018-10-31] MEDS ORDERED: SODIUM CHLORIDE 0.9% 1000ML 2,000 ML ONE (18:56)
--- NOTE | 2018-10-31 18:56 | NUR ---
Pt noted to have wide complex tachycardia, +pulse. Dr. Cortes to BS, connected to defibrillator pads & monitor. Amiodarone 300mg IVP administered. 1900: Amiodarone gtt initiated per protocol. Verbal order for additional 2L NS to be infused via pressure bag. 1st liter NS initiated.
--- NOTE | 2018-10-31 19:29 | NUR ---
[facility] contacted at this time for transport to [facility] ICU bed 9.
[2018-10-31] MEDS ORDERED: AMIODARONE HCL 900 MG in DEXTROSE 5% 500ML 500 ML IV SCH (19:45)
[2018-10-31] MEDS ORDERED: SODIUM CHLORIDE 0.9% 1000ML 1,000 ML IV ONE ×2 (20:30)
--- NOTE | 2018-10-31 21:32 | NUR ---
patient departed with acute medical services, 135/68, p.110, resp sat 100.
[2018-11-01 14:33] LABS: C DIFFICILE TOXIN A&B AMP PROB NEGATIVE (NEGATIVE)
== END 2018-10-31 21:33 | disposition other institution (70) ==
LOC: ER 12:44
DX: R65.20 Severe sepsis without septic shock (principal); J96.01 Acute respiratory failure with hypoxia; G96.9 Disorder of central nervous system, unspecified; J96.00 Acute respiratory failure, unspecified whether with hypoxia or hypercapnia
CPT/HCPCS: 31500; 36415; 36555; 36600; 71045; 80048; 80053; 81001; 82270; 82805; 83605; 83735; 83880; 84100; 84443; 84484; 85025; 85379; 85610; 85730; 87040; 87071; 87086; 87186; 87205; 87400; 87493; 93005; 94002; 99285; C9113; J0282; J0330; J1450; J2185; J2250 ×2; J3370; J7030; J7050; J7060

== ENCOUNTER 2018-12-24 20:07 | Inpatient (IN) | payer MEDICARE ==
[~2018-12-24] VITALS: Ht 170.2 cm; Wt 91.2 kg
[~2018-12-24 20:07] MED LIST changes: -BACTRIM DS TAB1 EACH PO; -CEFAZOLIN SOD 1 GM VIAL ONE; -FAMOTIDINE20 MG PO; -FENTANYL CITRATE/PF 100MCG/2 ML INJ ONE; -LIDOCAINE HCL 2% LOCAL 20 ML VIAL ONE; -LOPRESSOR25 MG PO; -MEROPENEM 1GM 100 ML IV SCH; -MEROPENEM 500MG 500 MG in SODIUM CHLORIDE 0.9% 50ML 50 ML IV SCH; -MIDAZOLAM HCL 2 MG/2 ML VIAL ONE; -NORVASC5 MG PO; -ONDANSETRON HCL INJ 2MG/ML 2ML 2 MG/ML VIAL IV PRN; -SENNA LAX8.6 MG; -SODIUM CHLORIDE 0.9% 1000ML 1,000 ML IV SCH; -SODIUM CHLORIDE 0.9% 500ML 1,000 ML ONE; -SODIUM CHLORIDE 0.9% 50ML 50 ML ONE
--- NOTE | 2018-12-24 20:15 | NUR ---
pt has right urostomy with urine draining into urostomy bag, r ureterostomy not draining, examined tubing and noted line set in OFF position, slid to on position and cloudy urine began draining into tubing and bag.
[2018-12-24] MEDS ORDERED: IBUPROFEN 200 MG TAB PO PRN (20:30)
[2018-12-24] MEDS ORDERED: ACETAMINOPHEN 325 MG TAB PO PRN (20:30)
[2018-12-24] MEDS ORDERED: MORPHINE SULFATE 2 MG/ML SYR 1ML IV PRN (20:30)
[2018-12-24] MEDS ORDERED: HYDRALAZINE HCL 20 MG/ML VIAL IV PRN (20:30)
[2018-12-24] MEDS ORDERED: ONDANSETRON HCL INJ 2MG/ML 2ML 2 MG/ML VIAL IV PRN (20:30)
[2018-12-24] MEDS ORDERED: ZOLPIDEM TARTRATE 5 MG TAB PO PRN (20:30)
[2018-12-24] MEDS ORDERED: ENALAPRILAT IV INJ 1.25 MG/ML VIAL IV PRN (20:30)
[2018-12-24] MEDS ORDERED: DIPHENHYDRAMINE HCL INJ 50 MG/ML VIAL IV PRN (20:30)
[2018-12-24] MEDS ORDERED: PROMETHAZINE 12.5MG/ NACL 0.9% 12.5 MG/50 ML BAG IV PRN (20:30)
[2018-12-24] MEDS ORDERED: MORPHINE SULFATE INJ 4 MG/ML INJ 1ML IV PRN (20:45)
[2018-12-24] MEDS ORDERED: IBUPROFEN 400 MG TAB PO PRN (20:45)
[2018-12-24 20:48] LABS: BASOPHILS # (AUTO) 0.1 (0.0-0.1); BASOPHILS % 0.5 % (0.0-1.0); EOSINOPHILS # (AUTO) 0.3 (0.0-0.4); EOSINOPHILS % 1.8 % (0.0-6.0); HEMATOCRIT 32.8 % (38.2-49.6); HEMOGLOBIN 10.6 g/dL (14.0-18.0); LYMPHOCYTES # (AUTO) 0.7 (1.0-3.2); LYMPHOCYTES % 5.1 % (18.0-39.1); MEAN CORPUSCULAR HEMOGLOBIN 30.5 pg (28-32); MEAN CORPUSCULAR HGB CONC 32.3 g/dL (31-35); MEAN CORPUSCULAR VOLUME 94.3 fL (81-99); MONOCYTES # (AUTO) 1.1 (0.2-0.8); MONOCYTES % 7.7 % (4.4-11.3); NEUTROPHILS # (AUTO) 11.9 (2.1-6.9); NEUTROPHILS % 84.3 % (38.7-80.0); PLATELET COUNT 232 x10e3/uL (140-360); RED BLOOD COUNT 3.48 x10e6/uL (4.3-5.7); RED CELL DISTRIBUTION WIDTH 15.8 % (11.7-14.4)
[2018-12-24] MEDS ORDERED: PROMETHAZINE 12.5MG/ NACL 0.9% 50 ML IV PRN (21:00)
[2018-12-24 21:14] LABS: ALANINE AMINOTRANSFERASE 11 IU/L (0-55); ALBUMIN 2.9 g/dL (3.5-5.0); ALBUMIN/GLOBULIN RATIO 0.8 (0.8-2.0); ALKALINE PHOSPHATASE 74 IU/L (40-150); ANION GAP 12.8 mmol/L (8-16); BLOOD UREA NITROGEN 11 mg/dL (7-26); BUN/CREATININE RATIO 11 (6-25); CALCIUM 8.7 mg/dL (8.4-10.2); CARBON DIOXIDE 23 mmol/L (22-29); CHLORIDE 99 mmol/L (98-107); CREATININE, SERUM 0.99 mg/dL (0.72-1.25); EST GLOMERULAR FILTRATION RATE > 60 ML/MIN (60-); GLUCOSE 114 mg/dL (74-118); POTASSIUM 3.8 mmol/L (3.5-5.1); SODIUM 131 mmol/L (136-145)
[2018-12-24] MEDS: MEROPENEM 1GM 100 ML IV SCH (21:52)
[2018-12-24] MEDS ORDERED: LOPRESSOR25 MG PO (21:55)
[2018-12-24] MEDS ORDERED: FAMOTIDINE20 MG PO (21:55)
[2018-12-24] MEDS ORDERED: MEROPENEM 1GRAM 1 GM in SODIUM CHLORIDE 0.9% 100 ML 100 ML IV SCH (22:00)
[2018-12-24 22:06] VITALS: BP 121/74
--- NOTE | 2018-12-24 22:06 | NUR ---
PT ARRIVED ON THE UNIT VIA STRETCHER AT 2206 WITH AT BEDSIDE. PT IS A&OX2. RESPIRATION IS EVEN AND UNLABORED, NO DISTRESS NOTED. BED IN THE LOWEST POSITION, LOCKED, BED ALARM ON, AND CALL LIGHT WITHIN REACH. ADMISSION AND HEAD TO TOE ASSESSMENT COMPLETE. WILL CONTINUE TO MONITOR.
[2018-12-24] MEDS ORDERED: NORVASC5 MG PO (22:59)
[2018-12-24] MEDS ORDERED: SENNA LAX8.6 MG (22:59)
[2018-12-24] MEDS: LACTATED RINGER'S 1,000 ML IV SCH (23:45)
[2018-12-25] VITALS (8 sets, daily range): BP systolic 118–151; BP diastolic 59–74
[2018-12-25] MEDS ORDERED: TRAMADOL HCL 50 MG TAB PO PRN (04:30)
[2018-12-25] MEDS: MEROPENEM 1GM 100 ML IV SCH ×3 (05:12→21:06)
[2018-12-25 06:23] LABS: INR 1.54; PROTHROMBIN TIME 19.1 seconds (11.9-14.5)
--- NOTE | 2018-12-25 07:10 | NUR ---
PATIENT IN BED RESTING WITH NO S/S OF DISCOMFORT. RIGHT UROSTOMY AND NEPHROSTOMY IN PLACE, DRAINING CLEAR YELLOW URINE. SWELLING TO ARMS, ELEVATED ON PILLOW, WOUND TO RIGHT HEEL, HEEL PROTECTORS APPLIED. BED IN LOWER POSITION, CALL LIGHT AT REACH.
[2018-12-25] MEDS: LEVOTHYROXINE SODIUM 112 MCG TAB PO SCH (07:30)
[2018-12-25] MEDS ORDERED: METOPROLOL TARTRATE 50 MG TAB PO SCH (09:00)
[2018-12-25] MEDS ORDERED: FAMOTIDINE 20 MG TAB PO SCH (09:00)
[2018-12-25] MEDS: METOPROLOL TARTRATE 25 MG TAB PO SCH (09:06)
[2018-12-25] MEDS: FAMOTIDINE 20 MG/2 ML VIAL IV SCH ×2 (09:06→17:41)
[2018-12-25] MEDS: AMLODIPINE BESYLATE 5 MG TAB PO SCH (09:07)
--- NOTE | 2018-12-25 11:38 | NUR ---
300 CC OF YELLOW URINE REMOVED FROM NEPHRECTOMY AND 25 CC REMOVED FROM UROSTOMY. PATIENT REPOSITIONED IN BED. CALL LIGHT AT REACH.
[2018-12-25] MEDS: LACTATED RINGER'S 1,000 ML IV SCH (13:17)
--- NOTE | 2018-12-25 16:08 | NUR ---
PATIENT IN BED RESTING WITH NO RESPIRATORY DISTRESS. IV FLUID INFUSING ORDERED. BED IN LOWER POSITION, CALL LIGHT AT REACH.
[2018-12-25] MEDS ORDERED: ONDANSETRON HCL 4 MG ORAL DISINTEGRATING TAB PO PRN (17:15)
[2018-12-25] MEDS: WARFARIN SOD 2 MG TAB PO SCH (17:41)
--- NOTE | 2018-12-25 19:16 | NUR ---
PT IS RESTING IN BED WITH AT BEDSIDE. NO RESPIRATORY DISTRESS NOTED. BED IN THE LOWEST POSITION, LOCKED, BED ALARM ON, AND CALL LIGHT WITHIN REACH. WILL CONTINUE TO MONITOR.
[2018-12-25] MEDS: TRAZODONE HCL 50 MG TAB PO SCH (21:00)
[2018-12-26] VITALS (8 sets, daily range): BP systolic 110–138; BP diastolic 56–62
[2018-12-26] MEDS ORDERED: SODIUM CHLORIDE 0.9% 250ML 250 ML ONE (05:48)
[2018-12-26] MEDS: MEROPENEM 1GM 100 ML IV SCH ×3 (06:06→21:02)
[2018-12-26 07:11] LABS: BASOPHILS # (AUTO) 0.1 (0.0-0.1); BASOPHILS % 0.5 % (0.0-1.0); EOSINOPHILS # (AUTO) 0.7 (0.0-0.4); EOSINOPHILS % 7.1 % (0.0-6.0); HEMATOCRIT 36.4 % (38.2-49.6); HEMOGLOBIN 11.5 g/dL (14.0-18.0); LYMPHOCYTES # (AUTO) 0.8 (1.0-3.2); LYMPHOCYTES % 7.3 % (18.0-39.1); MEAN CORPUSCULAR HEMOGLOBIN 30.3 pg (28-32); MEAN CORPUSCULAR HGB CONC 31.6 g/dL (31-35); MONOCYTES # (AUTO) 0.8 (0.2-0.8); MONOCYTES % 8.1 % (4.4-11.3); NEUTROPHILS # (AUTO) 7.9 (2.1-6.9); NEUTROPHILS % 76.2 % (38.7-80.0); PLATELET COUNT 240 x10e3/uL (140-360); RED BLOOD COUNT 3.79 x10e6/uL (4.3-5.7); RED CELL DISTRIBUTION WIDTH 15.9 % (11.7-14.4)
[2018-12-26 07:26] LABS: ALANINE AMINOTRANSFERASE 14 IU/L (0-55); ALBUMIN/GLOBULIN RATIO 0.8 (0.8-2.0); ALKALINE PHOSPHATASE 74 IU/L (40-150); ANION GAP 12.9 mmol/L (8-16); BLOOD UREA NITROGEN 8 mg/dL (7-26); BUN/CREATININE RATIO 8 (6-25); CALCIUM 9.2 mg/dL (8.4-10.2); CARBON DIOXIDE 25 mmol/L (22-29); CHLORIDE 105 mmol/L (98-107); CREATININE, SERUM 0.98 mg/dL (0.72-1.25); EST GLOMERULAR FILTRATION RATE > 60 ML/MIN (60-); GLUCOSE 95 mg/dL (74-118); POTASSIUM 3.9 mmol/L (3.5-5.1); SODIUM 139 mmol/L (136-145)
--- NOTE | 2018-12-26 07:30 | NUR ---
REC'D PT AAOX2, AT BEDSIDE, NO S/S OF DISTRESS, BED IN THE LOWEST POSITION, SIDE RAILS UP X2, AND CALL LIGHT WITHIN REACH.
[2018-12-26] MEDS: TRAMADOL HCL 50 MG TAB PO PRN ×2 (08:43→16:30)
[2018-12-26] MEDS: AMLODIPINE BESYLATE 5 MG TAB PO SCH (08:45)
[2018-12-26] MEDS: LEVOTHYROXINE SODIUM 112 MCG TAB PO SCH (08:45)
[2018-12-26] MEDS: METOPROLOL TARTRATE 25 MG TAB PO SCH (08:46)
[2018-12-26] MEDS: FAMOTIDINE 20 MG/2 ML VIAL IV SCH ×2 (08:51→17:35)
--- NOTE | 2018-12-26 11:45 | NUR ---
PT RESTING QUIETLY WITH EYES OPENED, NO S/S OF DISTRESS, AND AT BEDSIDE. BED AT LOWEST POSITION, SIDE RAILS UP X2, AND CALL LIGHT WITHIN REACH. O2 VIA NC RUNNING AT 2L/MIN.
--- NOTE | 2018-12-26 14:00 | NUR ---
PT TURNED ON R SIDE, APPLIED FOAM DRESSING ON R HEEL, APPLIED HEEL PROTECTORS BILATERALLY. AT BEDSIDE, NO S/S OF DISTRESS. BED IN LOWEST POSITION, HOB PLACED TO SEMI-FOWLERS, SIDE RAILS UP X,2 AND CALL LIGHT WITHIN REACH.
[2018-12-26] MEDS: WARFARIN SOD 2 MG TAB PO SCH (17:36)
--- NOTE | 2018-12-26 18:00 | NUR ---
PT RESTING QUIETLY WITH EYES OPENED, NO S/S OF DISTRESS, AT BEDSIDE. BED AT LOWEST POSITION, SIDE RAILS UP X2, AND CALL LIGHT WITHIN REACH
--- NOTE | 2018-12-26 19:15 | NUR ---
patient received awake, alert, lying quietly in bed. no c/o pain noted. 02/2l/nc in use. respirations even and unlabored. pm assessment complete. noted at the bedside. patient/ instructed to call for assistance when needed.
[2018-12-26] MEDS: TRAZODONE HCL 50 MG TAB PO SCH (21:00)
[2018-12-27] VITALS (7 sets, daily range): BP systolic 102–123; BP diastolic 53–66
[2018-12-27] MEDS: MEROPENEM 1GM 100 ML IV SCH ×3 (05:35→21:02)
[2018-12-27] MEDS: TRAMADOL HCL 50 MG TAB PO PRN (08:00)
[2018-12-27] MEDS: LEVOTHYROXINE SODIUM 112 MCG TAB PO SCH (08:00)
--- NOTE | 2018-12-27 08:05 | NUR ---
recd pt in bed ,c/o rt heel pain,heel protectors in place,rt heel black, tender to touch,wound care consulted,sacral area stage 1 ,dr finch here notified,orders written
[2018-12-27] MEDS: AMLODIPINE BESYLATE 5 MG TAB PO SCH (08:44)
[2018-12-27] MEDS: METOPROLOL TARTRATE 25 MG TAB PO SCH (08:44)
[2018-12-27] MEDS: FAMOTIDINE 20 MG/2 ML VIAL IV SCH ×2 (08:44→17:00)
--- NOTE | 2018-12-27 09:12 | Progress Note ---
DATE: SUBJECTIVE: The patient is currently complaining of some abdominal pain; otherwise asymptomatic, afebrile. The patient has been admitted for urinary tract infection, altered mental status, and also pyelonephritis with back strain. The patient has additional history of renal insufficiency and atrial fibrillation, which is chronic. OBJECTIVE: VITAL SIGNS: Temperature is 97.9, pulse of 98, respirations of 18, and blood pressure is 115/57. HEENT: Normocephalic, atraumatic. The patient is hard of hearing. CVS: S1, S2 irregular. ABDOMEN: Nontender, nondistended, and CVA tenderness present. The patient has a nephrostomy tube draining. EXTREMITIES: Positive for trace edema. LABORATORY VALUES: White count is 10.39, down from 14,000, hemoglobin of 11.5, hematocrit of 36.4. Chemistries show sodium of 139, BUN 8, creatinine 0.98. Coags are normal. INR is 1.54. MEDICATIONS: He is on Merrem, trazodone, warfarin 2 mg, tramadol 50, metoprolol 25 mg, levothyroxine 112, amlodipine 10, morphine sulfate 2 mg as needed, hydralazine 10 as needed, and diphenhydramine. ASSESSMENT: 1. Urinary tract infection. 2. Failed nephrostomy tube. 3. Debility. 4. Hypertension. 5. Hyperlipidemia. 6. Atrial fibrillation. 7. Continuous anticoagulation. PLAN: Plan is to continue with IV antibiotics. The patient needs to be switched to p.o. antibiotics when discharged. Continue with warfarin. Need to regulate his warfarin. Last INR was subtherapeutic. Further recommendation per clinical course. We will have Urology antibiotics and discharge. Microbiology shows gram-negative bacillus, Pseudomonas, and also yeast. Workup and susceptibility and identification are pending. MD EDSON Schaefer/CLAIRE /[id number]
[2018-12-27] MEDS: BALSAM PERU/CASTOR OIL 60 GM OINT...G. TP SCH ×2 (13:41→17:00)
[2018-12-27] MEDS: WARFARIN SOD 2 MG TAB PO SCH (17:00)
--- NOTE | 2018-12-27 18:10 | NUR ---
PT UP IN BED NO DISTRESS NOTED.O2 2L NC IN PLACE,DENIES PAIN AT THIS TIME
[2018-12-27] MEDS: ALBUTEROL/IPRATROPIUM 3 ML NEB NEB PRN (19:49)
[2018-12-27] MEDS: TRAZODONE HCL 50 MG TAB PO SCH (20:24)
[2018-12-28] VITALS (7 sets, daily range): BP systolic 106–134; BP diastolic 53–62
[2018-12-28] MEDS: MEROPENEM 1GM 100 ML IV SCH ×3 (05:29→21:25)
[2018-12-28 05:51] LABS: INR 1.77; PROTHROMBIN TIME 21.3 seconds (11.9-14.5)
--- NOTE | 2018-12-28 07:30 | NUR ---
REC'D PT AAOX2, AT BEDSIDE, WHEEZING NOTED, SAT PT UP TO HIGH-FOWLERS POSITION, NASAL CANNULA RUNNING AT 2 L/MIN, NO S/S OF DISTRESS. BED IN LOWEST POSITION, SIDE RAILS UP X2, AND CALL LIGHT WITHIN REACH.
[2018-12-28] MEDS: ALBUTEROL/IPRATROPIUM 3 ML NEB NEB PRN ×2 (07:33→19:22)
[2018-12-28] MEDS: FAMOTIDINE 20 MG/2 ML VIAL IV SCH ×2 (08:03→16:26)
[2018-12-28] MEDS: DOCUSATE SODIUM 100 MG CAP PO SCH ×2 (08:03→16:26)
[2018-12-28] MEDS: AMLODIPINE BESYLATE 5 MG TAB PO SCH (08:04)
[2018-12-28] MEDS: METOPROLOL TARTRATE 25 MG TAB PO SCH (08:04)
[2018-12-28] MEDS: LEVOTHYROXINE SODIUM 112 MCG TAB PO SCH (08:16)
[2018-12-28] MEDS ORDERED: BISACODYL 5 MG TAB EC PO ONE (08:30)
--- NOTE | 2018-12-28 11:01 | Progress Note ---
DATE: SUBJECTIVE: This patient is here for urinary tract infection and possible infected nephrostomy tube, currently complaining of some wheezing. DuoNeb was started yesterday. Also, the patient complains of constipation. MEDICATIONS: Amlodipine, famotidine, diphenhydramine, ibuprofen, hydralazine, levothyroxine, meropenem, Toradol, trazodone, and warfarin. The patient is also on zolpidem. OBJECTIVE: VITAL SIGNS: Temperature is 98.0, pulse of 82, respiration of 20, blood pressure is 109/53, pulse oximetry of 97%. HEENT: Normocephalic, atraumatic. Pupils are reactive to light and accommodation. CVS: S1, S2. Irregular. ABDOMEN: Nontender, nondistended. Nephrostomy tube in place. EXTREMITIES: No clubbing. No cyanosis. Positive for trophic changes. LABORATORY VALUES: None from the . Coags; INR was 1.77 today. Chemistries; sodium 139, BUN of 8 and creatinine 0.98. ASSESSMENT: Urinary tract infection, failed nephrostomy tube, debility, constipation, hypertension, hyperlipidemia, atrial fibrillation. PLAN: Plan is to continue with IV antibiotics. The patient to be switched to p.o. before he goes. DuoNebs have been started for wheezing. The patient will get some Dulcolax for constipation. Further recommendation per clinical course. The patient can be discharged in morning on p.o. medications depending on Urology and primary care. MD EDSON Schaefer/ERICAL /[id number]
[2018-12-28] MEDS: BALSAM PERU/CASTOR OIL 60 GM OINT...G. TP SCH ×2 (12:00→16:26)
--- NOTE | 2018-12-28 12:00 | NUR ---
PT EATING LUNCH WITHOUT S/S OF DISTRESS, ASSISTING HIM WITH FEEDINGS, SIDE RAILS UP X2, BED IN LOWEST POSITION, AND CALL LIGHT WITHIN REACH.
--- NOTE | 2018-12-28 14:00 | NUR ---
PT RESTING WITH EYES CLOSED, NASAL CANNULA IN PLACE RUNNING AT 2 L/MIN, NO S/S OF DISTRESS. FLUSHED NEPHROSTOMY TUBE WITH 10 CC OF NS PER PHYSICIAN'S ORDER. BED IN LOWEST POSITION, SIDE RAILS UP X2, AND CALL LIGHT WITHIN REACH.
[2018-12-28] MEDS: WARFARIN SOD 2 MG TAB PO SCH (16:26)
--- NOTE | 2018-12-28 17:53 | NUR ---
BLADDER SCAN PERFORMED ON PATIENT. VOLUME OF 0 ML ON ALL AREAS OF BLADDER.
[2018-12-28] MEDS ORDERED: SODIUM CHLORIDE 0.9% 500ML 500 ML IV SCH (19:00)
[2018-12-28] MEDS: TRAZODONE HCL 50 MG TAB PO SCH (20:02)
[2018-12-29] VITALS: BP_SYST 121; BP_SYST 126; BP_DIAS 61
[2018-12-29 04:00] VITALS: BP 125/58
[2018-12-29] MEDS: MEROPENEM 1GM 100 ML IV SCH (05:05)
[2018-12-29 06:34] LABS: BASOPHILS # (AUTO) 0.1 (0.0-0.1); BASOPHILS % 0.5 % (0.0-1.0); EOSINOPHILS % 10.1 % (0.0-6.0); HEMATOCRIT 31.3 % (38.2-49.6); HEMOGLOBIN 10.1 g/dL (14.0-18.0); LYMPHOCYTES # (AUTO) 0.8 (1.0-3.2); LYMPHOCYTES % 8.1 % (18.0-39.1); MEAN CORPUSCULAR HEMOGLOBIN 30.5 pg (28-32); MEAN CORPUSCULAR HGB CONC 32.3 g/dL (31-35); MEAN CORPUSCULAR VOLUME 94.6 fL (81-99); MONOCYTES # (AUTO) 0.8 (0.2-0.8); MONOCYTES % 8.3 % (4.4-11.3); NEUTROPHILS # (AUTO) 7.1 (2.1-6.9); NEUTROPHILS % 72.4 % (38.7-80.0); PLATELET COUNT 216 x10e3/uL (140-360); RED BLOOD COUNT 3.31 x10e6/uL (4.3-5.7); RED CELL DISTRIBUTION WIDTH 15.7 % (11.7-14.4)
[2018-12-29 06:39] LABS: INR 1.95; PROTHROMBIN TIME 22.9 seconds (11.9-14.5)
[2018-12-29 06:45] LABS: ANION GAP 9.7 mmol/L (8-16); BLOOD UREA NITROGEN 9 mg/dL (7-26); BUN/CREATININE RATIO 11 (6-25); CALCIUM 8.6 mg/dL (8.4-10.2); CARBON DIOXIDE 26 mmol/L (22-29); CHLORIDE 101 mmol/L (98-107); CREATININE, SERUM 0.85 mg/dL (0.72-1.25); EST GLOMERULAR FILTRATION RATE > 60 ML/MIN (60-); GLUCOSE 85 mg/dL (74-118); POTASSIUM 3.7 mmol/L (3.5-5.1); SODIUM 133 mmol/L (136-145)
--- NOTE | 2018-12-29 07:17 | NUR ---
PATIENT IN BED RESTING WITH EYES CLOSED, NO RESPIRATORY DISTRESS OBSERVED. BRUISES TP BOTH ARMS, HEEL PROTECTOR IN PLACE. BED IN LOWER POSITION, CALL LIGHT AT REACH.
[2018-12-29 07:24] VITALS: BP 135/63
[2018-12-29] MEDS: LEVOTHYROXINE SODIUM 112 MCG TAB PO SCH (07:42)
[2018-12-29 07:55] VITALS: BP 135/63
[2018-12-29] MEDS: FAMOTIDINE 20 MG/2 ML VIAL IV SCH (09:19)
[2018-12-29] MEDS: DOCUSATE SODIUM 100 MG CAP PO SCH (09:19)
[2018-12-29] MEDS: METOPROLOL TARTRATE 25 MG TAB PO SCH (09:20)
[2018-12-29] MEDS: AMLODIPINE BESYLATE 5 MG TAB PO SCH (09:20)
[2018-12-29] MEDS: BALSAM PERU/CASTOR OIL 60 GM OINT...G. TP SCH (09:20)
--- NOTE | 2018-12-29 10:12 | NUR ---
MET W THE PT'S REGARDING PT RETURNING HOME W PENDING SALE TO [facility]. STATES THE PT. IS COMTEMPLATING NOT RETURNING HOME W HOSPICE, BUT SHE NEEDS THE HELP TO MANAGE THE PT AT HOME. THE PT AGREES TO RETURN HOME W HOSPICE. NOTIFIED LAURA BRAY OF PT DC BACK HOME W HOSPICE. STATES THEY WILL NEED AN ORDER TO READMIT TO HOSPICE AND H&P. CM WILL FAX. STATES PENDING SALE TO [facility] WILL ARRANGE AMBULANCE TRANSPORT IN 1 HOUR.
[2018-12-29] MEDS ORDERED: BACTRIM DS TAB1 EACH PO (10:42)
--- NOTE | 2018-12-29 10:52 | NUR ---
HOME HOSPICE DISCHARGE INFORMATION PATIENT HAS BEEN ACCEPTED TO: [facility] ADDRESS: [facility] [id number], [place] [address] OFF: [phone] / FAX: [phone] [id number] DNR: DONE. PT WAS ON SERVICE W [facility] MONEY ADVISOR
[2018-12-29 11:15] VITALS: BP 128/60
--- NOTE | 2018-12-29 11:30 | NUR ---
PATIENT DISCHARGED HOME. DISCHARGE INSTRUCTIONS, PRESCRIPTION, AND FOLLOW UP GIVEN TO PATIENT AND , THEY VERBALIZED UNDERSTANDING. IV TO LEFT UPPER ARM REMOVED WITH TIP INTACT. ALL PERSONAL ITEMS TAKEN WITH PATIENT. HOME WITH [facility], LEFT UNIT ON STRETCHER PER AMBULANCE IN STABLE CONDITION.
[2018-12-29] MEDS ORDERED: FAMOTIDINE 20 MG TAB PO SCH (16:30)
--- NOTE | 2019-01-01 05:58 | Discharge Summary ---
DISCHARGE DIAGNOSES: 1. Urinary tract infection. 2. Malfunctioning of nephrostomy tube. HOSPITAL PROCEDURES: Exchange of nephrostomy tube. HISTORY OF PRESENT ILLNESS AND HOSPITAL COURSE: The patient presented with malfunctioning of nephrostomy tube and it was replaced by Interventional Radiology. He was brought in and placed on IV antibiotics. They noticed sensitive to Bactrim. So, the patient was then sent home with p.o. Bactrim and told to follow with Dr. Laurent in 1 to 2 weeks as well as with me in 1 to 2 weeks. Please see hospital chart for details. MD CARLINE Cheatham/CLAIRE /[id number]
== END 2018-12-29 11:28 | disposition hospice, home (50) | DRG 699 ==
LOC: ER 20:07 → ERHOLD 21:16 → MED/SURG3 22:06
PROVIDERS: ADMIT Internal Medicine; ATTEND Internal Medicine
PROC: 0T25X0Z Change Drainage Device in Kidney, External Approach (ICD-10-PCS; principal; 2018-12-24)
CPT/HCPCS: 36415; 80048; 80053; 83735; 85025; 85610; 87086; 87186; 94640; 97139; 99284; J7040; J7050; J7121

== ENCOUNTER → 2018-12-24 | Day surgery (SDC) | payer MEDICARE ==
[~2018-12-24] VITALS: Ht 170.2 cm; Wt 74.8 kg
[~2018-12-24] MED LIST changes: +BACTRIM DS TAB1 EACH PO; +CEFAZOLIN SOD 1 GM VIAL ONE; +FAMOTIDINE20 MG PO; +FENTANYL CITRATE/PF 100MCG/2 ML INJ ONE; +LIDOCAINE HCL 2% LOCAL 20 ML VIAL ONE; +LOPRESSOR25 MG PO; +MEROPENEM 1GM 100 ML IV SCH; +MEROPENEM 500MG 500 MG in SODIUM CHLORIDE 0.9% 50ML 50 ML IV SCH; +MIDAZOLAM HCL 2 MG/2 ML VIAL ONE; +NORVASC5 MG PO; +ONDANSETRON HCL INJ 2MG/ML 2ML 2 MG/ML VIAL IV PRN; +SENNA LAX8.6 MG; +SODIUM CHLORIDE 0.9% 1000ML 1,000 ML IV SCH; +SODIUM CHLORIDE 0.9% 500ML 1,000 ML ONE; +SODIUM CHLORIDE 0.9% 50ML 50 ML ONE
--- OUTSIDE RECORDS SUMMARY | 2018-12-24 10:35 | XMS REPORT | Summary of Care ---
Author Author [facility] Organization [facility] Address Unknown Phone Unavailable Encounter HQ Melida(MARGOTH) [id number] Date(s): 10/31/18 - 11/18/18 [facility] [id number] [place] [address]- [phone] Discharge Disposition: Intermediate Facility Attending Physician: Reyes Batista MD Admitting Physician: Reyes Batista MD Referring Physician: Davy Skinner MD Vital Signs 1 2 3 Most recent to oldest [Reference Range]: 177.8 cm (11/03/18 9:04 AM) 175.26 cm (11/03/18 7:47 AM) 175.26 cm (11/03/18 2:13 AM) Height 93 kg (11/03/18 9:04 AM) Current Weight 97.3 DegF (11/18/18 12:00 PM) 98.4 DegF (11/18/18 8:00 AM) 98.6 DegF (11/17/18 8:00 PM) Temperature Oral [96.4-99.1 DegF] 129/82 mmHg (11/18/18 2:00 PM) 113/55 mmHg (11/18/18 12:00 PM) 121/69 mmHg (11/18/18 10:00 AM) Blood Pressure [90-140/60-90 mmHg] 19 BRMIN (11/18/18 2:00 PM) 22 BRMIN *HI* (11/18/18 12:00 PM) 18 BRMIN (11/18/18 11:02 AM) Respiratory Rate [14-20 BRMIN] 93.182 kg (10/31/18 10:50 PM) 93.182 kg (10/31/18 10:50 PM) 93.182 kg (10/31/18 10:49 PM) Weight 30.48 m2 (10/31/18 10:47 PM) 25.73 m2 (10/31/18 10:42 PM) Body Mass Index Problem List No data available for this section Allergies, Adverse Reactions, Alerts Substance Reaction Severity Status NKDA Active Medications 1/2 NS 1,000 mL 1,000 mL, Rate: 125 ml/hr, Infuse over: 8 hr, Route: IV, Dosing Weight 93.182 kg , Total Volume: 1,000, Start date: 11/01/18 0:01:00 CYLINDER WORKER, Duration: 30 day, Stop date: 12/01/18 0:00:00 CDT, 2.15, m2 Start Date: 11/01/18 Stop Date: 11/01/18 Status: Discontinued AMIODarone 200 mg, 1 tab, Route: PO, Drug form: TAB, BID, Dosing Weight 93.182, kg, Start d ate: 11/09/18 9:00:00 CYLINDER WORKER, Duration: 30 day, Stop date: 12/08/18 21:00:00 CDT Notes: (Same as: Cordarone) Start Date: 11/09/18 Stop Date: 11/09/18 Status: Canceled AMIODarone 200 mg, 1 tab, Route: OGT, Drug form: TAB, Daily, Dosing Weight 93.182, kg, Star t date: 11/03/18 9:00:00 CYLINDER WORKER, Duration: 30 day, Stop date: 12/02/18 9:00:00 CDT Notes: (Same as: Cordarone) Start Date: 11/03/18 Stop Date: 11/06/18 Status: Discontinued AMIODarone 200 mg, 1 tab, Route: PO, Drug form: TAB, BID, Dosing Weight 93.182, kg, Start d ate: 11/09/18 9:00:00 CYLINDER WORKER, Duration: 30 day, Stop date: 12/08/18 17:00:00 CDT Notes: (Same as: Cordarone) Start Date: 11/09/18 Stop Date: 11/18/18 Status: Discontinued AMIODarone + Dextrose 5% in Water 100 mL 150 mg, 3 mL, Route: IV, ONCE, Dosing Weight 93.182, kg, Start date: 11/06/18 22 :14:00 CYLINDER WORKER, Stop date: 11/06/18 22:14:00 CYLINDER WORKER Notes: Central administration only for concentrations > 2 mg/ml."Recommendation: Use an in-line filter during administration for continuous infusions to reduce the incidence of phlebitis"(Same as Codarone) MEDICATION WASTE Product Size: 150 mgProduct Wasted: ___ mg Start Date: 11/06/18 Stop Date: 11/06/18 Status: Completed AMIODarone 200 mg oral tablet 200 mg=1 tab, PO, BID, 0 Refill(s) Start Date: 11/18/18 Status: Ordered AMIODarone 900 mg in D5W 500 ml IV 900 mg + Dextrose 5% in Water IV 482 mL 900 mg, 18 mL, Rate: 1 mg/min for 6 hours, then reduce to 0.5 mg/min, Dosing Randy ght 93.182, kg, Route: IV, Total Volume: 500, Start Date: 11/06/18 22:14:00 CYLINDER WORKER, Duration: 1 day, Stop date: 11/07/18 22:13:00 CYLINDER WORKER, Replace Every: 24 hr Notes: Central administration only for concentration > 2 mg/ml. Use Glass Bottle or Non PVC Bag"Use 0.22 micron in-line filter" MEDICATION WASTE Product Size: 900 mgProduct Wasted: ___ mg Start Date: 11/06/18 Stop Date: 11/07/18 Status: Completed AMIODarone 900 mg in D5W 500 ml IV 900 mg + Dextrose 5% in Water IV 482 mL 900 mg, 18 mL, Rate: 0.5 mg/min for until 6am. Continuation from previous order. , Dosing Weight 93.182, kg, Route: IV, Total Volume: 500, Start Date: 11/09/18 0 :12:00 CYLINDER WORKER, Duration: 24 hr, Stop date: 11/10/18 0:11:00 CYLINDER WORKER, Replace Every: 24 hr Notes: Central administration only for concentration > 2 mg/ml. Use Glass Bottle or Non PVC Bag"Use 0.22 micron in-line filter" MEDICATION WASTE Product Size: 900 mgProduct Wasted: ___ mg Start Date: 11/09/18 Stop Date: 11/09/18 Status: Discontinued AMIODarone 900 mg in D5W 500 ml IV 900 mg + Dextrose 5% in Water IV 482 mL 900 mg, 18 mL, Rate: 0.5mg/min for 24 hours, Dosing Weight 93.182, kg, Route: IV , Total Volume: 500, Start Date: 11/07/18 22:48:00 CYLINDER WORKER, Duration: 1 day, Stop da te: 11/08/18 22:47:00 CYLINDER WORKER, Replace Every: 24 hr Notes: Central administration only for concentration > 2 mg/ml. Use Glass Bottle or Non PVC Bag"Use 0.22 micron in-line filter" MEDICATION WASTE Product Size: 900 mgProduct Wasted: ___ mg Start Date: 11/07/18 Stop Date: 11/08/18 Status: Completed AMIODarone 900 mg in D5W 500 ml IV 900 mg + Dextrose 5% in Water IV 482 mL 900 mg, 18 mL, Rate: 1 mg/min for 6 hours, then reduce to 0.5 mg/min, Dosing Randy ght 93.182, kg, Route: IV, Total Volume: 500, Start Date: 11/01/18 0:01:00 CYLINDER WORKER, Duration: 30 day, Stop date: 12/01/18 0:00:00 CDT, Replace Every: 24 hr Notes: Central administration only for concentration > 2 mg/ml. Use Glass Bottle or Non PVC Bag"Use 0.22 micron in-line filter" MEDICATION WASTE Product Size: 900 mgProduct Wasted: ___ mg Start Date: 11/01/18 Stop Date: 11/03/18 Status: Discontinued aspirin 81 mg, 1 tab, Route: CHEW, Drug form: CHEWTAB, Daily, Dosing Weight 93.182, kg, Priority: NOW, Start date: 11/01/18 16:09:00 CYLINDER WORKER, Duration: 30 day, Stop date: 0 12/01/18 9:00:00 CDT Notes: Take with food. Start Date: 11/01/18 Stop Date: 11/18/18 Status: Discontinued aspirin 81 mg, 1 tab, Route: PO, Drug form: CHEWTAB, Daily, Dosing Weight 93.182, kg, St art date: 11/01/18 9:00:00 CYLINDER WORKER, Duration: 30 day, Stop date: 11/30/18 9:00:00 CD T Notes: Take with food. Start Date: 11/01/18 Stop Date: 11/01/18 Status: Discontinued aspirin 81 mg tablet, chewable 81 mg=1 tab, CHEW, Daily, 0 Refill(s) Start Date: 11/18/18 Status: Ordered ATTN RN please do not give vanc untill trough is drawn ATTN RN please do not give vanc untill trough is drawn, ATTN RN, Drug form: MISC , Route: MISC, ONCE, 11/03/18 2:00:00 CYLINDER WORKER, Stop date: 11/03/18 2:00:00 CYLINDER WORKER Start Date: 11/03/18 Stop Date: 11/03/18 Status: Completed Bromfed DM oral syrup 10 mL, PO, QID, 0 Refill(s) Start Date: 11/01/18 Stop Date: 11/18/18 Status: Discontinued calcium carbonate 500 mg (200 mg elemental calcium) oral tablet 1,000 mg, 2 tab, Route: PO, Drug form: CHEWTAB, PRN, Dosing Weight 93.182, kg, P RN Abnormal Lab Result, FOR ICU USE ONLY, Start date: 11/01/18 9:32:00 CYLINDER WORKER, Dura tion: 30 day, Stop date: 12/01/18 10:31:00 CDT Notes: (Same As: Nabeels)Calcium Carbonate 500 qq=872 mg elemental calcium Dose=_ mg calcium carbonate ( mg elemental calcium) Start Date: 11/01/18 Stop Date: 11/17/18 Status: Discontinued calcium carbonate 500 mg (200 mg elemental calcium) oral tablet 500 mg, 1 tab, Route: PO, Drug form: CHEWTAB, PRN, Dosing Weight 93.182, kg, PRN Abnormal Lab Result, FOR ICU USE ONLY, Start date: 11/01/18 9:32:00 CYLINDER WORKER, Durati on: 30 day, Stop date: 12/01/18 10:31:00 CDT Notes: (Same As: Tums)Calcium Carbonate 500 lk=577 mg elemental calcium Dose=_ mg calcium carbonate ( mg elemental calcium) Start Date: 11/01/18 Stop Date: 11/17/18 Status: Discontinued calcium carbonate 500 mg (200 mg elemental calcium) oral tablet 500 mg, 1 tab, Route: PO, Drug form: CHEWTAB, PRN, Dosing Weight 93.182, kg, PRN Abnormal Lab Result, FOR ICU USE ONLY, Start date: 11/01/18 0:00:00 CYLINDER WORKER, Durati on: 30 day, Stop date: 12/01/18 0:59:00 CDT Notes: (Same As: Nabeels)Calcium Carbonate 500 ca=102 mg elemental calcium Dose=_ mg calcium carbonate ( mg elemental calcium) Start Date: 11/01/18 Stop Date: 11/04/18 Status: Discontinued calcium carbonate 500 mg (200 mg elemental calcium) oral tablet 1,000 mg, 2 tab, Route: PO, Drug form: CHEWTAB, PRN, Dosing Weight 93.182, kg, P RN Abnormal Lab Result, FOR ICU USE ONLY, Start date: 11/01/18 0:00:00 CYLINDER WORKER, Dura tion: 30 day, Stop date: 12/01/18 0:59:00 CDT Notes: (Same As: Nabeels)Calcium Carbonate 500 qh=988 mg elemental calcium Dose=_ mg calcium carbonate ( mg elemental calcium) Start Date: 11/01/18 Stop Date: 11/04/18 Status: Discontinued calcium gluconate 1 gm, 50 mL, Route: IVPB, Drug form: INJ, PRN, Dosing Weight 93.182, kg, PRN Abn ormal Lab Result, Start date: 11/01/18 0:00:00 CYLINDER WORKER, Duration: 30 day, Stop date: 12/01/18 0:59:00 CDT, FOR ICU USE ONLY Notes: WASTE: F/P - Sink; E - Municipal Trash Bin Start Date: 11/01/18 Stop Date: 11/04/18 Status: Discontinued calcium gluconate + Sodium Chloride 0.9% IV 40 mL 1 gm, 10 mL, Route: IVPB, PRN, Dosing Weight 93.182, kg, PRN Abnormal Lab Result , Start date: 11/01/18 9:32:00 CYLINDER WORKER, Duration: 30 day, Stop date: 12/01/18 10:31: 00 CDT, FOR ICU USE ONLY Notes: WASTE: F/P - Sink; E - Municipal Trash Bin Start Date: 11/01/18 Stop Date: 11/17/18 Status: Discontinued cefepime + Sodium Chloride 0.9% IV 100 mL 1 gm, Route: IVPB, [id number], Dosing Weight 93.182, kg, (CrCl >/=50 ml/min), Start date: 11/04/18 1:00:00 CYLINDER WORKER, Duration: 10 day, Stop date: 11/13/18 13:00:00 CYLINDER WORKER, ABX Indication: Pneumonia Notes: (Same As: Maxipime) MEDICATION WASTE Product Size: 1000 mgProduc t Wasted: ___ mg Start Date: 11/04/18 Stop Date: 11/06/18 Status: Discontinued chlorhexidine topical 0.12% liquid 15 mL, Route: Swab Mouth, PRN, Drug form: LIQ, PRN Other -See Comment, Start tio e: 10/31/18 23:20:00 CYLINDER WORKER, Duration: 30 day, Stop date: 12/01/18 0:19:00 CDT Notes: (Same As: Peridex) Start Date: 10/31/18 Stop Date: 11/04/18 Status: Discontinued chlorhexidine topical 0.12% liquid 15 mL, Route: Swab Mouth, Q12H, Drug form: LIQ, Start date: 11/01/18 9:00:00 CYLINDER WORKER , Duration: 30 day, Stop date: 11/30/18 21:00:00 CDT Notes: (Same As: Peridex) Start Date: 11/01/18 Stop Date: 11/04/18 Status: Discontinued diltiazem 30 mg, 1 tab, Route: PO, Drug form: TAB, Q6H, Dosing Weight 93.182, kg, Start da te: 11/03/18 12:00:00 CYLINDER WORKER, Duration: 30 day, Stop date: 12/03/18 6:00:00 CDT Notes: (Same as: Cardizem) Before meals Start Date: 11/03/18 Stop Date: 11/04/18 Status: Discontinued diltiazem 125 mg in NS 125 mL (Titrate.) IV 125 mg + Sodium Chloride 0.9% IV 100 mL 125 mg, 25 mL, Rate: Titrate, Start Dose: 5 mg/hr, Titration: 5 mg/hr every hour , Goal(s): Maintain HR < 100, Max Dose: 15 mg/hr, Route: IV, Dosing Weight 93.182 kg, Total Volume: 125, Start date: 11/01/18 0:02:00 CYLINDER WORKER, Duration: 30 day, Stop date: ... Notes: (Same as: Cardizem) Start Date: 11/01/18 Stop Date: 11/03/18 Status: Discontinued DuoNeb inhalation solution 3 mL, Route: NEB, Drug Form: SOLN, Dosing Weight 93.182, kg, RQID, Start date: 0 11/06/18 15:00:00 CYLINDER WORKER, Duration: 30 day, Stop date: 12/06/18 11:00:00 CDT Notes: (Same as: Duoneb) Start Date: 11/06/18 Stop Date: 11/18/18 Status: Discontinued DuoNeb inhalation solution 3 ml, Route: NEB, Drug Form: SOLN, Dosing Weight 93.182, kg, PRN, PRN Respirator y Pathway, Start date: 11/05/18 11:50:00 CYLINDER WORKER, Duration: 30 day, Stop date: 12/05 12:49:00 CDT Start Date: 11/05/18 Stop Date: 11/05/18 Status: Deleted DuoNeb inhalation solution 3 ml, Route: NEB, Drug Form: SOLN, Dosing Weight 93.182, kg, PRN, PRN Respirator y Pathway, Start date: 11/05/18 10:07:00 CYLINDER WORKER, Duration: 30 day, Stop date: 12/05 11:06:00 CDT Notes: (Same as: Duoneb) Start Date: 11/05/18 Stop Date: 11/18/18 Status: Discontinued fentaNYL 1250 microgram in NS 250 mL (Titrate.) IV 1,250 microgram 1,250 microgram, 250 mL, Rate: Titrate, Start Dose: 50 microgram/hr, Titration: 25 micrograms/hour every 15 minutes, Goal(s): -2, Max Dose: 300 microgram/hr, [place]: IV, Dosing Weight 93.182 kg, Total Volume: 250, Start date: 10/31/18 23:21: 00 CYLINDER WORKER, Dur... Notes: Concentration: 5 microgram / ml Start Date: 10/31/18 Stop Date: 11/03/18 Status: Discontinued Flagyl 500 mg, 100 mL, Route: IVPB, Drug form: INJ, ABXQ8H, Dosing Weight 93.182, kg, P riority: NOW, Start date: 11/10/18 13:58:00 CYLINDER WORKER, Duration: 10 day, Stop date: 5:58:00 CYLINDER WORKER, ABX Indication: Pneumonia Notes: (Same as: Flagyl) Avoid alcohol. Start Date: 11/10/18 Stop Date: 11/16/18 Status: Discontinued furosemide 20 mg, PO, Daily, 0 Refill(s) Start Date: 11/01/18 Stop Date: 11/18/18 Status: Discontinued furosemide 40 mg oral tablet 40 mg=1 tab, PO, Daily, 0 Refill(s) Start Date: 11/18/18 Status: Ordered guaiFENesin 200 mg, 10 mL, Route: PO, Drug form: LIQ, QID, Dosing Weight 93.182, kg, PRN as needed for cough, Start date: 11/05/18 10:07:00 CYLINDER WORKER, Duration: 30 day, Stop date : 12/05/18 10:06:00 CDT Notes: (Same as: Radha) Start Date: 11/05/18 Stop Date: 11/18/18 Status: Discontinued heparin additive 25,000 unit [14 unit/kg/hr] + Premix Diluent Dextrose 5% 500 mL 500 mL, Rate: 22.31 ml/hr, Infuse over: 22.4 hr, Route: IV, Dosing Weight 79.69 kg, Total Volume: 500 mL, Start date: 11/01/18 9:38:00 CYLINDER WORKER, Duration: 30 day, St op date: 12/01/18 9:37:00 CDT, 1.98, m2 Start Date: 11/01/18 Stop Date: 11/17/18 Status: Discontinued Klor-Con 40 mEq, 2 tab, Route: PO, Drug form: ERTAB, BID, Dosing Weight 93.182, kg, Prior ity: NOW, Start date: 11/07/18 17:03:00 CYLINDER WORKER, Duration: 30 day, Stop date: 17:00:00 CDT Notes: (Same as: K-Dur 20)"Do Not Crush" Give with food and full glass of water For patients unable to swallow tablet, dissolve in one half glass of water. Allo w about 2 minutes for the tablets to disintegrate. Stir before giving to prepare slurry and administer.Please exclude Patients with feeding tube less than 14 Israeli (Dobhoff, J-tube etc) and pediatric and patients. Start Date: 11/07/18 Stop Date: 11/14/18 Status: Discontinued lactulose 10 g/15 mL oral syrup 20 gm, 30 mL, Route: NG, Drug form: SYRP, ONCE, Dosing Weight 93.182, kg, Start date: 11/06/18 17:00:00 CYLINDER WORKER, Stop date: 11/06/18 17:00:00 CYLINDER WORKER Notes: (Same as:Chronulac) Start Date: 11/06/18 Stop Date: 11/06/18 Status: Completed Lasix 40 mg, 1 tab, Route: PO, Drug form: TAB, Daily, Dosing Weight 93.182, kg, Start date: 11/12/18 9:00:00 CYLINDER WORKER, Duration: 30 day, Stop date: 12/11/18 9:00:00 CDT Notes: (Same as: Lasix) May cause GI upset. Give with food or milk. Start Date: 11/12/18 Stop Date: 11/18/18 Status: Discontinued Lasix 40 mg, 4 mL, Route: IVP, Drug form: INJ, Daily, Dosing Weight 93.182, kg, Start date: 11/04/18 9:00:00 CYLINDER WORKER, Duration: 30 day, Stop date: 12/03/18 9:00:00 CDT Notes: (Same as: Lasix) MEDICATION WASTE Product Size: 40 mgProduct Was lorri: ___ mg Start Date: 11/04/18 Stop Date: 11/05/18 Status: Discontinued Lasix 40 mg, 4 mL, Route: IV, Drug form: INJ, BID, Dosing Weight 93.182, kg, Start tio e: 11/05/18 21:00:00 CYLINDER WORKER, Duration: 30 day, Stop date: 12/05/18 17:00:00 CDT Notes: (Same as: Lasix) MEDICATION WASTE Product Size: 40 mgProduct Was lorri: ___ mg Start Date: 11/05/18 Stop Date: 11/09/18 Status: Voided With Results Lasix 40 mg, 1 tab, Route: PO, Drug form: TAB, BID Diuretic, Dosing Weight 93.182, kg, Start date: 11/09/18 16:00:00 CYLINDER WORKER, Duration: 30 day, Stop date: 12/09/18 8:00:00 CDT Notes: (Same as: Lasix) May cause GI upset. Give with food or milk. Start Date: 11/09/18 Stop Date: 11/11/18 Status: Discontinued Lasix 100 mg in 100 ml IV titrate 100 mg + Sodium Chloride 0.9% IV 90 mL 100 mg, 10 mL, Rate: 10 mg/hour, Dosing Weight 93.182, kg, Route: IV, Total Volu me: 100, Start Date: 11/05/18 11:49:00 CYLINDER WORKER, Duration: 30 day, Stop date: 9 11:48:00 CDT, Replace Every: 24 hr, continuous Notes: (Same as: Lasix) MEDICATION WASTE Product Size: 100 mgProduct Wa sted: ___ mg Start Date: 11/05/18 Stop Date: 11/05/18 Status: Discontinued Levaquin 750 mg, 150 mL, Route: IVPB, Drug form: SOLN, [id number], Dosing Weight 93.182, kg, Start date: 11/06/18 13:00:00 CYLINDER WORKER, Duration: 10 day, Stop date: 11/14/18 13:00: 00 CYLINDER WORKER, ABX Indication: Pneumonia Notes: (Same as:Levaquin) Start Date: 11/06/18 Stop Date: 11/14/18 Status: Completed Lipitor 40 mg oral tablet 40 mg=1 tab, PO, Bedtime, # 30 tab, 0 Refill(s), other Start Date: 11/18/18 Status: Ordered lisinopril 2.5 mg oral tablet 2.5 mg=1 tab, PO, Daily, # 30 tab, 0 Refill(s), other Start Date: 11/18/18 Status: Ordered magnesium oxide 800 mg, 2 tab, Route: PO, Drug form: TAB, PRN, Dosing Weight 93.182, kg, PRN Abn ormal Lab Result, FOR ICU USE ONLY, Start date: 11/01/18 9:32:00 CYLINDER WORKER, Duration: 30 day, Stop date: 12/01/18 10:31:00 CDT Notes: (Same as: Mag-Ox 400)Magnesium oxide [id number] elemental magnesiumDose= ____mg magnesium oxide (___mg elemental magnesium) Start Date: 11/01/18 Stop Date: 11/17/18 Status: Discontinued magnesium oxide 800 mg, 2 tab, Route: PO, Drug form: TAB, PRN, Dosing Weight 93.182, kg, PRN Abn ormal Lab Result, FOR ICU USE ONLY, Start date: 11/01/18 0:00:00 CYLINDER WORKER, Duration: 30 day, Stop date: 12/01/18 0:59:00 CDT Notes: (Same as: Mag-Ox 400)Magnesium oxide [id number] elemental magnesiumDose= ____mg magnesium oxide (___mg elemental magnesium) Start Date: 11/01/18 Stop Date: 11/04/18 Status: Discontinued magnesium sulfate 2 gm, 50 mL, Route: IVPB, Drug form: INJ, PRN, Dosing Weight 93.182, kg, PRN Abn ormal Lab Result, Start date: 11/01/18 9:32:00 CYLINDER WORKER, Duration: 30 day, Stop date: 12/01/18 10:31:00 CDT, FOR ICU USE ONLY Notes: WASTE: F/P - Sink; E - Municipal Trash Bin Start Date: 11/01/18 Stop Date: 11/17/18 Status: Discontinued magnesium sulfate 2 gm, 50 mL, Route: IVPB, Drug form: INJ, PRN, Dosing Weight 93.182, kg, PRN Abn ormal Lab Result, Start date: 11/01/18 0:00:00 CYLINDER WORKER, Duration: 30 day, Stop date: 12/01/18 0:59:00 CDT, FOR ICU USE ONLY Notes: WASTE: F/P - Sink; E - Municipal Trash Bin Start Date: 11/01/18 Stop Date: 11/04/18 Status: Discontinued magnesium sulfate 2 gm in Water 50 ml 2 gm, 50 mL, Route: IVPB, Drug form: INJ, ONCE, Dosing Weight 93.182, kg, Start date: 11/06/18 10:03:00 CYLINDER WORKER, Stop date: 11/06/18 10:03:00 CYLINDER WORKER Notes: WASTE: F/P - Sink; E - Municipal Trash Bin Start Date: 11/06/18 Stop Date: 11/06/18 Status: Completed meropenem 500 mg, Route: IVPB, Drug form: PDR/INJ, ABXQ8H, Dosing Weight 93.182, kg, CrCL= 30 -49 ml/min, Extended infusion, infuse over 3 hours, Start date: 11/01/18 1:0 0:00 CYLINDER WORKER, Duration: 7 day, Stop date: 11/07/18 17:00:00 CYLINDER WORKER, ABX Indication: ED - Suspecte... Start Date: 11/01/18 Stop Date: 11/01/18 Status: Canceled meropenem + Sodium Chloride 0.9% IV 100 mL 500 mg, Route: IVPB, ABXQ8H, Dosing Weight 93.182, kg, CrCL=30 -49 ml/min, Exten ded infusion, infuse over 3 hours, Priority: STAT, Start date: 11/01/18 0:04:00 CYLINDER WORKER, Duration: 7 day, Stop date: 11/07/18 16:04:00 CYLINDER WORKER, ABX Indication: ED - Cardoza spected Se... Notes: Same as Merrem MEDICATION WASTE Product Size: 500 mgProduct Wast ed: ___ mg Start Date: 11/01/18 Stop Date: 11/04/18 Status: Discontinued metoprolol tartrate 50 mg, PO, Q12H, 0 Refill(s) Start Date: 11/01/18 Stop Date: 11/18/18 Status: Discontinued metoprolol tartrate 12.5 mg, 0.5 tab, Route: PO, Drug form: TAB, Q12H, Dosing Weight 93.182, kg, Sta rt date: 11/04/18 9:00:00 CYLINDER WORKER, Duration: 30 day, Stop date: 12/03/18 21:00:00 CD T Notes: (Same as: Lopressor) Start Date: 11/04/18 Stop Date: 11/18/18 Status: Discontinued metoprolol tartrate 25 mg oral tablet 12.5 mg=0.5 tab, PO, Q12H, 0 Refill(s) Start Date: 11/18/18 Status: Ordered midodrine 10 mg, 2 tab, Route: PO, Drug form: TAB, TID, Dosing Weight 93.182, kg, Priority : NOW, Start date: 11/13/18 14:46:00 CYLINDER WORKER, Duration: 30 day, Stop date: 12/13/18 13:00:00 CDT Notes: (Same as:Proamatine) Start Date: 11/13/18 Stop Date: 11/17/18 Status: Discontinued mupirocin topical 1 appl, Route: NASAL, Q12H, Drug form: OINT, Start date: 11/01/18 21:00:00 CYLINDER WORKER, Duration: 5 day, Stop date: 11/06/18 9:00:00 CYLINDER WORKER, MRSA Decolonization Start Date: 11/01/18 Stop Date: 11/06/18 Status: Completed normal saline 0.9% IV 500 mL 500 mL, Rate: 999 ml/hr, Infuse over: 0.5 hr, Route: IV, Dosing Weight 93.182 kg , Total Volume: 500, Start date: 11/14/18 16:47:00 CYLINDER WORKER, Duration: 1 doses or jack es, Stop date: 11/14/18 17:16:00 CYLINDER WORKER, 2.16, m2 Start Date: 11/14/18 Stop Date: 11/14/18 Status: Completed ocular lubricant 1 appl, Route: BOTH EYES, Q6H, Drug form: SOLN, Start date: 11/01/18 0:00:00 CYLINDER WORKER , Duration: 30 day, Stop date: 11/30/18 18:00:00 CDT Notes: (Same as: Aquasite) Start Date: 11/01/18 Stop Date: 11/04/18 Status: Discontinued Pepcid 20 mg, 2 mL, Route: IVP, Drug form: INJ, Q12H, Dosing Weight 93.182, kg, Start d ate: 11/01/18 9:00:00 CYLINDER WORKER, Duration: 30 day, Stop date: 11/30/18 21:00:00 CDT Notes: (Same as: Pepcid)Can be dilute in 5-10cc NS IVP: Slow IV push over at le ast 2 minutes. Start Date: 11/01/18 Stop Date: 11/04/18 Status: Discontinued Phenergan + Sodium Chloride 0.9% IV 50 mL 25 mg, 1 mL, Route: IVPB, Q4H, Dosing Weight 93.182, kg, PRN Nausea & Vomiting, Start date: 11/10/18 12:36:00 CYLINDER WORKER, Duration: 30 day, Stop date: 12/10/18 12:35:00 CDT Notes: Do not give IV push. (Same as: Phenergan) Start Date: 11/10/18 Stop Date: 11/18/18 Status: Discontinued potassium chloride 20 mEq, 100 mL, Route: IVPB, Drug form: INJ, PRN, Dosing Weight 93.182, kg, PRN Abnormal Lab Result, Via central line, Start date: 11/01/18 9:32:00 CYLINDER WORKER, Duratio n: 30 day, Stop date: 12/01/18 10:31:00 CDT, FOR ICU USE ONLY Notes: (Same as: KCL) Infuse no faster than 10 mEq/hr if given peripherally. Start Date: 11/01/18 Stop Date: 11/17/18 Status: Discontinued potassium chloride 20 mEq, 1 tab, Route: PO, Drug form: ERTAB, PRN, Dosing Weight 93.182, kg, PRN A bnormal Lab Result, Start date: 11/01/18 9:32:00 CYLINDER WORKER, Duration: 30 day, Stop tio e: 12/01/18 10:31:00 CDT, FOR ICU USE ONLY Notes: (Same as: K-Dur 20)"Do Not Crush" Give with food and full glass of water For patients unable to swallow tablet, dissolve in one half glass of water. Allo w about 2 minutes for the tablets to disintegrate. Stir before giving to prepare slurry and administer.Please exclude Patients with feeding tube less than 14 Israeli (Dobhoff, J-tube etc) and pediatric and patients. Start Date: 11/01/18 Stop Date: 11/17/18 Status: Discontinued potassium chloride 10 mEq, 100 mL, Route: IVPB, Drug form: INJ, PRN, Dosing Weight 93.182, kg, PRN Abnormal Lab Result, Via peripheral line, Start date: 11/01/18 9:32:00 CYLINDER WORKER, Dura tion: 30 day, Stop date: 12/01/18 10:31:00 CDT, FOR ICU USE ONLY Notes: Infuse at a rate of 10 mEq/hr.(Same as: KCL) Start Date: 11/01/18 Stop Date: 11/17/18 Status: Discontinued potassium chloride 20 mEq, 15 mL, Route: NJ, Drug form: LIQ, PRN, Dosing Weight 93.182, kg, PRN Abn ormal Lab Result, Start date: 11/01/18 9:32:00 CYLINDER WORKER, Duration: 30 day, Stop date: 12/01/18 10:31:00 CDT, FOR ICU USE ONLY Notes: (Same as: Potassium Chloride) Start Date: 11/01/18 Stop Date: 11/17/18 Status: Discontinued potassium chloride 40 mEq, 2 tab, Route: NG, Drug form: ERTAB, ONCE, Dosing Weight 93.182, kg, Star t date: 11/07/18 16:09:00 [employer], Stop date: 11/07/18 16:09:00 [employer] WORK[employer] Notes: (Same as: K-Dur 20)"Do Not Crush" Give with food and full glass of water Start Date: 11/07/18 Stop Date: 11/07/18 Status: Completed potassium chloride 20 mEq, 15 mL, Route: NJ, Drug form: LIQ, PRN, Dosing Weight 93.182, kg, PRN Abn ormal Lab Result, Start date: 11/01/18 0:00:00 [employer], Duration: 30 day, Stop date: 12/01/18 0:59:00 CDT, FOR ICU USE ONLY Notes: (Same as: Potassium Chloride) Start Date: 11/01/18 Stop Date: 11/04/18 Status: Discontinued potassium chloride 20 mEq, 100 mL, Route: IVPB, Drug form: INJ, PRN, Dosing Weight 93.182, kg, PRN Abnormal Lab Result, Via central line, 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 Start Date: 11/01/18 Stop Date: 11/04/18 Status: Discontinued potassium chloride 10 mEq, 100 mL, Route: IVPB, Drug form: INJ, PRN, Dosing Weight 93.182, kg, PRN Abnormal Lab Result, Via peripheral line, Start date: 11/01/18 0:00:00 CYLINDER WORKER, Dura tion: 30 day, Stop date: 12/01/18 0:59:00 CDT, FOR ICU USE ONLY Notes: Infuse at a rate of 10 mEq/hr.(Same as: KCL) Start Date: 11/01/18 Stop Date: 11/04/18 Status: Discontinued potassium chloride 20 mEq, 1 tab, Route: PO, Drug form: ERTAB, PRN, Dosing Weight 93.182, kg, PRN A bnormal Lab Result, Start date: 11/01/18 0:00:00 CYLINDER WORKER, Duration: 30 day, Stop tio e: 12/01/18 0:59:00 CDT, FOR ICU USE ONLY Notes: (Same as: K-Dur 20)"Do Not Crush" Give with food and full glass of water For patients unable to swallow tablet, dissolve in one half glass of water. Allo w about 2 minutes for the tablets to disintegrate. Stir before giving to prepare slurry and administer.Please exclude Patients with feeding tube less than 14 Israeli (Dobhoff, J-tube etc) and pediatric and patients. Start Date: 11/01/18 Stop Date: 11/04/18 Status: Discontinued potassium phosphate + Sodium Chloride 0.9% IV 250 mL 15 mmol, 5 mL, Route: IVPB, PRN, Dosing Weight 93.182, kg, PRN Abnormal Lab Resu lt, Start date: 11/01/18 9:32:00 CYLINDER WORKER, Duration: 30 day, Stop date: 12/01/18 10:3 1:00 CDT, FOR ICU USE ONLY Notes: (Same as: K Phosphate.)Do not infuse phosphorous concurrently in the same line as TPN or IVF that contains calcium. For double lumen central lines, phosp horous may be infused in a separate lumen from TPN. 1 mMol phoshate has 1.47 mE q potassium Infuse over 4 hours Start Date: 11/01/18 Stop Date: 11/17/18 Status: Discontinued potassium phosphate + Sodium Chloride 0.9% IV 250 mL 45 mmol, 15 mL, Route: IVPB, PRN, Dosing Weight 93.182, kg, PRN Abnormal Lab Res ult, Start date: 11/01/18 9:32:00 CYLINDER WORKER, Duration: 30 day, Stop date: 12/01/18 10: 31:00 CDT, FOR ICU USE ONLY Notes: (Same as: K Phosphate.)Do not infuse phosphorous concurrently in the same line as TPN or IVF that contains calcium. For double lumen central lines, phosp horous may be infused in a separate lumen from TPN. 1 mMol phoshate has 1.47 mE q potassium Infuse over 4 hours Start Date: 11/01/18 Stop Date: 11/17/18 Status: Discontinued potassium phosphate + Sodium Chloride 0.9% IV 250 mL 30 mmol, 10 mL, Route: IVPB, PRN, Dosing Weight 93.182, kg, PRN Abnormal Lab Res ult, Start date: 11/01/18 9:32:00 CYLINDER WORKER, Duration: 30 day, Stop date: 12/01/18 10: 31:00 CDT, FOR ICU USE ONLY Notes: (Same as: K Phosphate.)Do not infuse phosphorous concurrently in the same line as TPN or IVF that contains calcium. For double lumen central lines, phosp horous may be infused in a separate lumen from TPN. 1 mMol phoshate has 1.47 mE q potassium Infuse over 4 hours Start Date: 11/01/18 Stop Date: 11/17/18 Status: Discontinued potassium phosphate + Sodium Chloride 0.9% IV 250 mL 45 mmol, 15 mL, Route: IVPB, PRN, Dosing Weight 93.182, kg, PRN Abnormal Lab Res ult, Start date: 11/01/18 0:00:00 CYLINDER WORKER, Duration: 30 day, Stop date: 12/01/18 0:5 9:00 CDT, FOR ICU USE ONLY Notes: (Same as: K Phosphate.)Do not infuse phosphorous concurrently in the same line as TPN or IVF that contains calcium. For double lumen central lines, phosp horous may be infused in a separate lumen from TPN. 1 mMol phoshate has 1.47 mE q potassium Infuse over 4 hours Start Date: 11/01/18 Stop Date: 11/04/18 Status: Discontinued potassium phosphate + Sodium Chloride 0.9% IV 250 mL 15 mmol, 5 mL, Route: IVPB, PRN, Dosing Weight 93.182, kg, PRN Abnormal Lab Resu lt, Start date: 11/01/18 0:00:00 CYLINDER WORKER, Duration: 30 day, Stop date: 12/01/18 0:59 :00 CDT, FOR ICU USE ONLY Notes: (Same as: K Phosphate.)Do not infuse phosphorous concurrently in the same line as TPN or IVF that contains calcium. For double lumen central lines, phosp horous may be infused in a separate lumen from TPN. 1 mMol phoshate has 1.47 mE q potassium Infuse over 4 hours Start Date: 11/01/18 Stop Date: 11/04/18 Status: Discontinued potassium phosphate + Sodium Chloride 0.9% IV 250 mL 30 mmol, 10 mL, Route: IVPB, PRN, Dosing Weight 93.182, kg, PRN Abnormal Lab Res ult, Start date: 11/01/18 0:00:00 CYLINDER WORKER, Duration: 30 day, Stop date: 12/01/18 0:5 9:00 CDT, FOR ICU USE ONLY Notes: (Same as: K Phosphate.)Do not infuse phosphorous concurrently in the same line as TPN or IVF that contains calcium. For double lumen central lines, phosp horous may be infused in a separate lumen from TPN. 1 mMol phoshate has 1.47 mE q potassium Infuse over 4 hours Start Date: 11/01/18 Stop Date: 11/04/18 Status: Discontinued potassium phosphate-sodium phosphate 250 mg-280 mg-160 mg oral powder for recons titution 2 pkt, Route: PO, Drug Form: PDR/REC, Dosing Weight 93.182, kg, PRN, PRN Abnorma l Lab Result, FOR ICU USE ONLY, Start date: 11/01/18 9:32:00 CYLINDER WORKER, Duration: 30 d ay, Stop date: 12/01/18 10:31:00 CDT Notes: (Same as: Phos-NaK) Each 1.5 gm pkt has 250mg phosphorous. Mix w/2.5oz w ater and stir. Start Date: 11/01/18 Stop Date: 11/17/18 Status: Discontinued potassium phosphate-sodium phosphate 250 mg-280 mg-160 mg oral powder for recons titution 2 pkt, Route: PO, Drug Form: PDR/REC, Dosing Weight 93.182, kg, PRN, PRN Abnorma l Lab Result, FOR ICU USE ONLY, Start date: 11/01/18 0:00:00 CYLINDER WORKER, Duration: 30 d ay, Stop date: 12/01/18 0:59:00 CDT Notes: (Same as: Phos-NaK) Each 1.5 gm pkt has 250mg phosphorous. Mix w/2.5oz w ater and stir. Start Date: 11/01/18 Stop Date: 11/04/18 Status: Discontinued Pulmicort Respules 0.5 mg/2 mL inhalation suspension 0.5 mg, 2 mL, Route: NEB, Drug form: SUSP, RBID, Dosing Weight 93.182, kg, Start date: 11/05/18 20:00:00 CYLINDER WORKER, Duration: 30 day, Stop date: 12/05/18 8:00:00 CDT Notes: (Same As: Pulmicort) Start Date: 11/05/18 Stop Date: 11/18/18 Status: Discontinued remove patch 1 patch, Route: TOP, Drug form: ERFILM, Q72H, Start date: 11/13/18 13:00:00 CYLINDER WORKER, Duration: 30 day, Stop date: 12/10/18 13:00:00 CDT Start Date: 11/13/18 Stop Date: 11/18/18 Status: Discontinued scopolamine 1.5 mg transdermal film 1 patch, Route: TOP, Drug Form: ERFILM, Dosing Weight 93.182, kg, Q72H, Start da te: 11/10/18 13:00:00 CYLINDER WORKER, Duration: 30 day, Stop date: 12/07/18 13:00:00 CDT Notes: (Same as: Transderm-Scop) Start Date: 11/10/18 Stop Date: 11/18/18 Status: Discontinued sodium bicarbonate 8.4% 100 mEq, 100 mL, Route: IVP, Drug Form: INJ, Dosing Weight 93.182, kg, ONCE, Sta rt date: 11/01/18 3:45:00 CYLINDER WORKER, Stop date: 11/01/18 3:45:00 CYLINDER WORKER Notes: (sodium bicarb 8.4% (1 mEq/ml) 50 ml syringe) Start Date: 11/01/18 Stop Date: 11/01/18 Status: Completed sodium bicarbonate 8.4% additive 150 mEq + sterile water 1,000 mL 1,000 mL, Rate: 100 ml/hr, Infuse over: 11.5 hr, Dosing Weight 93.182, kg, Route : IV, Total Volume: 1,150, Start Date: 11/01/18 9:27:00 CYLINDER WORKER, Duration: 30 day, S top date: 12/01/18 9:26:00 CDT, Replace Every: 11.5 hr Notes: (sodium bicarb 8.4% (1 mEq/ml) 50 ml VL) Start Date: 11/01/18 Stop Date: 11/02/18 Status: Discontinued Sodium Chloride 0.9% (titrate) 250 mL 250 mL, Rate: To prime line and flush remaining blood products., Dosing Weight 9 3.182, kg, Route: IV, Total Volume: 250, Priority: Routine, Start Date: 11/17/18 14:19:00 CYLINDER WORKER, Duration: 30 day, Stop date: 12/17/18 15:18:00 CDT, Replace Every: 24 hr Start Date: 11/17/18 Stop Date: 11/17/18 Status: Discontinued sodium phosphate + Dextrose 5% in Water IV 250 mL 15 mmol, 5 mL, Route: IVPB, PRN, Dosing Weight 93.182, kg, PRN Abnormal Lab Resu lt, Start date: 11/01/18 9:32:00 CYLINDER WORKER, Duration: 30 day, Stop date: 12/01/18 10:3 1:00 CDT, FOR ICU USE ONLY Notes: Infuse over 4 hour. Do not infuse phosphorous concurrently in the same li ne as TPN or IVF that contains calcium. For double lumen central lines, phosphor ous may be infused in a separate lumen from TPN. Start Date: 11/01/18 Stop Date: 11/17/18 Status: Discontinued sodium phosphate + Dextrose 5% in Water IV 250 mL 30 mmol, 10 mL, Route: IVPB, PRN, Dosing Weight 93.182, kg, PRN Abnormal Lab Res ult, Start date: 11/01/18 9:32:00 CYLINDER WORKER, Duration: 30 day, Stop date: 12/01/18 10: 31:00 CDT, FOR ICU USE ONLY Notes: Infuse over 4 hour. Do not infuse phosphorous concurrently in the same li ne as TPN or IVF that contains calcium. For double lumen central lines, phosphor ous may be infused in a separate lumen from TPN. Start Date: 11/01/18 Stop Date: 11/17/18 Status: Discontinued sodium phosphate + Dextrose 5% in Water IV 250 mL 45 mmol, 15 mL, Route: IVPB, PRN, Dosing Weight 93.182, kg, PRN Abnormal Lab Res ult, Start date: 11/01/18 9:32:00 CYLINDER WORKER, Duration: 30 day, Stop date: 12/01/18 10: 31:00 CDT, FOR ICU USE ONLY Notes: Infuse over 4 hour. Do not infuse phosphorous concurrently in the same li ne as TPN or IVF that contains calcium. For double lumen central lines, phosphor ous may be infused in a separate lumen from TPN. Start Date: 11/01/18 Stop Date: 11/17/18 Status: Discontinued sodium phosphate + Dextrose 5% in Water IV 250 mL 15 mmol, 5 mL, Route: IVPB, PRN, Dosing Weight 93.182, kg, PRN Abnormal Lab Resu lt, Start date: 11/01/18 0:00:00 CYLINDER WORKER, Duration: 30 day, Stop date: 12/01/18 0:59 :00 CDT, FOR ICU USE ONLY Notes: Infuse over 4 hour. Do not infuse phosphorous concurrently in the same li ne as TPN or IVF that contains calcium. For double lumen central lines, phosphor ous may be infused in a separate lumen from TPN. Start Date: 11/01/18 Stop Date: 11/04/18 Status: Discontinued sodium phosphate + Dextrose 5% in Water IV 250 mL 30 mmol, 10 mL, Route: IVPB, PRN, Dosing Weight 93.182, kg, PRN Abnormal Lab Res ult, Start date: 11/01/18 0:00:00 CYLINDER WORKER, Duration: 30 day, Stop date: 12/01/18 0:5 9:00 CDT, FOR ICU USE ONLY Notes: Infuse over 4 hour. Do not infuse phosphorous concurrently in the same li ne as TPN or IVF that contains calcium. For double lumen central lines, phosphor ous may be infused in a separate lumen from TPN. Start Date: 11/01/18 Stop Date: 11/04/18 Status: Discontinued sodium phosphate + Dextrose 5% in Water IV 250 mL 45 mmol, 15 mL, Route: IVPB, PRN, Dosing Weight 93.182, kg, PRN Abnormal Lab Res ult, Start date: 11/01/18 0:00:00 CYLINDER WORKER, Duration: 30 day, Stop date: 12/01/18 0:5 9:00 CDT, FOR ICU USE ONLY Notes: Infuse over 4 hour. Do not infuse phosphorous concurrently in the same li ne as TPN or IVF that contains calcium. For double lumen central lines, phosphor ous may be infused in a separate lumen from TPN. Start Date: 11/01/18 Stop Date: 11/04/18 Status: Discontinued tramadol 50 mg, PO, Q6H, PRN Pain, # 20 tab, 0 Refill(s) Start Date: 11/01/18 Stop Date: 11/18/18 Status: Discontinued trazodone 50 mg, PO, Bedtime, 0 Refill(s) Start Date: 11/01/18 Stop Date: 11/18/18 Status: Discontinued vancomycin 125 mg, 2.5 mL, Route: PO, Drug form: SOLN, [id number], Dosing Weight 93.182, kg, St art date: 11/01/18 0:00:00 CYLINDER WORKER, Duration: 10 day, Stop date: 11/10/18 18:00:[address], ABX Indication: Infectious Diarrhea Notes: TIME CRITICAL MEDICATIONConcentration=50 mg/ml. Keep in refrigerator. F or oral use only. Vancomycin 1gm vial are used and reconstituted with 20ml of s terile water for a concentration of 50mg/ml. Draw up in nola po syringes. DO N OT USE IV SYRINGES. Start Date: 11/01/18 Stop Date: 11/01/18 Status: Discontinued vancomycin + Sodium Chloride 0.9% IV 250 mL 1,000 mg, Route: IVPB, [id number], Start date: 11/02/18 3:00:00 CYLINDER WORKER, Duration: 30 d ay, Stop date: 12/01/18 3:00:00 CDT, ABX Indication: ED - Suspected Sepsis Notes: TIME CRITICAL MEDICATION(Same As: Vancocin)Infusion rate< 1000 mg: infuse over 1 [id number] - 1500 mg: infuse over 1.5 [id number] - 2000 mg: infuse over 2 hours> 2001 mg: infuse over 2.5 hoursFor adult patients only: Round to nearest 250 mg per Medical Staff approval MEDICATION WASTE Product Size: 1000 mgProduct Wasted: ___ mg Start Date: 11/02/18 Stop Date: 11/04/18 Status: Discontinued vancomycin + Sodium Chloride 0.9% IV 500 mL 2,500 mg, Route: IVPB, ONCE, Start date: 11/01/18 2:33:00 CYLINDER WORKER, Stop date: 2:33:00 CYLINDER WORKER, ABX Indication: ED - Suspected Sepsis Notes: TIME CRITICAL MEDICATION(Same As: Vancocin)Infusion rate< 1000 mg: infuse over 1 [id number] - 1500 mg: infuse over 1.5 [id number] - 2000 mg: infuse over 2 hours> 2001 mg: infuse over 2.5 hoursFor adult patients only: Round to nearest 250 mg per Medical Staff approval MEDICATION WASTE Product Size: 1000 mgProduct Wasted: ___ mg Start Date: 11/01/18 Stop Date: 11/01/18 Status: Completed Vancomycin Pharmacy Dosing 1 ea, Route: MISC, ONCALL, Dosing Weight 93.182, kg, Start date: 11/01/18 1:00:0 0 CYLINDER WORKER, Duration: 10 day, Stop date: 11/11/18 0:59:00 CYLINDER WORKER, Pharmacy to dose, ABX Indication: ED - Suspected Sepsis Start Date: 11/01/18 Stop Date: 11/01/18 Status: Discontinued vasopressin 20 unit in NS 100 mL IV 20 unit 20 unit, 100 mL, Rate: 0.03 unit/min, Start Dose: 0.03 unit/min, Titration: DO N OT TITRATE, Goal(s): MAP >=65 mmHg, Max Dose: 0.03 unit/min, Route: IV, Dosing Weight 93.182 kg, Total Volume: 100 For Sepsis, Start date: 11/01/18 3:45:00 CYLINDER WORKER, Duration... Notes: (Same As: Vasostrict) Start Date: 11/01/18 Stop Date: 11/02/18 Status: Discontinued warfarin 3 mg, 3 tab, Route: PO, Drug form: TAB, Q5PM, Dosing Weight 93.182, kg, Start da te: 11/04/18 17:00:00 CYLINDER WORKER, Duration: 30 day, Stop date: 12/03/18 17:00:00 CDT Notes: Nurse to ensure documentation of patient education per anticoagulation po licy.Avoid large intake of vitamin-K containing foods diet.(Same As: Coumadin)[place]: F/P - P Waste Black; E - P Waste Black Start Date: 11/04/18 Stop Date: 11/18/18 Status: Discontinued warfarin 2 mg, PO, Daily, 0 Refill(s) Start Date: 11/01/18 Stop Date: 11/18/18 Status: Discontinued warfarin 1 mg oral tablet 3 mg=3 tab, PO, Q5PM, 0 Refill(s) Start Date: 11/18/18 Status: Ordered Zofran 4 mg, 2 mL, Route: IV, Drug form: INJ, Q6H, Dosing Weight 93.182, kg, PRN Nausea , Start date: 11/10/18 12:04:00 CYLINDER WORKER, Duration: 30 day, Stop date: 12/10/18 12:03 :00 CDT Notes: (Same as: Zofran) MEDICATION WASTE Product Size: 4 mgProduct Was lorri: ___ mg Start Date: 11/10/18 Stop Date: 11/18/18 Status: Discontinued Results ELECTROLYTES 1 2 3 Most recent to oldest [Reference Range]: 142 mEq/L (11/17/18 2:52 AM) 142 mEq/L (11/16/18 6:17 AM) 140 mEq/L (11/15/18 3:14 AM) Sodium Lvl [135-145 mEq/L] 3.6 mEq/L (11/17/18 2:52 AM) 4.0 mEq/L (11/16/18 6:17 AM) 4.3 mEq/L (11/15/18 3:14 AM) Potassium Lvl [3.5-5.1 mEq/L] 107 mEq/L (11/17/18 2:52 AM) 106 mEq/L (11/16/18 6:17 AM) 106 mEq/L (11/15/18 3:14 AM) Chloride Lvl [95-109 mEq/L] 30 mEq/L (11/17/18 2:52 AM) 28 mEq/L (11/16/18 6:17 AM) 28 mEq/L (11/15/18 3:14 AM) CO2 [24-32 mEq/L] 8.6 mEq/L *LOW* (11/17/18 2:52 AM) 12.0 mEq/L (11/16/18 6:17 AM) 10.3 mEq/L (11/15/18 3:14 AM) AGAP [10.0-20.0 mEq/L] CHEM PANEL 1 2 3 Most recent to oldest [Reference Range]: 2.23 mg/dL *HI* (11/17/18 2:52 AM) 2.33 mg/dL *HI* (11/16/18 6:17 AM) 2.27 mg/dL *HI* (11/15/18 3:14 AM) Creatinine Lvl [0.50-1.40 mg/dL] 26 mL/min/1.73m2 1 *NA* (11/17/18 2:52 AM) 24 mL/min/1.73m2 2 *NA* (11/16/18 6:17 AM) 25 mL/min/1.73m2 3 *NA* (11/15/18 3:14 AM) eGFR 47 mg/dL *HI* (11/17/18 2:52 AM) 50 mg/dL *HI* (11/16/18 6:17 AM) 52 mg/dL *HI* (11/15/18 3:14 AM) BUN [7-22 mg/dL] 27 *HI* (11/07/18 4:15 AM) 27 *HI* (11/06/18 2:46 AM) 12 (11/01/18 3:56 AM) B/C Ratio [6-25] 111 mg/dL *HI* (11/17/18 2:52 AM) 121 mg/dL *HI* (11/16/18 6:17 AM) 108 mg/dL *HI* (11/15/18 3:14 AM) Glucose Lvl [70-99 mg/dL] 5.9 g/dL *LOW* (11/07/18 4:15 AM) 5.5 g/dL *LOW* (11/06/18 2:46 AM) 7.1 g/dL (11/01/18 3:56 AM) Total Protein [6.4-8.4 g/dL] 2.2 g/dL *LOW* (11/07/18 4:15 AM) 2.0 g/dL *LOW* (11/06/18 2:46 AM) 2.8 g/dL *LOW* (11/01/18 3:56 AM) Albumin Lvl [3.5-5.0 g/dL] 3.7 g/dL (11/07/18 4:15 AM) 3.5 g/dL (11/06/18 2:46 AM) 4.3 g/dL *HI* (11/01/18 3:56 AM) Globulin [2.7-4.2 g/dL] 0.6 *LOW* (11/07/18 4:15 AM) 0.6 *LOW* (11/06/18 2:46 AM) 0.7 (11/01/18 3:56 AM) A/G Ratio [0.7-1.6] 8.0 mg/dL *LOW* (11/17/18 2:52 AM) 8.2 mg/dL *LOW* (11/16/18 6:17 AM) 8.4 mg/dL *LOW* (11/15/18 3:14 AM) Calcium Lvl [8.5-10.5 mg/dL] 5.2 mg/dL *HI* (11/11/18 2:50 AM) 3.4 mg/dL (11/01/18 3:56 AM) 3.0 mg/dL (10/31/18 11:09 PM) Phosphorus [2.5-4.5 mg/dL] 2.3 mg/dL (11/11/18 2:50 AM) 1.8 mg/dL (11/09/18 11:44 PM) 1.9 mg/dL (11/08/18 4:56 AM) Magnesium Lvl [1.8-2.4 mg/dL] 39 unit/L (11/07/18 4:15 AM) 33 unit/L (11/06/18 2:46 AM) 20 unit/L (11/01/18 3:56 AM) ALT [0-65 unit/L] 57 unit/L *HI* (11/07/18 4:15 AM) 45 unit/L *HI* (11/06/18 2:46 AM) 36 unit/L (11/01/18 3:56 AM) AST [0-37 unit/L] 67 unit/L (11/07/18 4:15 AM) 62 unit/L (11/06/18 2:46 AM) 70 unit/L (11/01/18 3:56 AM) Alk Phos [39-136 unit/L] 0.7 mg/dL (11/07/18 4:15 AM) 0.6 mg/dL (11/06/18 2:46 AM) 0.9 mg/dL (11/01/18 3:56 AM) Bili Total [0.2-1.3 mg/dL] 7.4 mMol/L 4 *CRIT* (11/01/18 7:34 AM) 7.9 mMol/L 5 *CRIT* (11/01/18 3:56 AM) 7.2 mMol/L 6 *CRIT* (11/01/18 12:19 AM) Lactic Acid Lvl [0.5-2.2 mMol/L] 0.45 ng/mL *HI* (11/12/18 4:38 AM) 1.28 ng/mL *HI* (11/06/18 2:46 AM) Procalcitonin Lvl [0.00-0.10 ng/mL] 1Result Comment: The eGFR is calculated using the CKD-EPI formula. In most young, healthy individuals the eGFR will be >90 mL/min/1.73m2. The eGFR declines with age. An eGFR of 60-89 may be normal in some populations, particularly the elderly, for whom the CKD-EPI formula has not been extensively validated. Use of the eGFR is not recommended in the following populations: Individuals with unstable creatinine concentrations, including patients and those with serious co-morbid conditions. Patients with extremes in muscle mass or diet. The data above are obtained from the National Kidney Disease Education Program ( NK[employer]) which additionally recommends that when the eGFR is used in patients with extremes of body mass index for purposes of drug dosing, the eGFR should be mul tiplied by the estimated BMI. 2Result Comment: The eGFR is calculated using the CKD-EPI formula. In most young, healthy individuals the eGFR will be >90 mL/min/1.73m2. The eGFR declines with age. An eGFR of 60-89 may be normal in some populations, particularly the elderly, for whom the CKD-EPI formula has not been extensively validated. Use of the eGFR is not recommended in the following populations: Individuals with unstable creatinine concentrations, including patients and those with serious co-morbid conditions. Patients with extremes in muscle mass or diet. The data above are obtained from the National Kidney Disease Education Program ( NKDEP) which additionally recommends that when the eGFR is used in patients with extremes of body mass index for purposes of drug dosing, the eGFR should be mul tiplied by the estimated BMI. 3Result Comment: The eGFR is calculated using the CKD-EPI formula. In most young, healthy individuals the eGFR will be >90 mL/min/1.73m2. The eGFR declines with age. An eGFR of 60-89 may be normal in some populations, particularly the elderly, for whom the CKD-EPI formula has not been extensively validated. Use of the eGFR is not recommended in the following populations: Individuals with unstable creatinine concentrations, including patients and those with serious co-morbid conditions. Patients with extremes in muscle mass or diet. The data above are obtained from the National Kidney Disease Education Program ( NKDEP) which additionally recommends that when the eGFR is used in patients with extremes of body mass index for purposes of drug dosing, the eGFR should be mul tiplied by the estimated BMI. 4Result Comment: Critical Result(s) called to nirmal gill at 11/01/2018 08:26 by BP. Read back OK. 5Result Comment: Critical Result(s) called to RN. Nika Raymundo at 11/01/2018 04:40 by drt. Read back OK. 6Result Comment: Critical Result(s) called to RN. Claudia Gruber at 11/01/2018 01:07 by drt. Read back OK. CARDIAC ENZYMES 1 2 3 Most recent to oldest [Reference Range]: 1.50 ng/mL 1 *CRIT* (11/18/18 1:58 AM) 1.90 ng/mL 2 *CRIT* (11/17/18 7:56 PM) 2.10 ng/mL 3 *CRIT* (11/17/18 2:42 PM) Troponin-I [0.00-0.40 ng/mL] 195 pg/mL *HI* (11/11/18 2:50 AM) BNP [<=100 pg/mL] 1Result Comment: Critical Result(s) called to pancho culp at 11/18/2018 02:50 byjw. Read back OK. 2Result Comment: Critical Result(s) called to Pancho Hutton at 11/17/2018 21:04 by blanka. Read back OK. 3Result Comment: Critical Result(s) called to Tonia Benavides at 11/17/2018 15:30 by blanka. Read back OK. TOXICOLOGY 1 2 3 Most recent to oldest [Reference Range]: 0300 *NA* (11/03/18 2:12 AM) Vanco Tr TND 19.5 ug/ml *NA* (11/03/18 2:12 AM) Vanco Tr ENDOCRINOLOGY 1 2 3 Most recent to oldest [Reference Range]: 10.8 ug/dl *NA* (11/15/18 3:14 AM) Cortisol 6.4 ng/dL 1 *NA* (11/15/18 3:14 AM) Aldosterone [0.0-30.0 ng/dL] 1Result Comment: This test was developed and its performance characteristics determined by [facility]. It has not been cleared or approved by the Food and Drug Administration. Performed At: [facility] [id number] Nolan Narvaez MD Ph:[phone] HEMATOLOGY 1 2 3 Most recent to oldest [Reference Range]: 12.3 K/CMM *HI* (11/17/18 2:52 AM) 14.5 K/CMM *HI* (11/16/18 6:17 AM) 14.5 K/CMM *HI* (11/14/18 2:16 AM) WBC [3.7-10.4 K/CMM] 2.55 M/CMM *LOW* (11/17/18 2:52 AM) 2.47 M/CMM *LOW* (11/16/18 6:17 AM) 2.47 M/CMM *LOW* (11/14/18 2:16 AM) RBC [4.70-6.10 M/CMM] 8.1 g/dL *LOW* (11/17/18 2:52 AM) 7.8 g/dL *LOW* (11/16/18 6:17 AM) 7.6 g/dL *LOW* (11/14/18 2:16 AM) Hgb [14.0-18.0 g/dL] 24.8 % *LOW* (11/17/18 2:52 AM) 23.9 % *LOW* (11/16/18 6:17 AM) 23.8 % *LOW* (11/14/18 2:16 AM) Hct [42.0-54.0 %] 97.4 fL *HI* (11/17/18 2:52 AM) 96.9 fL *HI* (11/16/18 6:17 AM) 96.6 fL *HI* (11/14/18 2:16 AM) MCV [80.0-94.0 fL] 31.7 pg *HI* (11/17/18 2:52 AM) 31.6 pg *HI* (11/16/18 6:17 AM) 31.0 pg (11/14/18 2:16 AM) MCH [27.0-31.0 pg] 32.6 g/dL (11/17/18 2:52 AM) 32.6 g/dL (11/16/18 6:17 AM) 32.1 g/dL (11/14/18 2:16 AM) MCHC [32.0-36.0 g/dL] 19.3 % *HI* (11/17/18 2:52 AM) 19.1 % *HI* (11/16/18 6:17 AM) 17.3 % *HI* (11/14/18 2:16 AM) RDW [11.5-14.5 %] 6.7 fL *LOW* (11/17/18 2:52 AM) 7.2 fL *LOW* (11/16/18 6:17 AM) 7.0 fL *LOW* (11/14/18 2:16 AM) MPV [7.4-10.4 fL] 377 K/CMM (11/17/18 2:52 AM) 400 K/CMM (11/16/18 6:17 AM) 403 K/CMM (11/14/18 2:16 AM) Platelet [133-450 K/CMM] 87.2 % *HI* (11/11/18 2:50 AM) 86.8 % *HI* (11/09/18 11:44 PM) 64.0 % (11/09/18 11:44 PM) Segs [45.0-75.0 %] 5.0 % (11/09/18 11:44 PM) 0.0 % (11/08/18 4:56 AM) 26.0 % *HI* (11/01/18 11:47 AM) Bands [0.0-11.0 %] 5.3 % *LOW* (11/11/18 2:50 AM) 5.8 % *LOW* (11/09/18 11:44 PM) 5.0 % *LOW* (11/09/18 11:44 PM) Lymphocytes [20.0-40.0 %] 0.0 % (11/08/18 4:56 AM) 0.0 % (11/01/18 11:47 AM) Atypical Lymphs [<=0.0 %] 6.8 % (11/11/18 2:50 AM) 4.8 % (11/09/18 11:44 PM) 10.0 % (11/09/18 11:44 PM) Monocytes [2.0-12.0 %] 0.4 % (11/11/18 2:50 AM) 2.2 % (11/09/18 11:44 PM) 3.0 % (11/09/18 11:44 PM) Eosinophils [0.0-4.0 %] 0.3 % (11/11/18 2:50 AM) 0.4 % (11/09/18 11:44 PM) 1.0 % (11/08/18 4:56 AM) Basophils [0.0-1.0 %] 3.0 % *HI* (11/09/18 11:44 PM) 4.0 % *HI* (10/31/18 11:09 PM) Metamyelocytes [0.0-1.0 %] 10.0 % *HI* (11/09/18 11:44 PM) Myelocytes [<=0.0 %] 19.7 K/CMM *HI* (11/11/18 2:50 AM) 18.4 K/CMM *HI* (11/09/18 11:44 PM) 14.6 K/CMM *HI* (11/09/18 11:44 PM) Neutrophils # [1.5-8.1 K/CMM] 1.2 K/CMM (11/11/18 2:50 AM) 1.2 K/CMM (11/09/18 11:44 PM) 1.1 K/CMM (11/09/18 11:44 PM) Lymphocytes # [1.0-5.5 K/CMM] 1.5 K/CMM *HI* (11/11/18 2:50 AM) 1.0 K/CMM *HI* (11/09/18 11:44 PM) 2.1 K/CMM *HI* (11/09/18 11:44 PM) Monocytes # [0.0-0.8 K/CMM] 0.1 K/CMM (11/11/18 2:50 AM) 0.5 K/CMM (11/09/18 11:44 PM) 0.6 K/CMM *HI* (11/09/18 11:44 PM) Eosinophils # [0.0-0.5 K/CMM] 0.1 K/CMM (11/11/18 2:50 AM) 0.1 K/CMM (11/09/18 11:44 PM) 0.1 K/CMM (11/09/18 11:44 PM) Basophils # [0.0-0.2 K/CMM] Normal (10/31/18 11:09 PM) RBC Morph 1+ *ABN* (11/06/18 2:46 AM) Anisocyte [None Seen] Moderate *ABN* (11/09/18 11:44 PM) Polychrom [None Seen] occasional *Unknown* (11/08/18 4:56 AM) Slight *Unknown* (11/01/18 11:47 AM) Polychrom Moderate *ABN* (11/09/18 11:44 PM) Toxic Gran [None Seen] Slight *Unknown* (11/01/18 11:47 AM) Neut Vac Normal (11/08/18 4:56 AM) Normal (11/06/18 2:46 AM) Normal (11/01/18 11:47 AM) Plt Morph Moderate *ABN* (11/09/18 11:44 PM) Large Plt [None Seen] Slight *Unknown* (11/01/18 11:47 AM) Large Plt 28.4 seconds *HI* (11/18/18 1:58 AM) 32.4 seconds *HI* (11/17/18 2:52 AM) 29.3 seconds *HI* (11/16/18 1:20 PM) PT [12.0-14.7 seconds] 2.74 *HI* (11/18/18 1:58 AM) 3.25 *HI* (11/17/18 2:52 AM) 2.85 *HI* (11/16/18 1:20 PM) INR [0.85-1.17] 65.9 seconds *HI* (11/17/18 2:42 PM) 68.3 seconds *HI* (11/17/18 9:03 AM) 69.5 seconds *HI* (11/17/18 2:52 AM) PTT [22.9-35.8 seconds] MOLECULAR DIAGNOSTIC 1 2 3 Most recent to oldest [Reference Range]: Flocked DECORATING INSPECTOR Swab (11/01/18 4:56 PM) Source Adenovirus PCR Flock[employer] DECORATING INSPECTOR Swab (11/01/18 4:56 PM) Source Parainfluenza Virus PCR Negative (11/01/18 4:56 PM) Parainfluenza 1 PCR [Negative] Negative (11/01/18 4:56 PM) Parainfluenza 2 PCR [Negative] Negative (11/01/18 4:56 PM) Parainfluenza 3 PCR [Negative] Flocked DECORATING INSPECTOR Swab (11/01/18 4:56 PM) Source Respiratory Panel PCR Negative (11/01/18 4:56 PM) Influenza A PCR [Negative] Negative (11/01/18 4:56 PM) Influenza B PCR [Negative] Negative (11/01/18 4:56 PM) RSV PCR [Negative] Negative (11/01/18 4:56 PM) Adenovirus PCR [Negative] Negative (11/01/18 12:19 AM) C difficile DNA [Negative] BACTERIAL - SEROLOGY 1 2 3 Most recent to oldest [Reference Range]: Negative (11/01/18 4:56 PM) MRSA by PCR Microbiology Reports TEST: Culture: Urine STATUS: Auth (Verified) BODY SITE: SOURCE: Urine, Kidney COLLECTED DATE/TIME: 11/02/18 10:45 PM FINAL REPORT >10,000 CFU/mL Pseudomonas aeruginosa . >10,000 CFU/mL Yeast ORGANISM:Pseudomonas aeruginosa TEST: Culture: Respiratory w/Gram Stain STATUS: Auth (Verified) BODY SITE: SOURCE: Sputum COLLECTED DATE/TIME: 11/01/18 11:27 PM FINAL REPORT Few Stenotrophomonas Maltophilia Few Yeast Normal Celia Absent STAIN REPORT Gram Stain Performed By: [facility] ORGANISM:Stenotrophomonas Maltophilia TEST: Culture: Urine STATUS: Auth (Verified) BODY SITE: SOURCE: Urine, Illeal Conduit COLLECTED DATE/TIME: 11/01/18 1:54 AM FINAL REPORT Specimen contains 3 or more potential pathogens; recommend correlation with urinalysis; if catheterized specimen recommend removal and recollection. If clinical situation warrants please call the laboratory for further testing. [place] Microbiology [phone]. Immunizations No data available for this section Procedures No data available for this section Social History Social History Type Response Smoking Status Unknown if ever smoked; Exposure to Tobacco Smoke None; Cigarette Smoking Last 365 Days No; Reg Smoking Cessation Counseling Yes entered on: 10/31/18 Assessment and Plan Extracted from: Title: Clinical Document Author: Lalita Laurent MD Date: 11/18/18 Urology Note Lalita Laurent MD Subjective Attending: Reyes Batista MDPhone: Service: Internal Medicine Code status: Full Code Reason for Admission: SEPSIS Working DRG: Isolation: No Isolation/Standard Precautions Consulting Physicians: Owen Fairbanks MDOffice: Service: Nephrology Payton Francisco MDOffice: Service: Pulmonary, Medicine Denise Oh V MDOffice: Service: Cardiology, Medicine Papi [facility] MDOffice: Service: Infectious Disease Eladio Rincon MDOffice: Service: Neurology, Medicine Piper Andino MDOffice: Service: Neurology, Medicine Venancio Laurent MDOffice: Service: Urology Richie Osei MDOffice: Service: Infectious Disease Bob Reagan MDOffice: service: Cardiology, Medicine Brennon Trevino MDOffice: Service: Infectious Disease Jb Bryan MDOffice: Service: Nephrology Delmi Willett MDOffice: Service: Family Practice, Supportive Medicine, Medicine Lisa Lowe MDOffice: Service: Neurology Arina Covarrubias MDOffice: Service: Infectious Disease Briana Jara MDOffice: Service: Nephrology Chief Complaint: Urological followup. History of Present Illness:SEPSIS, RT HYDRO Hematuria:N Dysuria:N Fevers:N Chills:N Urological Pains: N ILEAL CONDUIT PAST MEDICAL AND SURGICAL HISTORY: Unchanged from prior notes Allergies: SEE MAR Medications (0) Active Scheduled Meds: None Unscheduled Meds: None PRN Meds: None One Time Meds: None Continuous Infusions: None REVIEW OF SYSTEMS IS CONSISTENT WITH THE HISTORY OF PRESENT ILLNESS AND PAST MEDICAL HISTORY. IT IS OTHERWISE NEGATIVE OR UNCHANGED FOR ALL OTHER SYMPTOMS. OBJECTIVE I&ORecordInOutBal 11/1824hr Tot 200 0 200 4hr Tot 532 750 -218 Lines, Tubes, and Drains: 11/15/2018 04:33 Peripheral Lines: Upper arm Right 20 gauge Over the needle catheter 11/04/2018 18:00 Peripheral Lines: Forearm Right 20 gauge Over the needle catheter 11/01/2018 09:00 Ostomy: Nephrostomy Established Right 10/31/2018 22:00 Ostomy: Urostomy Established Right Vitals and Temp: VitalsTmp(F)[id number] 11/18 15:29 97 2.0L/m 11/18 14:00----[id number]--- 11/18 12:[id number]------ 11/18 11:02 1899--- 11/18 11:00 99 2.0L/m 24 Hr Tmax: 98.6F (37.00c) at 11/17 20:00Vital Signs are the last 5 in the past 48 hours. Constitutional Exam: Well developed, well nourished, in no apparent distress. Abdominal Exam: Soft, non-distended, non-tender, without costovertebral tenderness, kidneys are not palpable, without hepatosplenomegally. Genitalia: Extremities: Reviewed most recent laboratory tests, radiology, and microbiology results. Labs (Last four charted values) WBC H 12.3(NOV 17)H 14.5(NOV 16)H 14.5(NOV 14)H 16.8(NOV 13) Hgb L 8.1(NOV 17)L 7.8(NOV 16)L 7.6(NOV 14)L 7.6(NOV 13) Hct L 24.8(NOV 17)L 23.9(NOV 16)L 23.8(NOV 14)L 22.6(NOV 13) Plt 377(NOV 17)400(NOV 16)403(NOV 14)340(NOV 13) Na 142(NOV 17)142(NOV 16)140(NOV 15)139(NOV 14) K 3.6(NOV 17)4.0(NOV 16)4.3(NOV 15)4.8(NOV 14) CO2 30(NOV 17)28(NOV 16)28(NOV 15)H 33(NOV 14) Cl 107(NOV 17)106(NOV 16)106(NOV 15)104(NOV 14) Cr H 2.23(NOV 17)H 2.33(NOV 16)H 2.27(NOV 15)H 2.10(NOV 14) BUN H 47(NOV 17)H 50(NOV 16)H 52(NOV 15)H 54(NOV 14) Glucose Random H 111(NOV 17)H 121(NOV 16)H 108(NOV 15)H 118(NOV 14) Mg 2.3(NOV 11)1.8(NOV 09)1.9(NOV 08)L 1.6(NOV 06) Phos H 5.2(NOV 11)3.4(NOV 01)3.0(OCT 31) Ca L 8.0(NOV 17)L 8.2(NOV 16)L 8.4(NOV 15)L 8.3(NOV 14) PT H 28.4(NOV 18)H 32.4(NOV 17)H 29.3(NOV 16)H 22.0(NOV 14) INR H 2.74(NOV 18)H 3.25(NOV 17)H 2.85(NOV 16)H 1.97(NOV 14) PTT H 65.9(NOV 17)H 68.3(NOV 17)H 69.5(NOV 17)H 82.0(NOV 16) Troponin C 1.50(NOV 18)C 1.90(NOV 17)C 2.10(NOV 17)C 0.53(NOV 11) ASSESSMENT; RT HYDRO RT PCN/STENT UTI RENAL FAILURE ANEMIA H/O TCC BLADDER RT URETERAL STRICTURE PLAN: KEEP PCN, WILL BE CHANGED AT LATER DATE WILL FOLLOW WITHYOU SIGNATURE LINE Extracted from: Title: Discharge Summary * Author: Reyes Batista MD Date: 11/18/18 Discharge Information Disposition: To alf facility Condition: Stable Medications: See med reconciliation form Diet: Heart healthy Discharge Plan In the event of any worsening symptoms patient advised to come back to the ED for further evaluation Discharge summary to greater than 35 minutes Extracted from: Title: Neurology Consult Note Author: Lisa Lowe MD Date: 11/10/18 Impression and Plan 1. Episode of unresponsiveness - Acute encephalopathy of unclear etiology. ? Metabolic. R/o seizure 2. H/o Bladder cancer s/o resection, creation of ilieal conduit, nephrostomy 3. A Fib on AC 4. ? left UE myoclonic jerks. 5. Acute renal failure 6. Elevated Troponins 7. NSTEMI 8. Recent UTI, Pneumonia 9. CKD 10.Anemia of chronic ds PLAN: Reviewed CT head images. Check EEG and MRI brain without contrast for further eval. pt's mental status is now improving. D/w Dr Batista, Nurse, Dr Willett, Stroke CREDIT COLLECTIONS ANALYST. Neurology to follow. addendum - pt can not get MRI due to pacemaker. Thank you very much for this opportunity to participate in the care of your patient. Extracted from: Title: Respiratory failure Author: Corina Gong DO Date: 11/01/18 Critical Care Medicine Chief complaint: Respiratory failure History of present illness: 88 y.o male with a h/o bladder cancer s/p resection and creation of an ileal conduit and nephrostomy placement as well as afib on coumadin presnted from an outside ER on the ventlilator. Apparently he was having diarrhea with nausea and vomiting for sveral days. He developed mental status changes and afib. The patient was intubated and placed on an amio and cardizem gtt. His lactate was 23. Past medical history: bladder CA, afib Past family history: No qualifying data available Surgical history: bladder resection, ileal conduit, nephrostomy, PPM Social history: Tobacco Details: Use: Unknown if ever smoked. Tobacco smoke exposure: None. Did the Patient Smoke Cigarettes Anytime During the Last 365 Days? No. Cessation Counseling Provided? Yes. Medications: Medication List Active Medications Ordered AMIODarone 900 mg + Dextrose 5% in Water IV 482 mL: 1 mg/min for 6 hours, then reduce to 0.5 mg/min, IV, Stop: 12/01/18 0:00:00 CDT. aspirin: 81 mg, 1 tab, PO, Daily. calcium carbonate: 500 mg, 1 tab, PO, PRN, PRN: Abnormal Lab Result. calcium carbonate: 1,000 mg, 2 tab, PO, PRN, PRN: Abnormal Lab Result. calcium gluconate: 1 gm, 50 mL, 100 ml/hr, IVPB, PRN, PRN: Abnormal Lab Result. chlorhexidine topical: 15 mL, Swab Mouth, Q12H. chlorhexidine topical: 15 mL, Swab Mouth, PRN, PRN: Other -See Comment. diltiazem 125 mg + Sodium Chloride 0.9% IV 100 mL: Titrate, IV, Stop: 12/01/18 0:01:00 CDT. famotidine: 20 mg, 2 mL, IVP, Q12H. fentaNYL 1,250 microgram: Titrate, IV, Stop: 11/30/18 23:20:00 CDT. magnesium oxide: 800 mg, 2 tab, PO, PRN, PRN: Abnormal Lab Result. magnesium sulfate: 2 gm, 50 mL, 25 ml/hr, IVPB, PRN, PRN: Abnormal Lab Result. meropenem: 500 mg, IVPB, ABXQ8H. ocular lubricant: 1 appl, BOTH EYES, Q6H. potassium chloride: 20 mEq, 100 mL, 50 ml/hr, IVPB, PRN, PRN: Abnormal Lab Result. potassium chloride: 10 mEq, 100 mL, 100 ml/hr, IVPB, PRN, PRN: Abnormal Lab Result. potassium chloride: 20 mEq, 1 tab, PO, PRN, PRN: Abnormal Lab Result. potassium chloride: 20 mEq, 15 mL, [place], PRN, PRN: Abnormal Lab Result. potassium phosphate + Sodium Chloride 0.9% IV 250 mL: 15 mmol, 5 mL, 63.75 ml/hr, IVPB, PRN, PRN: Abnormal Lab Result. potassium phosphate + Sodium Chloride 0.9% IV 250 mL: 30 mmol, 10 mL, 65 ml/hr, IVPB, PRN, PRN: Abnormal Lab Result. potassium phosphate + Sodium Chloride 0.9% IV 250 mL: 45 mmol, 15 mL, 66.25 ml/hr, IVPB, PRN, PRN: Abnormal Lab Result. potassium phosphate-sodium phosphate: 2 pkt, PO, PRN, PRN: Abnormal Lab Result. Sodium Chloride 0.45% IV 1,000 mL: 125 ml/hr, IV, Stop: 12/01/18 0:00:00 CDT. sodium phosphate + Dextrose 5% in Water IV 250 mL: 15 mmol, 5 mL, 63.75 ml/hr, IVPB, PRN, PRN: Abnormal Lab Result. sodium phosphate + Dextrose 5% in Water IV 250 mL: 30 mmol, 10 mL, 65 ml/hr, IVPB, PRN, PRN: Abnormal Lab Result. sodium phosphate + Dextrose 5% in Water IV 250 mL: 45 mmol, 15 mL, 66.25 ml/hr, IVPB, PRN, PRN: Abnormal Lab Result. vancomycin: 125 mg, 2.5 mL, PO, ABXQ6H. vancomycin: 1 ea, MISC, ONCALL. Medications Inactivated in the Last 72 Hours meropenem: 500 mg, IVPB, ABXQ8H. Review of systems: Unable to obtain due to the patients condition General: No fevers chills, weight loss, weakness. HEENT: No blurring of vision, sore throat, nasal congestion, epistaxis, tinnitus. Cardiovascular: No palpitations, chest pain, syncope/near syncope, dyspnea on exertion, paroxysmal nocturnal dyspnea Respiratory: No shortness of breath, cough, pain with respiration, hemoptysis Gastrointestinal: Normal appetite, no hematemesis, vomiting, bloody stool, abdominal pain, diarrhea Genitourinary: No frequency, urgency, nocturia, hematuria or dysuria. Musculoskeletal: No arthralgias or myalgias. Dermatology: No swelling, bruising, contusions,abrasions, lymphangitis. Neurology: No headache, neck pain, numbness or tingling of the extremities. or weakness. Endocrine: No history of thyroid, diabetes or adrenal problems. Hematologic: No bleeding, petechiae,bruising. Allergy: No asthma, urticaria. Psychiatric: No confusion or depression Physical Exam VitalsTmp(F)[id number] 10/31 23:15----[id number]--- 10/31 23:00----[id number]--- 10/31 22:45----[id number]--- 10/31 22:30----[id number]--- 10/31 22:15----[id number]--- 24 Hr Tmax: No Data AvailableVital Signs are the last 5 in the past 48 hours. Gen: no acute distress HEENT: intubated Neuro: sedated Cardio: tachycardic, irregularly irregular Pulm: CTAB Abd: soft, abnormal bowel sounds Derm: no rash Ext: no edema, no cyanosis, no limb ischemia Labs (Last four charted values) WBC H 17.8(OCT 31) Hgb 14.0(OCT 31) Hct 43.3(OCT 31) Plt 179(OCT 31) Na 137(OCT 31) K 3.6(OCT 31) CO2 L 18(OCT 31) Cl H 110(OCT 31) Cr H 1.60(OCT 31) BUN 20(OCT 31) Glucose Random H 185(OCT 31) Mg C 1.0(OCT 31) Phos 3.0(OCT 31) Ca L 7.1(OCT 31) PT H 21.5(OCT 31) INR H 1.91(OCT 31) PTT H 37.8(OCT 31) Troponin C 1.10(OCT 31) Impression: 1. Respiratory failure 2. Need or mechanical ventilation 3. Sever lactic acidosis 4. Afib with RVR 5. Diarrhea r/o C diff 6. STEVENSON/CKD 7. h/o bladder CA s/p resection and creation of an ileal conduit and nephrostomy Plan: - ICU care - full vent support - f/u ABG - analgosedation with fentynal - rate control with amio and cardizem - cardiology consultation - cardiac echo - INR goal 2-3 - panculture and check C diff - meropenem and po + IV vanco - CT abd/pelvis, CT brain - prophylactic measures CCM time exclusive of procedures is: 42 min Time was spent in reviewing, laboratory and radiographic data, in direct management of patient at bedside as well as coordination Requires critical care due to the acute impairment of vital organ systems and a high probability of imminent and life threatening deterioration. Addendum Patient also with elevated trops most likely due to type 2 NSTEMI. Will start po ASA. INR by currently 1.9. Corina Gong DO on 11/01/2018 00:38
--- OUTSIDE RECORDS SUMMARY | 2018-12-24 10:35 | XMS REPORT | Continuity of Care Document ---
Author Author [facility] Interface Address Unknown Phone Unavailable Problems Problem Status Onset Date Classification Date Reported Comments Source SEPSIS Active 10/31/2018 [facility] SEPSIS, UNSPECIFIED ORGANISM Active [facility] Medications Medication Details Route Status Patient Instructions Ordering Provider Order Date Source atorvastatin 40 MG Oral Tablet [Lipitor] 40 mg=1 tab, PO, Bedtime, # 30 tab, 0 Refill(s), other Active 11/18/2018 [facility] lisinopril 2.5 mg oral tablet 2.5 mg=1 tab, PO, Daily, # 30 tab, 0 Refill(s), other Active 11/18/2018 [facility] Aspirin 81 MG Chewable Tablet 81 mg=1 tab, CHEW, Daily, 0 Refill(s) Active 11/18/2018 [facility] AMIODarone 200 mg oral tablet 200 mg=1 tab, PO, BID, 0 Refill(s) Active 11/18/2018 [facility] Furosemide 40 MG Oral Tablet 40 mg=1 tab, PO, Daily, 0 Refill(s) Active 11/18/2018 [facility] metoprolol tartrate 25 mg oral tablet 12.5 mg=0.5 tab, PO, Q12H, 0 Refill(s) Active 11/18/2018 [facility] warfarin 1 mg oral tablet 3 mg=3 tab, PO, Q5PM, 0 Refill(s) Active 11/18/2018 [facility] Sodium Chloride 0.9% (titrate) 250 mL 250 mL, Rate: To prime line and flush remaining blood products., Dosing Weight 93.182, kg, Route: IV, Total Volume: 250, Priority: Routine, Start Date: 11/17/18 14:19:00 EMPLOYEE DEVELOPMENT MANAGER, Duration: 30 day, Stop date: 12/17/18 15:18:00 CDT, Replace Every: 24 hr Inactive 11/17/2018 [facility] normal saline 0.9% IV 500 mL 500 mL, Rate: 999 ml/hr, Infuse over: 0.5 hr, Route: IV, Dosing Weight 93.182 kg, Total Volume: 500, Start date: 11/14/18 16:47:00 EMPLOYEE DEVELOPMENT MANAGER, Duration: 1 doses or times, Stop date: 11/14/18 17:16:00 EMPLOYEE DEVELOPMENT MANAGER, 2.16, m2 Inactive 11/14/2018 [facility] Midodrine 10 mg, 2 tab, Route: PO, Drug form: TAB, TID, Dosing Weight 93.182, kg, Priority: NOW, Start date: 11/13/18 14:46:00 EMPLOYEE DEVELOPMENT MANAGER, Duration: 30 day, Stop date: 12/13/18 13:00:00 CDTNotes: (Same as:Proamatine) No Longer Active 11/13/2018 [facility] remove patch 1 patch, Route: TOP, Drug form: ERFILM, Q72H, Start date: 11/13/18 13:00:00 EMPLOYEE DEVELOPMENT MANAGER, Duration: 30 day, Stop date: 12/10/18 13:00:00 CDT No Longer Active 11/13/2018 [facility] Lasix 40 mg, 1 tab, Route: PO, Drug form: TAB, Daily, Dosing Weight 93.182, kg, Start date: 11/12/18 9:00:00 EMPLOYEE DEVELOPMENT MANAGER, Duration: 30 day, Stop date: 12/11/18 9:00:00 CDTNotes: (Same as: Lasix) May cause GI upset. Give with food or milk. No Longer Active 11/12/2018 [facility] Flagyl 500 mg, 100 mL, Route: IVPB, Drug form: INJ, [id number], Dosing Weight 93.182, kg, Priority: NOW, Start date: 11/10/18 13:58:00 EMPLOYEE DEVELOPMENT MANAGER, Duration: 10 day, Stop date: 11/20/18 5:58:00 EMPLOYEE DEVELOPMENT MANAGER, ABX Indication: Pne umoniaNotes: (Same as: Flagyl) Avoid alcohol. No Longer Active 11/10/2018 [facility] 72 HR Scopolamine 0.0139 MG/HR Transdermal Patch 1 patch, Route: TOP, Drug Form: ERFILM, Dosing Weight 93.182, kg, Q72H, Start date: 11/10/18 13:00:00 EMPLOYEE DEVELOPMENT MANAGER, Duration: 30 day, Stop date: 12/07/18 13:00:00 CDTNotes: (Same as: Transderm-Scop) No Longer Active 11/10/2018 [facility] Phenergan 25 mg, 1 mL, Route: IVPB, Q4H, Dosing Weight 93.182, kg, PRN Nausea & Vomiting, Start date: 11/10/18 12:36:00 EMPLOYEE DEVELOPMENT MANAGER, Duration: 30 day, Stop date: 12/10/18 12:35:00 CDTNotes: Do not give IV push. (Same as: Phenergan) No Longer Active 11/10/2018 [facility] Zofran 4 mg, 2 mL, Route: IV, Drug form: INJ, Q6H, Dosing Weight 93.182, kg, PRN Nausea, Start date: 11/10/18 12:04:00 EMPLOYEE DEVELOPMENT MANAGER, Duration: 30 day, Stop date: 12/10/18 12:03:00 CDTNotes: (Same as: Zofran) MEDICATION WASTE Product Size: 4 mg Product Wasted: ___ mg No Longer Active 11/10/2018 [facility] Lasix 40 mg, 1 tab, Route: PO, Drug form: TAB, BID Diuretic, Dosing Weight 93.182, kg, Start date: 11/09/18 16:00:00 EMPLOYEE DEVELOPMENT MANAGER, Duration: 30 day, Stop date: 12/09/18 8:00:00 CDTNotes: (Same as: Lasix) May cause GI upset. Give with food or milk. No Longer Active 11/09/2018 [facility] Amiodarone 200 mg, 1 tab, Route: PO, Drug form: TAB, BID, Dosing Weight 93.182, kg, Start date: 11/09/18 9:00:00 EMPLOYEE DEVELOPMENT MANAGER, Duration: 30 day, Stop date: 12/08/18 21:00:00 CDTNotes: (Same as: Cordarone) Inactive 11/09/2018 [facility] AMIODarone 900 mg in D5W 500 ml IV 900 mg + Dextrose 5% in Water IV 482 mL 900 mg, 18 mL, Rate: 0.5 mg/min for until 6am. Continuation from previous order., Dosing Weight 93.182, kg, Route: IV, Total Volume: 500, Start Date: 11/09/18 0:12:00 EMPLOYEE DEVELOPMENT MANAGER, Duration: 24 hr, Stop date: 11/10/18 0:11:00 EMPLOYEE DEVELOPMENT MANAGER, Replace Every: 24 hrNotes: Central administration only for concentration > 2 mg/ml. Use Glass Bottle or Non PVC Bag "Use 0.22 micron in-line filter" MEDICATION WASTE Product Size: 900 mg Product Wasted: ___ mg Inactive 11/09/2018 [facility] AMIODarone 900 mg in D5W 500 ml IV 900 mg + Dextrose 5% in Water IV 482 mL 900 mg, 18 mL, Rate: 0.5mg/min for 24 hours, Dosing Weight 93.182, kg, Route: IV, Total Volume: 500, Start Date: 11/07/18 22:48:00 EMPLOYEE DEVELOPMENT MANAGER, Duration: 1 day, Stop date: 11/08/18 22:47:00 EMPLOYEE DEVELOPMENT MANAGER, Replace Every: 24 hrNotes: Central administration only for concentration > 2 mg/ml. Use Glass Bottle or Non PVC Bag "Use 0.22 micron in-line filter" MEDICATION WASTE Product Size: 900 mg Product Wasted: ___ mg No Longer Active 11/08/2018 [facility] Klor-Con 40 mEq, 2 tab, Route: PO, Drug form: ERTAB, BID, Dosing Weight 93.182, kg, Priority: NOW, Start date: 11/07/18 17:03:00 EMPLOYEE DEVELOPMENT MANAGER, Duration: 30 day, Stop date: 12/07/18 17:00:00 CDTNotes: (Same as: K-Dur 20) "Do Not Crush" Give with food and full glass of water For patients unable to swallow tablet, dissolve in one half glass of water. Allow about 2 minutes for the tablets to disintegrate. Stir before giving to prepare slurry and administer. Please exclude Patients with feeding tube less than 14 Czech (Dobhoff, J-tube etc) and pediatric and patients. No Longer Active 11/07/2018 [facility] Potassium Chloride 40 mEq, 2 tab, Route: NG, Drug form: ERTAB, ONCE, Dosing Weight 93.182, kg, Start date: 11/07/18 16:09:00 EMPLOYEE DEVELOPMENT MANAGER, Stop date: 11/07/18 16:09:00 CSTNotes: (Same as: K-Dur 20) "Do Not Crush" Give with food and full glass of water Inactive 11/07/2018 [facility] AMIODarone 900 mg in D5W 500 ml IV 900 mg + Dextrose 5% in Water IV 482 mL 900 mg, 18 mL, Rate: 1 mg/min for 6 hours, then reduce to 0.5 mg/min, Dosing Weight 93.182, kg, Route: IV, Total Volume: 500, Start Date: 11/06/18 22:14:00 EMPLOYEE DEVELOPMENT MANAGER, Duration: 1 day, Stop date: 11/07/18 22:13:00 EMPLOYEE DEVELOPMENT MANAGER, Replace Every: 24 hrNotes: Central administration only for concentration > 2 mg/ml. Use Glass Bottle or Non PVC Bag "Use 0.22 micron in-line filter" MEDICATION WASTE Product Size: 900 mg Product Wasted: ___ mg No Longer Active 11/07/2018 [facility] Amiodarone 150 mg, 3 mL, Route: IV, ONCE, Dosing Weight 93.182, kg, Start date: 11/06/18 22:14:00 EMPLOYEE DEVELOPMENT MANAGER, Stop date: 11/06/18 22:14:00 CSTNotes: Central administration only for concentrations > 2 mg/ml. "Recommendation: Use an in-line filter during administration for continuous infusions to reduce the incidence of phlebitis" (Same as Codarone) MEDICATION WASTE Product Size: 150 mg Product Wasted: ___ mg Inactive 11/07/2018 [facility] Lactulose 667 MG/ML Oral Solution 20 gm, 30 mL, Route: NG, Drug form: SYRP, ONCE, Dosing Weight 93.182, kg, Start date: 11/06/18 17:00:00 EMPLOYEE DEVELOPMENT MANAGER, Stop date: 11/06/18 17:00:00 CSTNotes: (Same as:Chronulac) Inactive 11/06/2018 [facility] Albuterol 0.833 MG/ML / Ipratropium Perry 0.167 MG/ML Inhalant Solution [DuoNeb] 3 mL, Route: NEB, Drug Form: SOLN, Dosing Weight 93.182, kg, RQID, Start date: 11/06/18 15:00:00 EMPLOYEE DEVELOPMENT MANAGER, Duration: 30 day, Stop date: 12/06/18 11:00:00 CDTNotes: (Same as: Duoneb) No Longer Active 11/06/2018 [facility] Levaquin 750 mg, 150 mL, Route: IVPB, Drug form: SOLN, [id number], Dosing Weight 93.182, kg, Start date: 11/06/18 13:00:00 EMPLOYEE DEVELOPMENT MANAGER, Duration: 10 day, Stop date: 11/14/18 13:00:00 EMPLOYEE DEVELOPMENT MANAGER, ABX Indication: PneumoniaNotes: (Same as:Levaquin) No Longer Active 11/06/2018 [facility] Magnesium Sulfate 2 gm, 50 mL, Route: IVPB, Drug form: INJ, ONCE, Dosing Weight 93.182, kg, Start date: 11/06/18 10:03:00 EMPLOYEE DEVELOPMENT MANAGER, Stop date: 11/06/18 10:03:00 CSTNotes: WASTE: F/P - Sink; E - Municipal Trash Bin Inactive 11/06/2018 [facility] Lasix 40 mg, 4 mL, Route: IV, Drug form: INJ, BID, Dosing Weight 93.182, kg, Start date: 11/05/18 21:00:00 EMPLOYEE DEVELOPMENT MANAGER, Duration: 30 day, Stop date: 12/05/18 17:00:00 CDTNotes: (Same as: Lasix) MEDICATION WASTE Product Size: 40 mg Product Wasted: ___ mg No Longer Active 11/06/2018 [facility] Budesonide 0.25 MG/ML Inhalant Solution [Pulmicort] 0.5 mg, 2 mL, Route: NEB, Drug form: SUSP, RBID, Dosing Weight 93.182, kg, Start date: 11/05/18 20:00:00 EMPLOYEE DEVELOPMENT MANAGER, Duration: 30 day, Stop date: 12/05/18 8:00:00 CDTNotes: (Same As: Pulmicort) No Longer Active 11/06/2018 [facility] Albuterol 0.833 MG/ML / Ipratropium Perry 0.167 MG/ML Inhalant Solution [DuoNeb] 3 ml, Route: NEB, Drug Form: SOLN, Dosing Weight 93.182, kg, PRN, PRN Respiratory Pathway, Start date: 11/05/18 11:50:00 EMPLOYEE DEVELOPMENT MANAGER, Duration: 30 day, Stop date: 12/05/18 12:49:00 CDT Inactive 11/05/2018 [facility] Furosemide 100 mg, 10 mL, Rate: 10 mg/hour, Dosing Weight 93.182, kg, Route: IV, Total Volume: 100, Start Date: 11/05/18 11:49:00 EMPLOYEE DEVELOPMENT MANAGER, Duration: 30 day, Stop date: 12/05/18 11:48:00 CDT, Replace Every: 24 hr, cont inuousNotes: (Same as: Lasix) MEDICATION WASTE Product Size: 100 mg Product Wasted: ___ mg Inactive 11/05/2018 [facility] Albuterol 0.833 MG/ML / Ipratropium Perry 0.167 MG/ML Inhalant Solution [DuoNeb] 3 ml, Route: NEB, Drug Form: SOLN, Dosing Weight 93.182, kg, PRN, PRN Respiratory Pathway, Start date: 11/05/18 10:07:00 EMPLOYEE DEVELOPMENT MANAGER, Duration: 30 day, Stop date: 12/05/18 11:06:00 CDTNotes: (Same as: Duoneb) No Longer Active 11/05/2018 [facility] Guaifenesin 200 mg, 10 mL, Route: PO, Drug form: LIQ, QID, Dosing Weight 93.182, kg, PRN as needed for cough, Start date: 11/05/18 10:07:00 EMPLOYEE DEVELOPMENT MANAGER, Duration: 30 day, Stop date: 12/05/18 10:06:00 CDTNotes: (Same as: Robitussin) No Longer Active 11/05/2018 [facility] Warfarin 3 mg, 3 tab, Route: PO, Drug form: TAB, Q5PM, Dosing Weight 93.182, kg, Start date: 11/04/18 17:00:00 EMPLOYEE DEVELOPMENT MANAGER, Duration: 30 day, Stop date: 12/03/18 17:00:00 CDTNotes: Nurse to ensure documentation of patient education per anticoagulation policy. Avoid large intake of vitamin-K containing foods diet. (Same As: Coumadin) WASTE: F/P - P Waste Black; E - P Waste Black No Longer Active 11/04/2018 [facility] Lasix 40 mg, 4 mL, Route: IVP, Drug form: INJ, Daily, Dosing Weight 93.182, kg, Start date: 11/04/18 9:00:00 EMPLOYEE DEVELOPMENT MANAGER, Duration: 30 day, Stop date: 12/03/18 9:00:00 CDTNotes: (Same as: Lasix) MEDICATION WASTE Product Size: 40 mg Product Wasted: ___ mg No Longer Active 11/04/2018 [facility] metoprolol tartrate 12.5 mg, 0.5 tab, Route: PO, Drug form: TAB, Q12H, Dosing Weight 93.182, kg, Start date: 11/04/18 9:00:00 EMPLOYEE DEVELOPMENT MANAGER, Duration: 30 day, Stop date: 12/03/18 21:00:00 CDTNotes: (Same as: Lopressor) No Longer Active 11/04/2018 [facility] cefepime 1 gm, Route: IVPB, [id number], Dosing Weight 93.182, kg, (CrCl >/=50 ml/min), Start date: 11/04/18 1:00:00 EMPLOYEE DEVELOPMENT MANAGER, Duration: 10 day, Stop date: 11/13/18 13:00:00 EMPLOYEE DEVELOPMENT MANAGER, ABX Indication: PneumoniaNotes: (Same As: Maxipime) MEDICATION WASTE Product Size: 1000 mg Product Wasted: ___ mg No Longer Active 11/04/2018 [facility] Diltiazem 30 mg, 1 tab, Route: PO, Drug form: TAB, Q6H, Dosing Weight 93.182, kg, Start date: 11/03/18 12:00:00 EMPLOYEE DEVELOPMENT MANAGER, Duration: 30 day, Stop date: 12/03/18 6:00:00 CDTNotes: (Same as: Cardizem) Before meals No Longer Active 11/03/2018 [facility] Amiodarone 200 mg, 1 tab, Route: OGT, Drug form: TAB, Daily, Dosing Weight 93.182, kg, Start date: 11/03/18 9:00:00 EMPLOYEE DEVELOPMENT MANAGER, Duration: 30 day, Stop date: 12/02/18 9:00:00 CDTNotes: (Same as: Cordarone) No Longer Active 11/03/2018 [facility] ATTN RN please do not give vanc untill trough is drawn ATTN RN please do not give vanc untill trough is drawn, ATTN RN, Drug form: MISC, Route: MISC, ONCE, 11/03/18 2:00:00 EMPLOYEE DEVELOPMENT MANAGER, Stop date: 11/03/18 2:00:00 EMPLOYEE DEVELOPMENT MANAGER Inactive 11/03/2018 [facility] vancomycin + Sodium Chloride 0.9% IV 250 mL 1,000 mg, Route: IVPB, [id number], Start date: 11/02/18 3:00:00 EMPLOYEE DEVELOPMENT MANAGER, Duration: 30 day, Stop date: 12/01/18 3:00:00 CDT, ABX Indication: ED - Suspected SepsisNotes: TIME CRITICAL MEDICATION (Same As: Vancocin) Infusion rate 2001 mg: infuse over 2.5 hours For adult patients only: Round to nearest 250 mg per Medical Staff approval MEDICATION WASTE Product Size: 1000 mg Product Wasted: ___ mg No Longer Active 11/02/2018 [facility] Mupirocin 1 appl, Route: NASAL, Q12H, Drug form: OINT, Start date: 11/01/18 21:00:00 EMPLOYEE DEVELOPMENT MANAGER, Duration: 5 day, Stop date: 11/06/18 9:00:00 EMPLOYEE DEVELOPMENT MANAGER, MRSA Decolonization No Longer Active 11/02/2018 [facility] Aspirin 81 mg, 1 tab, Route: CHEW, Drug form: CHEWTAB, Daily, Dosing Weight 93.182, kg, Priority: NOW, Start date: 11/01/18 16:09:00 EMPLOYEE DEVELOPMENT MANAGER, Duration: 30 day, Stop date: 12/01/18 9:00:00 CDTNotes: Take with food. No Longer Active 11/01/2018 [facility] Furosemide 20 mg, PO, Daily, 0 Refill(s) No Longer Active 11/01/2018 [facility] Tramadol 50 mg, PO, Q6H, PRN Pain, # 20 tab, 0 Refill(s) No Longer Active 11/01/2018 [facility] Brompheniramine Maleate 0.4 MG/ML / Dextromethorphan Hydrobromide 2 MG/ML / Pseudoephedrine Hydrochloride 6 MG/ML Oral Solution [Bromfed DM] 10 mL, PO, QID, 0 Refill(s) No Longer Active 11/01/2018 [facility] metoprolol tartrate 50 mg, PO, Q12H, 0 Refill(s) No Longer Active 11/01/2018 [facility] Trazodone 50 mg, PO, Bedtime, 0 Refill(s) No Longer Active 11/01/2018 [facility] Warfarin 2 mg, PO, Daily, 0 Refill(s) No Longer Active 11/01/2018 [facility] heparin additive 25,000 unit [14 unit/kg/hr] + Premix Diluent Dextrose 5% 500 mL 500 mL, Rate: 22.31 ml/hr, Infuse over: 22.4 hr, Route: IV, Dosing Weight 79.69 kg, Total Volume: 500 mL, Start date: 11/01/18 9:38:00 EMPLOYEE DEVELOPMENT MANAGER, Duration: 30 day, Stop date: 12/01/18 9:37:00 CDT, 1.98, m2 No Longer Active 11/01/2018 [facility] Potassium Chloride 20 mEq, 100 mL, Route: IVPB, Drug form: INJ, PRN, Dosing Weight 93.182, kg, PRN Abnormal Lab Result, Via central line, Start date: 11/01/18 9:32:00 EMPLOYEE DEVELOPMENT MANAGER, Duration: 30 day, Stop date: 12/01/18 10:31:00 CDT, FOR ICU USE ONLYNotes: (Same as: KCL) Infuse no faster than 10 mEq/hr if given peripherally. No Longer Active 11/01/2018 [facility] Calcium Carbonate 500 MG Chewable Tablet 1,000 mg, 2 tab, Route: PO, Drug form: CHEWTAB, PRN, Dosing Weight 93.182, kg, PRN Abnormal Lab Result, FOR ICU USE ONLY, Start date: 11/01/18 9:32:00 EMPLOYEE DEVELOPMENT MANAGER, Duration: 30 day, Stop date: 12/01/18 10:31:00 CDTNotes: (Same As: Tums) Calcium Carbonate 500 yl=312 mg elemental calcium Dose= mg calcium carbonate ( mg elemental calcium) No Longer Active 11/01/2018 [facility] sodium phosphate 15 mmol, 5 mL, Route: IVPB, PRN, Dosing Weight 93.182, kg, PRN Abnormal Lab Result, Start date: 11/01/18 9:32:00 EMPLOYEE DEVELOPMENT MANAGER, Duration: 30 day, Stop date: 12/01/18 10:31:00 CDT, FOR ICU USE ONLYNotes: Infuse over 4 hour. Do not infuse phosphorous concurrently in the same line as TPN or IVF that contains calcium. For double lumen central lines, phosphorous may be infused in a separate lumen from TPN. No Longer Active 11/01/2018 [facility] potassium phosphate 15 mmol, 5 mL, Route: IVPB, PRN, Dosing Weight 93.182, kg, PRN Abnormal Lab Result, Start date: 11/01/18 9:32:00 EMPLOYEE DEVELOPMENT MANAGER, Duration: 30 day, Stop date: 12/01/18 10:31:00 CDT, FOR ICU USE ONLYNotes: (Same as: K Phosphate.) Do not infuse phosphorous concurrently in the same line as TPN or IVF that contains calcium. For double lumen central lines, phosphorous may be infused in a separate lumen from TPN. 1 mMol phoshate has 1.47 mEq potassium Infuse over 4 hours No Longer Active 11/01/2018 [facility] potassium phosphate-sodium phosphate 250 mg-280 mg-160 mg oral powder for reconstitution 2 pkt, Route: PO, Drug Form: PDR/REC, Dosing Weight 93.182, kg, PRN, PRN Abnormal Lab Result, FOR ICU USE ONLY, Start date: 11/01/18 9:32:00 EMPLOYEE DEVELOPMENT MANAGER, Duration: 30 day, Stop date: 12/01/18 10:31:00 CDTNotes: (Same as: Phos-NaK) Each 1.5 gm pkt has 250mg phosphorous. Mix w/2.5oz water and stir. No Longer Active 11/01/2018 [facility] Magnesium Sulfate 2 gm, 50 mL, Route: IVPB, Drug form: INJ, PRN, Dosing Weight 93.182, kg, PRN Abnormal Lab Result, Start date: 11/01/18 9:32:00 EMPLOYEE DEVELOPMENT MANAGER, Duration: 30 day, Stop date: 12/01/18 10:31:00 CDT, FOR ICU USE ONLYNotes: WASTE: F/P - Sink; E - Municipal Trash Bin No Longer Active 11/01/2018 [facility] Calcium Gluconate 1 gm, 10 mL, Route: IVPB, PRN, Dosing Weight 93.182, kg, PRN Abnormal Lab Result, Start date: 11/01/18 9:32:00 EMPLOYEE DEVELOPMENT MANAGER, Duration: 30 day, Stop date: 12/01/18 10:31:00 CDT, FOR ICU USE ONLYNotes: WASTE: F/P - Sink; E - Municipal Trash Bin No Longer Active 11/01/2018 [facility] Magnesium Oxide 800 mg, 2 tab, Route: PO, Drug form: TAB, PRN, Dosing Weight 93.182, kg, PRN Abnormal Lab Result, FOR ICU USE ONLY, Start date: 11/01/18 9:32:00 EMPLOYEE DEVELOPMENT MANAGER, Duration: 30 day, Stop date: 12/01/18 10:31:00 CDTNo adams: (Same as: Mag-Ox 400) Magnesium oxide [id number] elemental magnesium Dose=____mg magnesium oxide (___mg elemental magnesium) No Longer Active 11/01/2018 [facility] Water 1,000 mL, Rate: 100 ml/hr, Infuse over: 11.5 hr, Dosing Weight 93.182, kg, Route: IV, Total Volume: 1,150, Start Date: 11/01/18 9:27:00 EMPLOYEE DEVELOPMENT MANAGER, Duration: 30 day, Stop date: 12/01/18 9:26:00 CDT, Replace Every: 11.5 hrNotes: (sodium bicarb 8.4% (1 mEq/ml) 50 ml VL) No Longer Active 11/01/2018 [facility] Aspirin 81 mg, 1 tab, Route: PO, Drug form: CHEWTAB, Daily, Dosing Weight 93.182, kg, Start date: 11/01/18 9:00:00 EMPLOYEE DEVELOPMENT MANAGER, Duration: 30 day, Stop date: 11/30/18 9:00:00 CDTNotes: Take with food. Inactive 11/01/2018 [facility] chlorhexidine gluconate 1.2 MG/ML Mouthwash 15 mL, Route: Swab Mouth, Q12H, Drug form: LIQ, Start date: 11/01/18 9:00:00 EMPLOYEE DEVELOPMENT MANAGER, Duration: 30 day, Stop date: 11/30/18 21:00:00 CDTNotes: (Same As: Peridex) No Longer Active 11/01/2018 [facility] Pepcid 20 mg, 2 mL, Route: IVP, Drug form: INJ, Q12H, Dosing Weight 93.182, kg, Start date: 11/01/18 9:00:00 EMPLOYEE DEVELOPMENT MANAGER, Duration: 30 day, Stop date: 11/30/18 21:00:00 CDTNotes: (Same as: Pepcid) Can be dilute in 5-10cc NS IVP: Slow IV push over at least 2 minutes. No Longer Active 11/01/2018 [facility] sodium bicarbonate 8.4% 100 mEq, 100 mL, Route: IVP, Drug Form: INJ, Dosing Weight 93.182, kg, ONCE, Start date: 11/01/18 3:45:00 EMPLOYEE DEVELOPMENT MANAGER, Stop date: 11/01/18 3:45:00 CSTNotes: (sodium bicarb 8.4% (1 mEq/ml) 50 ml syringe) Inactive 11/01/2018 [facility] Vasopressin (CARE [facility]) 20 unit, 100 mL, Rate: 0.03 unit/min, Start Dose: 0.03 unit/min, Titration: DO NOT TITRATE, Goal(s): MAP >=65 mmHg, Max Dose: 0.03 unit/min, Route: IV, Dosing Weight 93.182 kg, Total Volume: 100 For Sepsis, Start date: 11/01/18 3:45:00 EMPLOYEE DEVELOPMENT MANAGER, Duration...Notes: (Same As: Vasostrict) No Longer Active 11/01/2018 [facility] vancomycin + Sodium Chloride 0.9% IV 500 mL 2,500 mg, Route: IVPB, ONCE, Start date: 11/01/18 2:33:00 EMPLOYEE DEVELOPMENT MANAGER, Stop date: 11/01/18 2:33:00 EMPLOYEE DEVELOPMENT MANAGER, ABX Indication: ED - Suspected SepsisNotes: TIME CRITICAL MEDICATION (Same As: Vancocin) Infusion rate 2001 mg: infuse over 2.5 hours For adult patients only: Round to nearest 250 mg per Medical Staff approval MEDICATION WASTE Product Size: 1000 mg Product Wasted: ___ mg Inactive 11/01/2018 [facility] meropenem 500 mg, Route: IVPB, Drug form: PDR/INJ, [id number], Dosing Weight 93.182, kg, CrCL=30 -49 ml/min, Extended infusion, infuse over 3 hours, Start date: 11/01/18 1:00:00 EMPLOYEE DEVELOPMENT MANAGER, Duration: 7 day, Stop date: 11/07/18 17:00:00 EMPLOYEE DEVELOPMENT MANAGER, ABX Indication: ED - Suspecte... Inactive 11/01/2018 [facility] Vancomycin 1 ea, Route: MISC, ONCALL, Dosing Weight 93.182, kg, Start date: 11/01/18 1:00:00 EMPLOYEE DEVELOPMENT MANAGER, Duration: 10 day, Stop date: 11/11/18 0:59:00 EMPLOYEE DEVELOPMENT MANAGER, Pharmacy to dose, ABX Indication: ED - Suspected Sepsis Inactive 11/01/2018 [facility] meropenem 500 mg, Route: IVPB, [id number], Dosing Weight 93.182, kg, CrCL=30 -49 ml/min, Extended infusion, infuse over 3 hours, Priority: STAT, Start date: 11/01/18 0:04:00 EMPLOYEE DEVELOPMENT MANAGER, Duration: 7 day, Stop date: 11/07/18 16:04:00 EMPLOYEE DEVELOPMENT MANAGER, ABX Indication: ED - Suspected Se...Notes: Same as Merrem MEDICATION WASTE Product Size: 500 mg Product Wasted: ___ mg No Longer Active 11/01/2018 [facility] Diltiazem 125 mg, 25 mL, Rate: Titrate, Start Dose: 5 mg/hr, Titration: 5 mg/hr every hour, Goal(s): Maintain HR Notes: (Same as: Cardizem) No Longer Active 11/01/2018 [facility] AMIODarone 900 mg in D5W 500 ml IV 900 mg + Dextrose 5% in Water IV 482 mL 900 mg, 18 mL, Rate: 1 mg/min for 6 hours, then reduce to 0.5 mg/min, Dosing Weight 93.182, kg, Route: IV, Total Volume: 500, Start Date: 11/01/18 0:01:00 EMPLOYEE DEVELOPMENT MANAGER, Duration: 30 day, Stop date: 12/01/18 0:00:00 CDT, Replace Every: 24 hrNotes: Central administration only for concentration > 2 mg/ml. Use Glass Bottle or Non PVC Bag "Use 0.22 micron in-line filter" MEDICATION WASTE Product Size: 900 mg Product Wasted: ___ mg No Longer Active 11/01/2018 [facility] 1/ NS 1,000 mL 1,000 mL, Rate: 125 ml/hr, Infuse over: 8 hr, Route: IV, Dosing Weight 93.182 kg, Total Volume: 1,000, Start date: 11/01/18 0:01:00 EMPLOYEE DEVELOPMENT MANAGER, Duration: 30 day, Stop date: 12/01/18 0:00:00 CDT, 2.15, m2 Inactive 11/01/2018 [facility] Vancomycin 125 mg, 2.5 mL, Route: PO, Drug form: SOLN, [id number], Dosing Weight 93.182, kg, Start date: 11/01/18 0:00:00 EMPLOYEE DEVELOPMENT MANAGER, Duration: 10 day, Stop date: 11/10/18 18:00:00 EMPLOYEE DEVELOPMENT MANAGER, ABX Indication: Infectious DiarrheaNotes: TIME CRITICAL MEDICATION Concentration=50 mg/ml. Keep in refrigerator. For oral use only. Vancomycin 1gm vial are used and reconstituted with 20ml of sterile water for a concentration of 50mg/ml. Draw up in nola po syringes. DO NOT USE IV SYRINGES. Inactive 11/01/2018 [facility] Calcium Carbonate 500 MG Chewable Tablet 500 mg, 1 tab, Route: PO, Drug form: CHEWTAB, PRN, Dosing Weight 93.182, kg, PRN Abnormal Lab Result, FOR ICU USE ONLY, Start date: 11/01/18 0:00:00 EMPLOYEE DEVELOPMENT MANAGER, Duration: 30 day, Stop date: 12/01/18 0:59:00 CDTNotes: (Same As: Tums) Calcium Carbonate 500 [id number] mg elemental calcium Dose= mg calcium carbonate ( mg elemental calcium) No Longer Active 11/01/2018 [facility] Magnesium Oxide 800 mg, 2 tab, Route: PO, Drug form: TAB, PRN, Dosing Weight 93.182, kg, PRN Abnormal Lab Result, FOR ICU USE ONLY, Start date: 11/01/18 0:00:00 EMPLOYEE DEVELOPMENT MANAGER, Duration: 30 day, Stop date: 12/01/18 0:59:00 CDTNot es: (Same as: Mag-Ox 400) Magnesium oxide [id number] elemental magnesium Dose=____mg magnesium oxide (___mg elemental magnesium) No Longer Active 11/01/2018 [facility] Calcium Gluconate 1 gm, 50 mL, Route: IVPB, Drug form: INJ, PRN, Dosing Weight 93.182, kg, PRN Abnormal Lab Result, Start date: 11/01/18 0:00:00 EMPLOYEE DEVELOPMENT MANAGER, Duration: 30 day, Stop date: 12/01/18 0:59:00 CDT, FOR ICU USE ONLYNotes: WASTE: F/P - Sink; E - Municipal Trash Bin No Longer Active 11/01/2018 [facility] potassium phosphate 45 mmol, 15 mL, Route: IVPB, PRN, Dosing Weight 93.182, kg, PRN Abnormal Lab Result, Start date: 11/01/18 0:00:00 EMPLOYEE DEVELOPMENT MANAGER, Duration: 30 day, Stop date: 12/01/18 0:59:00 CDT, FOR ICU USE ONLYNotes: (Same as: K Phosphate.) Do not infuse phosphorous concurrently in the same line as TPN or IVF that contains calcium. For double lumen central lines, phosphorous may be infused in a separate lumen from TPN. 1 mMol phoshate has 1.47 mEq potassium Infuse over 4 hours No Longer Active 11/01/2018 [facility] potassium phosphate-sodium phosphate 250 mg-280 mg-160 mg oral powder for reconstitution 2 pkt, Route: PO, Drug Form: PDR/REC, Dosing Weight 93.182, kg, PRN, PRN Abnormal Lab Result, FOR ICU USE ONLY, Start date: 11/01/18 0:00:00 EMPLOYEE DEVELOPMENT MANAGER, Duration: 30 day, Stop date: 12/01/18 0:59:00 CDTNotes: (Same as: Phos-NaK) Each 1.5 gm pkt has 250mg phosphorous. Mix w/2.5oz water and stir. No Longer Active 11/01/2018 [facility] Magnesium Sulfate 2 gm, 50 mL, Route: IVPB, Drug form: INJ, PRN, Dosing Weight 93.182, kg, PRN Abnormal Lab Result, Start date: 11/01/18 0:00:00 EMPLOYEE DEVELOPMENT MANAGER, Duration: 30 day, Stop date: 12/01/18 0:59:00 CDT, FOR ICU USE ONLYNotes: WASTE: F/P - Sink; E - Municipal Trash Bin No Longer Active 11/01/2018 [facility] sodium phosphate 15 mmol, 5 mL, Route: IVPB, PRN, Dosing Weight 93.182, kg, PRN Abnormal Lab Result, Start date: 11/01/18 0:00:00 EMPLOYEE DEVELOPMENT MANAGER, Duration: 30 day, Stop date: 12/01/18 0:59:00 CDT, FOR ICU USE ONLYNotes: Infuse over 4 hour. Do not infuse phosphorous concurrently in the same line as TPN or IVF that contains calcium. For double lumen central lines, phosphorous may be infused in a separate lumen from TPN. No Longer Active 11/01/2018 [facility] Potassium Chloride 20 mEq, 15 mL, Route: NJ, Drug form: LIQ, PRN, Dosing Weight 93.182, kg, PRN Abnormal Lab Result, Start date: 11/01/18 0:00:00 EMPLOYEE DEVELOPMENT MANAGER, Duration: 30 day, Stop date: 12/01/18 0:59:00 CDT, FOR ICU USE ONLYNotes: (Same as: Potassium Chloride) No Longer Active 11/01/2018 [facility] ocular lubricant 1 appl, Route: BOTH EYES, Q6H, Drug form: SOLN, Start date: 11/01/18 0:00:00 EMPLOYEE DEVELOPMENT MANAGER, Duration: 30 day, Stop date: 11/30/18 18:00:00 CDTNotes: (Same as: Aquasite) No Longer Active 11/01/2018 [facility] Fentanyl 1,250 microgram, 250 mL, Rate: Titrate, Start Dose: 50 microgram/hr, Titration: 25 micrograms/hour every 15 minutes, Goal(s): -2, Max Dose: 300 microgram/hr, Route: IV, Dosing Weight 93.182 kg, Total Vo lume: 250, Start date: 10/31/18 23:21:00 EMPLOYEE DEVELOPMENT MANAGER, Dur...Notes: Concentration: 5 microgram / ml No Longer Active 11/01/2018 [facility] chlorhexidine gluconate 1.2 MG/ML Mouthwash 15 mL, Route: Swab Mouth, PRN, Drug form: LIQ, PRN Other -See Comment, Start date: 10/31/18 23:20:00 EMPLOYEE DEVELOPMENT MANAGER, Duration: 30 day, Stop date: 12/01/18 0:19:00 CDTNotes: (Same As: Peridex) No Longer Active 11/01/2018 [facility] Allergies, Adverse Reactions, Alerts Substance Category Reaction Severity Reaction type Status Date Reported Comments Source Immunizations Immunization Date Given Site Status Last Updated Comments Source Results Order Name Results Value Reference Range Date Interpretation Comments Source CARDIAC ENZYMES Troponin-I 1.50 ng/mL 0.00 - 0.40 11/18/2018 Result Comment: Critical Result(s) called to pancho trejo_ at 11/18/2018 02:50 byjw. Read back OK. [facility] HEMATOLOGY PT 28.4 s 12.0 - 14.7 11/18/2018 [facility] HEMATOLOGY INR 2.74 0.85 - 1.17 11/18/2018 [facility] CARDIAC ENZYMES Troponin-I 1.90 ng/mL 0.00 - 0.40 11/18/2018 Result Comment: Critical Result(s) called to Pancho Hutton at 11/17/2018 21:04 by blanka. Read back OK. [facility] CARDIAC ENZYMES Troponin-I 2.10 ng/mL 0.00 - 0.40 11/17/2018 Result Comment: Critical Result(s) called to Malorie Benavidesh at 11/17/2018 15:30 by blanka. Read back OK. [facility] HEMATOLOGY PTT 65.9 s 22.9 - 35.8 11/17/2018 [facility] HEMATOLOGY PTT 68.3 s 22.9 - 35.8 11/17/2018 [facility] ELECTROLYTES AGAP 8.6 meq/L 10.0 - 20.0 11/17/2018 [facility] ELECTROLYTES Creatinine Lvl 2.23 mg/dL 0.50 - 1.40 11/17/2018 [facility] ELECTROLYTES Potassium Lvl 3.6 meq/L 3.5 - 5.1 11/17/2018 [facility] ELECTROLYTES Sodium Lvl 142 meq/L 135 - 145 11/17/2018 [facility] ELECTROLYTES Glucose Lvl 111 mg/dL 70 - 99 11/17/2018 [facility] ELECTROLYTES BUN 47 mg/dL 7 - 22 11/17/2018 [facility] ELECTROLYTES eGFR 26 mL/min/1.73m2 11/17/2018 Result Comment: The eGFR is calculated using the [...] from the National Kidney Disease Education Program (NKDEP) which additionally recommends that when the eGFR is used in patients with extremes of body mass index for purposes of drug dosing, the eGFR should be multiplied by the estimated BMI. [facility] ELECTROLYTES Calcium Lvl 8.0 mg/dL 8.5 - 10.5 11/17/2018 [facility] ELECTROLYTES CO2 30 meq/L 24 - 32 11/17/2018 [facility] ELECTROLYTES Chloride Lvl 107 meq/L 95 - 109 11/17/2018 [facility] HEMATOLOGY MPV 6.7 fL 7.4 - 10.4 11/17/2018 [facility] RDW 19.3 % 11.5 - 14.5 11/17/2018 [facility] Platelet 377 K/CMM 133 - 450 11/17/2018 [facility] HEMATOLOGY MCV 97.4 fL 80.0 - 94.0 11/17/2018 [facility] MCHC 32.6 g/dL 32.0 - 36.0 11/17/2018 [facility] MCH 31.7 pg 27.0 - 31.0 11/17/2018 [facility] Hgb 8.1 g/dL 14.0 - 18.0 11/17/2018 [facility] RBC 2.55 M/CMM 4.70 - 6.10 11/17/2018 [facility] WBC 12.3 K/CMM 3.7 - 10.4 11/17/2018 [facility] Hct 24.8 % 42.0 - 54.0 11/17/2018 [facility] PTT 69.5 s 22.9 - 35.8 11/17/2018 [facility] PT 32.4 s 12.0 - 14.7 11/17/2018 [facility] INR 3.25 0.85 - 1.17 11/17/2018 [facility] PT 29.3 s 12.0 - 14.7 11/16/2018 [facility] INR 2.85 0.85 - 1.17 11/16/2018 [facility] CHEM PANEL eGFR 24 mL/min/1.73m2 11/16/2018 Result Comment: The eGFR is calculated using the [...] from the National Kidney Disease Education Program (NKDEP) which additionally recommends that when the eGFR is used in patients with extremes of body mass index for purposes of drug dosing, the eGFR should be multiplied by the estimated BMI. [facility] CHEM PANEL Sodium Lvl 142 meq/L 135 - 145 11/16/2018 [facility] CHEM PANEL Creatinine Lvl 2.33 mg/dL 0.50 - 1.40 11/16/2018 [facility] CHEM PANEL BUN 50 mg/dL 7 - 22 11/16/2018 [facility] CHEM PANEL Glucose Lvl 121 mg/dL 70 - 99 11/16/2018 [facility] CHEM PANEL Potassium Lvl 4.0 meq/L 3.5 - 5.1 11/16/2018 [facility] CHEM PANEL CO2 28 meq/L 24 - 32 11/16/2018 [facility] CHEM PANEL Chloride Lvl 106 meq/L 95 - 109 11/16/2018 [facility] CHEM PANEL Calcium Lvl 8.2 mg/dL 8.5 - 10.5 11/16/2018 [facility] CHEM PANEL AGAP 12.0 meq/L 10.0 - 20.0 11/16/2018 [facility] HEMATOLOGY MCHC 32.6 g/dL 32.0 - 36.0 11/16/2018 [facility] RDW 19.1 % 11.5 - 14.5 11/16/2018 [facility] Platelet 400 K/CMM 133 - 450 11/16/2018 [facility] MPV 7.2 fL 7.4 - 10.4 11/16/2018 [facility] MCH 31.6 pg 27.0 - 31.0 11/16/2018 [facility] RBC 2.47 M/CMM 4.70 - 6.10 11/16/2018 [facility] Hgb 7.8 g/dL 14.0 - 18.0 11/16/2018 [facility] Hct 23.9 % 42.0 - 54.0 11/16/2018 [facility] MCV 96.9 fL 80.0 - 94.0 11/16/2018 [facility] WBC 14.5 K/CMM 3.7 - 10.4 11/16/2018 [facility] ELECTROLYTES CO2 28 meq/L 24 - 32 11/15/2018 [facility] Calcium Lvl 8.4 mg/dL 8.5 - 10.5 11/15/2018 [facility] ELECTROLYTES AGAP 10.3 meq/L 10.0 - 20.0 11/15/2018 [facility] ELECTROLYTES eGFR 25 mL/min/1.73m2 11/15/2018 Result Comment: The eGFR is calculated using the [...] from the National Kidney Disease Education Program (NKDEP) which additionally recommends that when the eGFR is used in patients with extremes of body mass index for purposes of drug dosing, the eGFR should be multiplied by the estimated BMI. [facility] ELECTROLYTES Chloride Lvl 106 meq/L 95 - 109 11/15/2018 [facility] ELECTROLYTES Potassium Lvl 4.3 meq/L 3.5 - 5.1 11/15/2018 [facility] ELECTROLYTES Glucose Lvl 108 mg/dL 70 - 99 11/15/2018 [facility] ELECTROLYTES BUN 52 mg/dL 7 - 22 11/15/2018 [facility] ELECTROLYTES Creatinine Lvl 2.27 mg/dL 0.50 - 1.40 11/15/2018 [facility] ELECTROLYTES Sodium Lvl 140 meq/L 135 - 145 11/15/2018 [facility] ENDOCRINOLOGY Cortisol 10.8 ug/dl 11/15/2018 [facility] ENDOCRINOLOGY Aldosterone 6.4 ng/dL 0.0 - 30.0 11/15/2018 Result Comment: This test was developed and its performance characteristics determined by [facility]. It has not been cleared or approved by the Food and Drug Administration. Performed At: [facility] [id number] Nolan Narvaez MD Ph:[phone] [facility] MCV 96.6 fL 80.0 - 94.0 11/14/2018 [facility] MCH 31.0 pg 27.0 - 31.0 11/14/2018 [facility] MCHC 32.1 g/dL 32.0 - 36.0 11/14/2018 [facility] Platelet 403 K/CMM 133 - 450 11/14/2018 [facility] RDW 17.3 % 11.5 - 14.5 11/14/2018 [facility] MPV 7.0 fL 7.4 - 10.4 11/14/2018 [facility] WBC 14.5 K/CMM 3.7 - 10.4 11/14/2018 [facility] RBC 2.47 M/CMM 4.70 - 6.10 11/14/2018 [facility] Hgb 7.6 g/dL 14.0 - 18.0 11/14/2018 [facility] Hct 23.8 % 42.0 - 54.0 11/14/2018 [facility] Chest 1view DX Chest 1view DX 1 VIEW CXR. PORTABLE EXAM 4:01 PM HISTORY: Hypoxia. COMPARISON: 11/05/2018 chest x-ray. Cardiomediastinal silhouette is stable. There is almost complete resolution of interstitial edema noted previously. There is probably still small amount of right pleural fluid. Left lung clear. Pacemaker device stable. IMPRESSION: Significant improvement in the chest over the one week interval. END OF IMPRESSION SL: [id number] 11/12/2018 - - Read by: Gerry Tavares MD Dictated Date/time: 11/12/18 22:49 Electronically Signed by: Gerry Tavares MD 11/12/18 22:50 FINAL REPORT [facility] CHEM PANEL Procalcitonin Lvl 0.45 ng/mL 0.00 - 0.10 11/12/2018 [facility] CARDIAC ENZYMES BNP 195 pg/mL <=100 pg/mL 11/11/2018 [facility] CHEM PANEL Magnesium Lvl 2.3 mg/dL 1.8 - 2.4 11/11/2018 [facility] CHEM PANEL Phosphorus 5.2 mg/dL 2.5 - 4.5 11/11/2018 [facility] HEMATOLOGY Monocytes 6.8 % 2.0 - 12.0 11/11/2018 [facility] Lymphocytes 5.3 % 20.0 - 40.0 11/11/2018 [facility] HEMATOLOGY Segs 87.2 % 45.0 - 75.0 11/11/2018 [facility] Neutrophils # 19.7 K/CMM 1.5 - 8.1 11/11/2018 [facility] HEMATOLOGY Basophils 0.3 % 0.0 - 1.0 11/11/2018 [facility] Eosinophils 0.4 % 0.0 - 4.0 11/11/2018 [facility] Monocytes # 1.5 K/CMM 0.0 - 0.8 11/11/2018 [facility] HEMATOLOGY Lymphocytes # 1.2 K/CMM 1.0 - 5.5 11/11/2018 [facility] Basophils # 0.1 K/CMM 0.0 - 0.2 11/11/2018 [facility] Eosinophils # 0.1 K/CMM 0.0 - 0.5 11/11/2018 [facility] Brain Stroke wo contrast CT Brain Stroke wo contrast CT Patient Name: KAYLYN MEMBRENO : 1930; Age: 88 years Male MR: [id number] Study: Brain Stroke wo contrast CT 11/10/2018 14:24 EMPLOYEE DEVELOPMENT MANAGER Clinical Indication: - r/o stroke. Rapid response team called, mental status changes. COMPARISON: 11/01/2018 TECHNIQUE: CT images were obtained from the foramen magnum to the vertex without the use of intravenous contrast on a multidetector CT. Coronal and sagittal reconstructions were obtained. CT imaging performed at this location utilizes radiation dose optimization techniques which include one or more of the following: -Automated exposure control -Adjustment of the mA and/or kV according to patient size -Use of iterative reconstruction technique CT Radiation Dose DLP mGy-cm FINDINGS: BRAIN PARENCHYMA: There is generalized brain parenchymal atrophy related to the patient's age. Nonspecific periventricular white matter disease changes are noted. Atherosclerotic calcifications are present within the carotid siphons and distal vertebral arteries. There are no focal mass lesions on this noncontrast head CT. There is no mass effect, midline shift or edema. There are no intra-axial or extra-axial fluid collections. There is no intraventricular or intraparenchymal hemorrhage. There is no noncontrast CT evidence of a subacute stroke. The pineal, sellar, brainstem, cerebellum and skull base regions appear normal. VENTRICLES: The lateral ventricles, third and fourth ventricles appear normal. The basilar cisterns are normal. ORBITS, MASTOIDS AND PARANASAL SINUSES: The visualized orbits are normal. The visualized paranasal sinuses are normal. The mastoid air cells are clear. SKULL: There are no calvarial abnormalities seen. If there is further concern for intracranial pathology or acute stroke, MRI of the brain may be performed for complete assessment. IMPRESSION: Chronic age-related and small vessel ischemic changes without mass, hemorrhage or subacute stroke. These findings are communicated to the patient's nurse Ling at 11/10/2018 14:47 EMPLOYEE DEVELOPMENT MANAGER. SL: [id number] 11/10/2018 - - Read by: Jb Henderson MD Dictated Date/time: 11/10/18 14:47 Electronically Signed by: Jb Henderson MD 11/10/18 14:53 FINAL REPORT [facility] CHEM PANEL Magnesium Lvl 1.8 mg/dL 1.8 - 2.4 11/10/2018 [facility] HEMATOLOGY Monocytes # 1.0 K/CMM 0.0 - 0.8 11/10/2018 [facility] HEMATOLOGY Basophils # 0.1 K/CMM 0.0 - 0.2 11/10/2018 [facility] HEMATOLOGY Eosinophils # 0.5 K/CMM 0.0 - 0.5 11/10/2018 [facility] HEMATOLOGY Monocytes 4.8 % 2.0 - 12.0 11/10/2018 [facility] HEMATOLOGY Lymphocytes # 1.2 K/CMM 1.0 - 5.5 11/10/2018 [facility] HEMATOLOGY Basophils 0.4 % 0.0 - 1.0 11/10/2018 [facility] HEMATOLOGY Eosinophils 2.2 % 0.0 - 4.0 11/10/2018 [facility] Neutrophils # 18.4 K/CMM 1.5 - 8.1 11/10/2018 [facility] Lymphocytes 5.8 % 20.0 - 40.0 11/10/2018 [facility] Segs 86.8 % 45.0 - 75.0 11/10/2018 [facility] Basophils # 0.1 K/CMM 0.0 - 0.2 11/10/2018 [facility] Metamyelocytes 3.0 % 0.0 - 1.0 11/10/2018 [facility] Lymphocytes # 1.1 K/CMM 1.0 - 5.5 11/10/2018 [facility] Eosinophils # 0.6 K/CMM 0.0 - 0.5 11/10/2018 [facility] Monocytes # 2.1 K/CMM 0.0 - 0.8 11/10/2018 [facility] Large Plt Moderate *ABN* (11/09/18 11:44 PM) None Seen 11/10/2018 [facility] Myelocytes 10.0 % <=0.0 % 11/10/2018 [facility] Polychrom Moderate *ABN* (11/09/18 11:44 PM) None Seen 11/10/2018 [facility] Toxic Gran Moderate *ABN* (11/09/18 11:44 PM) None Seen 11/10/2018 [facility] Neutrophils # 14.6 K/CMM 1.5 - 8.1 11/10/2018 [facility] Monocytes 10.0 % 2.0 - 12.0 11/10/2018 [facility] Lymphocytes 5.0 % 20.0 - 40.0 11/10/2018 [facility] HEMATOLOGY Eosinophils 3.0 % 0.0 - 4.0 11/10/2018 [facility] HEMATOLOGY Bands 5.0 % 0.0 - 11.0 11/10/2018 [facility] HEMATOLOGY Segs 64.0 % 45.0 - 75.0 11/10/2018 [facility] CHEM PANEL Magnesium Lvl 1.9 mg/dL 1.8 - 2.4 11/08/2018 [facility] HEMATOLOGY Basophils 1.0 % 0.0 - 1.0 11/08/2018 [facility] HEMATOLOGY Atypical Lymphs 0.0 % <=0.0 % 11/08/2018 [facility] HEMATOLOGY Polychrom occasional 11/08/2018 [facility] HEMATOLOGY Plt Morph Normal (11/08/18 4:56 AM) 11/08/2018 [facility] HEMATOLOGY Bands 0.0 % 0.0 - 11.0 11/08/2018 [facility] CHEM PANEL A/G Ratio 0.6 0.7 - 1.6 11/07/2018 [facility] CHEM PANEL Globulin 3.7 g/dL 2.7 - 4.2 11/07/2018 [facility] CHEM PANEL B/C Ratio 27 6 - 25 11/07/2018 [facility] CHEM PANEL Albumin Lvl 2.2 g/dL 3.5 - 5.0 11/07/2018 [facility] CHEM PANEL Total Protein 5.9 g/dL 6.4 - 8.4 11/07/2018 [facility] CHEM PANEL ALT 39 unit/L 0 - 65 11/07/2018 [facility] CHEM PANEL AST 57 unit/L 0 - 37 11/07/2018 [facility] CHEM PANEL Alk Phos 67 unit/L 39 - 136 11/07/2018 [facility] CHEM PANEL Bili Total 0.7 mg/dL 0.2 - 1.3 11/07/2018 [facility] CHEM PANEL Alk Phos 62 unit/L 39 - 136 11/06/2018 [facility] CHEM PANEL Bili Total 0.6 mg/dL 0.2 - 1.3 11/06/2018 [facility] CHEM PANEL Total Protein 5.5 g/dL 6.4 - 8.4 11/06/2018 [facility] CHEM PANEL AST 45 unit/L 0 - 37 11/06/2018 [facility] CHEM PANEL Albumin Lvl 2.0 g/dL 3.5 - 5.0 11/06/2018 [facility] CHEM PANEL ALT 33 unit/L 0 - 65 11/06/2018 [facility] CHEM PANEL A/G Ratio 0.6 0.7 - 1.6 11/06/2018 [facility] CHEM PANEL Globulin 3.5 g/dL 2.7 - 4.2 11/06/2018 [facility] CHEM PANEL B/C Ratio 27 6 - 25 11/06/2018 [facility] CHEM PANEL Procalcitonin Lvl 1.28 ng/mL 0.00 - 0.10 11/06/2018 [facility] HEMATOLOGY Anisocyte 1+ *ABN* (11/06/18 2:46 AM) None Seen 11/06/2018 [facility] HEMATOLOGY Plt Morph Normal (11/06/18 2:46 AM) 11/06/2018 [facility] Chest 1view DX Chest 1view DX Chest 1view DX 11/05/2018 11:49 EMPLOYEE DEVELOPMENT MANAGER Ordering Physician: Reyes Batista MD CLINICAL HISTORY: - sob; TECHNIQUE: AP view of the chest was obtained. COMPARISON: Prior few days FINDINGS: Bibasilar airspace opacities and pleural effusions are present, right greater than left. No radiographically detectable pneumothorax is present. Cardiomediastinal silhouette is unchanged. Bones are unchanged. Lifelines are stable. IMPRESSION: Persistent bibasilar subsegmental atelectasis and/or consolidation, with mild bilateral pleural effusions right possibly greater than left. SL: [id number] 11/05/2018 - - Read by: Kenia Mcclain MD Dictated Date/time: 11/05/18 13:58 Electronically Signed by: Kenia Mcclain MD 11/05/18 13:59 FINAL REPORT [facility] Chest 1 v for Placement DX Chest 1 v for Placement DX Portable chest: The endotracheal tube has been removed since the earlier exam on the same day. The NG tube tip is in the gastric fundus. The left jugular central line and pacemaker remain in place. Right lower lobe alveolar infiltrate and small right basilar effusion are unchanged considering positioning. The left lung and pleural space are clear. There are no other new findings. [id number] 11/03/2018 - - Read by: Hawk Todd MD Dictated Date/time: 11/03/18 14:54 Electronically Signed by: Hawk Todd MD 11/03/18 14:56 FINAL REPORT [facility] Chest 1view DX Chest 1view DX Patient Name: KAYLYN MEMBRENO : 1930 Age: 88 years, Male MR: [id number] Study: Chest 1view DX 11/03/2018 9:11 EMPLOYEE DEVELOPMENT MANAGER Indication: Absent of breath sounds - pneumonia. Comparison: Portable chest 10/31/2018 Findings: Lines/tubes: Endotracheal catheter is present with the tip projecting over the expected region of the trachea, positioned 3.3 cm from the ayden. Left chest cardiac device with leads projecting over the expected regions of the right atrium and ventricle. Enteric feeding catheter with tip extending below the inferior margin of the examination, likely within the gastric body. Left internal jugular temporary central venous catheter with tip projecting over the expected region of the right atrium. Cardiovascular: Normal cardiac silhouette. Atherosclerotic calcifications. Mediastinum: No mediastinal or hilar mass or lymphadenopathy. Lungs: No parenchymal mass. Right infrahilar airspace opacity. Pleura: Bilateral pleural effusions. No pneumothorax. Soft tissues: Normal. Bones: No acute osseous abnormality. Degenerative changes of the thoracic spine. IMPRESSION: Right infrahilar airspace opacity may represent atelectasis or developing pneumonia. Bilateral pleural effusions. SL: [id number] 11/03/2018 - - Read by: Suman Stevens MD Dictated Date/time: 11/03/18 10:14 Electronically Signed by: Suman Stevens MD 11/03/18 10:17 FINAL REPORT [facility] TOXICOLOGY Vanco Tr TND 0300 11/03/2018 [facility] TOXICOLOGY Vanco Tr 19.5 ug/ml 11/03/2018 [facility] DORIPENEM:SUSC:PT:ISOLATE:ORDQN:JULES Culture: Urine >10,000 CFU/mL Pseudomonas aeruginosa . >10,000 CFU/mL Yeast 11/03/2018 [facility] DORIPENEM:SUSC:PT:ISOLATE:ORDQN:JULES Pseudomonas aeruginosa Pseudomonas aeruginosa 11/03/2018 [facility] CEFTAZIDIME:SUSC:PT:ISOLATE:ORDQN:JULES Gram Stain Report Gram Stain Performed By: [facility] 11/02/2018 [facility] CEFTAZIDIME:SUSC:PT:ISOLATE:ORDQN:JULES Culture: Respiratory w/Gram Stain Few Stenotrophomonas Maltophilia Few Yeast Normal Celia Absent 11/02/2018 [facility] CEFTAZIDIME:SUSC:PT:ISOLATE:ORDQN:JULES Stenotrophomonas Maltophilia Stenotrophomonas Maltophilia 11/02/2018 [facility] BACTERIAL - SEROLOGY MRSA by PCR Negative (11/01/18 4:56 PM) 11/01/2018 [facility] MOLECULAR DIAGNOSTIC Source Adenovirus PCR [employer] MARKET RESEARCH COORDINATOR Swab (11/01/18 4:56 PM) 11/01/2018 [facility] DIAGNOSTIC Adenovirus PCR Negative (11/01/18 4:56 PM) Negative 11/01/2018 [facility] MOLECULAR DIAGNOSTIC Parainfluenza 1 PCR Negative (11/01/18 4:56 PM) Negative 11/01/2018 [facility] DIAGNOSTIC Parainfluenza 2 PCR Negative (11/01/18 4:56 PM) Negative 11/01/2018 [facility] DIAGNOSTIC Source Parainfluenza Virus PCR [employer] MARKET RESEARCH COORDINATOR Swab (11/01/18 4:56 PM) 11/01/2018 [facility] Parainfluenza 3 PCR Negative (11/01/18 4:56 PM) Negative 11/01/2018 [facility] DIAGNOSTIC RSV PCR Negative (11/01/18 4:56 PM) Negative 11/01/2018 [facility] Influenza B PCR Negative (11/01/18 4:56 PM) Negative 11/01/2018 [facility] Source Respiratory Panel PCR [employer] MARK[employer] RESEARCH COORDINATOR Swab (11/01/18 4:56 PM) 11/01/2018 [facility] Influenza A PCR Negative (11/01/18 4:56 PM) Negative 11/01/2018 [facility] HEMATOLOGY Large Plt Slight 11/01/2018 [facility] HEMATOLOGY Polychrom Slight 11/01/2018 [facility] HEMATOLOGY Neut Vac Slight 11/01/2018 [facility] Plt Morph Normal (11/01/18 11:47 AM) 11/01/2018 [facility] HEMATOLOGY Atypical Lymphs 0.0 % <=0.0 % 11/01/2018 [facility] HEMATOLOGY Bands 26.0 % 0.0 - 11.0 11/01/2018 [facility] CHEM PANEL Lactic Acid Lvl 7.4 mMol/L 0.5 - 2.2 11/01/2018 Result Comment: Critical Result(s) called to nirmal gill at 11/01/2018 08:26 by BP. Read back OK. [facility] Abdomen AP DX Abdomen AP DX Patient Name: KAYLYN BARE : 1930; Age: 88 years y/o Male MR: [id number] Study: Abdomen AP DX 11/01/2018 10:25 EMPLOYEE DEVELOPMENT MANAGER Ordering Physician: Venancio Laurent MD Comparison: 04/06/2011 Clinical Indication: - eval position of universal stent; Right nephroureterostomy tube is present with the superior pigtail at the mid right abdomen and the inferior pigtail at the right side of the pelvis. Enteric contrast is present at the transverse colon, left colon and rectum. Surgical clips are present at the pelvis bilaterally. 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 SL: [id number] 11/01/2018 - - Read by: Zacarias Cooney MD Dictated Date/time: 11/01/18 11:38 Electronically Signed by: Zacarias Cooney MD 11/01/18 11:43 FINAL REPORT [facility] CHEM PANEL Lactic Acid Lvl 7.9 mMol/L 0.5 - 2.2 11/01/2018 Result Comment: Critical Result(s) called to RN. Nika Raymundo at 11/01/2018 04:40 by drt. Read back OK. [facility] CHEM PANEL Phosphorus 3.4 mg/dL 2.5 - 4.5 11/01/2018 [facility] CHEM PANEL Total Protein 7.1 g/dL 6.4 - 8.4 11/01/2018 [facility] CHEM PANEL Albumin Lvl 2.8 g/dL 3.5 - 5.0 11/01/2018 [facility] CHEM PANEL Bili Total 0.9 mg/dL 0.2 - 1.3 11/01/2018 [facility] CHEM PANEL ALT 20 unit/L 0 - 65 11/01/2018 [facility] CHEM PANEL AST 36 unit/L 0 - 37 11/01/2018 [facility] CHEM PANEL Alk Phos 70 unit/L 39 - 136 11/01/2018 [facility] CHEM PANEL Globulin 4.3 g/dL 2.7 - 4.2 11/01/2018 [facility] CHEM PANEL A/G Ratio 0.7 0.7 - 1.6 11/01/2018 [facility] CHEM PANEL B/C Ratio 12 6 - 25 11/01/2018 [facility] Culture: Urine Specimen contains 3 or more potential pathogens; recommend correlation with urinalysis; if catheterized specimen recommend removal and recollection. If clinical situation warrants please call the laboratory for further testing. [place] [facility] [phone]. 11/01/2018 [facility] CHEM PANEL Lactic Acid Lvl 7.2 mMol/L 0.5 - 2.2 11/01/2018 Result Comment: Critical Result(s) called to RN. Claudia Gruber at 11/01/2018 01:07 by cheryl. Read back OK. [facility] MOLECULAR DIAGNOSTIC C difficile DNA Negative (11/01/18 12:19 AM) Negative 11/01/2018 [facility] CHEM PANEL Phosphorus 3.0 mg/dL 2.5 - 4.5 11/01/2018 [facility] HEMATOLOGY Metamyelocytes 4.0 % 0.0 - 1.0 11/01/2018 [facility] HEMATOLOGY RBC Morph Normal (10/31/18 11:09 PM) 11/01/2018 [facility] Brain wo contrast CT Brain wo contrast CT CT head without contrast Clinical Indication: Altered mental status. Comparison: None. TECHNIQUE: CT images were obtained from the foramen magnum to the vertex without the use of intravenous contrast on a multidetector CT. CT imaging was performed with exposure control parameters to reduce radiation dose. Coronal and sagittal reconstructions were obtained. CT radiation dose DLP: 687.98 mGy-cm FINDINGS: There is mild periventricular and deep white matter hypoattenuation, most consistent with chronic small vessel ischemic disease. No intra or extra-axial fluid or blood collection is seen. No mass or midline shift. Ventricles and sulci are prominent secondary to mild atrophy. Calvarium is intact. Visualized paranasal sinuses and mastoid air cells are clear. IMPRESSION: Age-related involutional changes with no acute intracranial abnormality. SL: [id number] 11/01/2018 - - Read by: Cinthia Ingram MD Dictated Date/time: 11/01/18 01:31 Electronically Signed by: Cinthia Ingram MD 11/01/18 01:34 FINAL REPORT [facility] Abdomen/Pelvis wo IV contrast CT Abdomen/Pelvis wo IV contrast CT Clinical Indication: - sever sepsis with lactate of 23 ? bowel ichemia; Comparison: 11/23/2011 Technique: Multi-detector CT imaging of the abdomen and pelvis is performed without IV contrast. Coronal and sagittal reconstructions were obtained. GI CONTRAST: oral contrast was administered. CT Radiation Dose: DLP 950.99 mGy-cm FINDINGS: CT ABDOMEN WITHOUT CONTRAST: Lower chest: Small bilateral pleural effusion is noted with bilateral basilar consolidation, worse on the right. Small calcified granuloma seen in the right lung base. Significant calcified plaques are noted in the coronary arteries and descending thoracic aorta. Heart is mildly enlarged. Artifact from the cardiac pacer device leads ABDOMINAL SOLID ORGANS: The limited noncontrast enhanced images of the liver, spleen and adrenals are normal. Gallbladder is not definitively visualized and may have been removed in the interim or contracted. Decreased density with mild stranding around the head of the pancreas and adjacent mesentery may be due to fatty infiltration. Please correlate with labs to exclude pancreatitis. There is a percutaneous nephrostomy tube. There is a ureteral stent on the right. There are inflammatory changes around the both kidneys with fatty stranding. Right kidney is small and atrophied. There is a 1.5 cm exophytic nodule at the upper pole of the right kidney anteriorly with Hounsfield units 26. There is also a exophytic nodule along the posterior aspect of the right kidney at the upper pole, measuring 1.7 cm, probably cyst. STOMACH AND BOWEL: Ingested contrast has reached to the colon with no evidence for contrast extravasation no pericolonic inflammation or abnormal small bowel dilation. No evidence for bowel obstruction. The stomach is unremarkable. The appendix is normal . Moderate fecal material in the colon. PERITONEUM AND RETROPERITONEUM: There is no abdominal lymphadenopathy. There is no pneumoperitoneum. Trace fluid in the Morison pouch. VASCULAR STRUCTURES: Ectatic abdominal aorta is noted with significant calcified plaques. Calcified plaque at the splenic artery, takeoff of the celiac trunk, superior mesenteric artery and bilateral proximal renal arteries noted. Calcified plaques in bilateral iliac and femoral arteries. CT PELVIS WITHOUT CONTRAST: PERITONEAL AND EXTRAPERITONEAL REGIONS: There is no pelvic free fluid or lymphadenopathy. Small bowel containing right inguinal hernia. BLADDER / : The bladder is surgically absent. Prostate is also not visualized. There is a right ureteral stent ending in the anterior lower right pelvis with the urinary diversion in the right anterior lower pelvis/groin OSSEOUS STRUCTURES: There are diffuse bony osteopenia. Moderate degenerative changes in bilateral hip joint seen left scoliosis of the thoracolumbar spine with mild degenerative changes.. IMPRESSION: 1. Decreased density with mild stranding around the head of the pancreas and adjacent mesentery and trace fluid in the Morison pouch. Pancreatitis of pancreatic head would be in differential. Please correlateStatus post cystectomy with urinary diversion. 2. Herniated contrast containing bowel loops at the site of urinary diversion/right groin. 3. Small and atrophic right kidney. Percutaneous right nephrostomy tube and right ureteral stent in place. There is a cyst at the posterior aspect of the right kidney with an indeterminate lesion in the anterior aspect upper pole of the right kidney. If indicated, renal ultrasound or magnetic resonance imaging can be obtained for complete assessment. 4. Ingested contrast has reached to the colon with no evidence for contrast extravasation. No pericolonic inflammation or abnormal bowel dilation. No evidence for bowel obstruction. 5. Bilateral basilar atelectasis or consolidation with small bilateral pleural effusion. 6. Extensive atherosclerosis. SL: [ALEXA] 10/31/2018 - - Read by: Suleman Quiroz MD Dictated Date/time: 11/01/18 01:44 Electronically Signed by: Suleman Quiroz MD 11/01/18 02:08 FINAL REPORT [facility] Chest 1view DX Chest 1view DX Clinical Indication: Tube placement/removal/reposition - respiratory failure; Comparison: 11/23/2011 FINDINGS: The portable AP single view radiograph provided for review. Patient is intubated, tip of endotracheal tube 4.1 cm above ayden. A nasogastric tube in place, tip in the mid upper abdomen, probably within the gastric body. A left IJ venous catheter is noted, tip in the anatomical location of superior vena cava. A left cardiac pacer device is also present. Cardiomediastinal silhouette and osseous structures are stable. Calcified plaque in aortic arch is seen right lower lobe opacity in the small right pleural effusion present. No definitive pneumothorax is seen. IMPRESSION: 1. Interval placement of satisfactory life support line as above 2. Right lower lobe opacity may represent pneumonia. Small right pleural effusion.. SL: ALEXA 10/31/2018 - - Read by: Suleman Quiroz MD Dictated Date/time: 10/31/18 23:43 Electronically Signed by: Suleman Quiroz MD 10/31/18 23:48 FINAL REPORT [facility] Vital Signs Vital Sign Value Date Comments Source Systolic (mm Hg) 129 11/18/2018 [facility] Diastolic (mm Hg) 82 11/18/2018 [facility] Respitory Rate 19 11/18/2018 [facility] Systolic (mm Hg) 113 11/18/2018 [facility] Diastolic (mm Hg) 55 11/18/2018 [facility] Respitory Rate 22 11/18/2018 [facility] Temperature Oral (F) 97.3 F 11/18/2018 [facility] Respitory Rate 18 11/18/2018 [facility] Systolic (mm Hg) 121 11/18/2018 [facility] Diastolic (mm Hg) 69 11/18/2018 [facility] Temperature Oral (F) 98.4 F 11/18/2018 [facility] Temperature Oral (F) 98.6 F 11/18/2018 [facility] Height 177.8 cm 11/03/2018 [facility] Height 175.26 cm 11/03/2018 [facility] Height 175.26 cm 11/03/2018 [facility] Weight 93.182 11/01/2018 [facility] Weight 93.182 11/01/2018 [facility] BMI Calculated 30.48 11/01/2018 [facility] BMI Calculated 25.73 11/01/2018 [facility] Encounters Location Location Details Encounter Type Encounter Number Reason For Visit Attending Provider ADM Date DC Date Status Source [facility] Inpatient [id number] Davy Susanne 11/01/2018 11/18/2018 [facility] Procedures Procedure Code Date Perfomer Comments Source
--- NOTE | 2018-12-24 12:22 | Diagnostic Imaging Report ---
Exam: Abdominal film Clinical History: Nephrostomy tube Comparison: Nephrostomy tube exchange 10/08/2018 DISCUSSION: Right-sided nephroureteral catheter is unchanged in position relative to images after exchange performed 10/08/2018. Bowel gas pattern is nonobstructive. Regional skeletal structures intact with multilevel degenerative disc disease. Advanced degenerative arthrosis of the right hip and moderate degenerative arthrosis of the left hip. A ICD lead partially visualized. IMPRESSION: Right percutaneous nephroureteral catheter is stable in position relative to 10/08/2018. Signed by: Dr. Hawk Bermeo M.D. on 12/24/2018 12:19 PM
[2018-12-24 12:51] LABS: COLOR,URINE YELLOW (YELLOW)
[2018-12-24 12:52] LABS: BILIRUBIN,URINE NEGATIVE (NEGATIVE); CLARITY,URINE SL CLOUDY (CLEAR); KETONES,URINE NEGATIVE (NEGATIVE); NITRITE,URINE NEGATIVE (NEGATIVE); PROTEIN,URINE DIPSTICK 2+ (NEGATIVE); URINE UROBILINOGEN 0.2 mg/dL (0.2 - 1)
[2018-12-24 12:53] LABS: LEUKOCYTE ESTERASE ,URINE 2+ (NEGATIVE)
[2018-12-24 13:04] LABS: BACTERIA,URINE MANY /HPF; RBC,URINE 0-5 /HPF (0-5); WBC,URINE (MAN) >50 /HPF (0-5)
[2018-12-24 13:05] LABS: EPITHELIAL CELLS,URINE FEW /LPF
[2018-12-24 13:51] VITALS: BP 130/89
--- NOTE | 2018-12-24 14:26 | Diagnostic Imaging Report ---
Date and Time: 12/24/2018 Procedure: Right percutaneous nephroureteral catheter exchange mash filter operator: Dr. Bermeo Pre-operative diagnosis: Dysfunctional right percutaneous nephroureteral catheter Post-operative diagnosis: Functional right percutaneous nephroureteral catheter Conscious Sedation: Versed 0.5 mg and Fentanyl 25 mcg. The patient's heart rate and pulse oximetry were continuously monitored by the interventional radiology nurse. Blood pressure was monitored at 5 minute intervals. Total monitored sedation time: 20 minutes Additional Medications: Lidocaine 1% for local anesthesia. A dose of intravenous meropenem had been administered in the emergency center prior to the procedure. Fluoroscopy time: 1.2 minutes Dose-area Product: 376.4 cGycm2. Contrast used: 10 cc Isovue-300 Estimated blood loss: Minimal Blood products administered: None Complications: No immediate Specimens: Percutaneous nephroureteral catheter, discarded Implants: 8.5 Indonesian, 24 cm interloop length nephroureteral catheter DISCUSSION: Informed consent was obtained and documented in the medical record after discussion of risks and benefits. The patient was placed in the prone position on the angiographic table. The right flank and existing percutaneous nephroureteral catheter were prepped and draped in the standard sterile fashion. 1% lidocaine was infiltrated into the skin and subcutaneous tissues along side the catheter for local anesthesia. A small amount of dilute contrast material was injected through the catheter, confirming appropriate position. The retention suture for the catheter was then cut. The catheter was severed and a 0.0 3 5-in. hydrophilic wire was advanced through the catheter and into the ileal conduit. The catheter was removed over the wire and a new 8.5 Indonesian, 24 cm interloop length nephroureteral catheter was advanced over the wire under fluoroscopic guidance. The wire was removed. The distal locking loop was formed within the ileal conduit. The proximal locking loop was formed within the renal pelvis. Appropriate position was confirmed by injection of dilute contrast material. The catheter was then flushed copiously with sterile saline, secured to the skin with monofilament nylon suture, and connected to gravity drainage. A sterile dressing was applied. The patient tolerated the procedure well without immediate complication. IMPRESSION: Successful right percutaneous nephroureteral catheter exchange (8.5 Indonesian, 24 cm interloop length). Catheter management per referring urologist. The patient should return for routine catheter exchange in 2-3 months. Signed by: Dr. Hawk Bermeo M.D. on 12/24/2018 2:22 PM
--- NOTE | 2018-12-29 14:14 | Diagnostic Imaging Report ---
Date and Time: 12/24/2018 Procedure: Right percutaneous nephroureteral catheter exchange recordak operator: Dr. Bermeo Pre-operative diagnosis: Dysfunctional right percutaneous nephroureteral catheter Post-operative diagnosis: Functional right percutaneous nephroureteral catheter Conscious Sedation: Versed 0.5 mg and Fentanyl 25 mcg. The patient's heart rate and pulse oximetry were continuously monitored by the interventional radiology nurse. Blood pressure was monitored at 5 minute intervals. Total monitored sedation time: 20 minutes Additional Medications: Lidocaine 1% for local anesthesia. A dose of intravenous meropenem had been administered in the emergency center prior to the procedure. Fluoroscopy time: 1.2 minutes Dose-area Product: 376.4 cGycm2. Contrast used: 10 cc Isovue-300 Estimated blood loss: Minimal Blood products administered: None Complications: No immediate Specimens: Percutaneous nephroureteral catheter, discarded Implants: 8.5 [place], 24 cm interloop length nephroureteral catheter DISCUSSION: Informed consent was obtained and documented in the medical record after discussion of risks and benefits. The patient was placed in the prone position on the angiographic table. The right flank and existing percutaneous nephroureteral catheter were prepped and draped in the standard sterile fashion. 1% lidocaine was infiltrated into the skin and subcutaneous tissues along side the catheter for local anesthesia. A small amount of dilute contrast material was injected through the catheter, confirming appropriate position. The retention suture for the catheter was then cut. The catheter was severed and a 0.0 3 5-in. hydrophilic wire was advanced through the catheter and into the ileal conduit. The catheter was removed over the wire and a new 8.5 [place], 24 cm interloop length nephroureteral catheter was advanced over the wire under fluoroscopic guidance. The wire was removed. The distal locking loop was formed within the ileal conduit. The proximal locking loop was formed within the renal pelvis. Appropriate position was confirmed by injection of dilute contrast material. The catheter was then flushed copiously with sterile saline, secured to the skin with monofilament nylon suture, and connected to gravity drainage. A sterile dressing was applied. The patient tolerated the procedure well without immediate complication. IMPRESSION: Successful right percutaneous nephroureteral catheter exchange (8.5 [place], 24 cm interloop length). Catheter management per referring urologist. The patient should return for routine catheter exchange in 2-3 months. Signed by: Dr. Hawk Bermeo M.D. on 12/24/2018 2:22 PM
== END | disposition home or self-care (01) ==
LOC: ER 10:31 → CATH LAB 13:30
PROVIDERS: ATTEND Internal Medicine
DX: N99.522 Malfunction of incontinent external stoma of urinary tract (principal); N39.0 Urinary tract infection, site not specified; I12.9 Hypertensive chronic kidney disease with stage 1 through stage 4 chronic kidney disease, or unspecified chronic kidney disease; N18.9 Chronic kidney disease, unspecified; I25.2 Old myocardial infarction; I48.91 Unspecified atrial fibrillation; E03.9 Hypothyroidism, unspecified; Y83.8 Other surgical procedures as the cause of abnormal reaction of the patient, or of later complication, without mention of misadventure at the time of the procedure; Z79.01 Long term (current) use of anticoagulants; Z85.51 Personal history of malignant neoplasm of bladder
CPT/HCPCS: 50435; 74018; 74470; 75984; 81001; 87086; 87186; 99284; C2625; J0690; J2001; J2185; J2250; J7040